=== PATIENT | female | born 1980 | race Caucasian/White ===

== ENCOUNTER → 2017-03-15 12:50 | Outpatient (CLI) | payer MEDICAID, SELFPAY ==
--- NOTE | 2017-03-15 12:58 | HPBI_ITS ---
MAMMOGRAPHY - BILATERAL DIAGNOSTIC REASON FOR EXAM: Female, 36 years old. One-week history of left breast lump. PERTINENT HISTORY: Non-contributory. TECHNIQUE: Digital bilateral breast zoe (3D mammographic acquisition) in the CC and MLO projections. 2-D mediolateral oblique (MLO) and craniocaudad (CC) views of both breasts were obtained. CAD: Full Field Digital Mammography with Computer Added Detection was performed. COMPARISON: None. Baseline examination. FINDINGS: Breast Composition: The breasts are almost entirely fatty. There are no dominant masses or suspicious calcifications. No other significant abnormalities are identified. HPBI/DIAG MAMM W/CAD, BILAT IMPRESSION: Negative diagnostic mammogram. With the patient's history of a left breast lump, correlation with ultrasound is recommended. ASSESSMENT CATEGORY: BIRADS Category 0: Incomplete. Need additional imaging evaluation. A letter regarding these results will be sent to the patient by the facility within 30 days. Approximately 10% of breast cancers are not detected by mammography. A normal mammogram should not delay biopsy of a clinically suspicious abnormality. Electronically Signed: Warren Cabrales MD at 14:42 EST Tel [phone], Service support ,
--- NOTE | 2017-03-15 12:59 | US_ITS ---
STUDY: ULTRASOUND BREAST - LEFT REASON FOR EXAM: Female, 36 years old. Palpable lump left breast. TECHNIQUE: Axial and longitudinal images of the LEFT breast were performed with a high resolution ultrasound transducer. COMPARISON: Comparison is made with prior mammogram done earlier in the day. FINDINGS: LEFT Breast: The palpable area was examined by ultrasound. There is homogeneous fibroglandular tissue. No solid or cystic mass lesion is seen. US/Breast Limited Unilateral IMPRESSION: Unremarkable ultrasound of the left breast. No solid or cystic mass lesion is seen. ASSESSMENT CATEGORY: BIRADS Category 1: Negative. A letter regarding these results will be sent to the patient by the facility within 30 days. Electronically Signed: Warren Cabrales MD at 15:19 EST Tel [phone], Service support ,
== END ==
DX: N63.21 Unspecified lump in the left breast, upper outer quadrant (principal)
CPT/HCPCS: 76642; 77062; 77066; G0279

== ENCOUNTER 2018-07-29 02:55 | Emergency (ER) | payer MEDICAID, SELFPAY ==
--- NOTE | 2018-07-29 03:00 | RAD_ITS ---
STUDY: X-RAY - ACUTE ABDOMINAL SERIES REASON FOR EXAM: Female, 37 years old. Increased bowel movements and gas for 2 1/2 weeks. TECHNIQUE: Single view of the chest. Supine, upright view(s) of the abdomen were obtained. COMPARISON: None. FINDINGS: The lungs are clear and expanded. Normal size heart. Normal mediastinum and jcarlos. Normal visualized pulmonary arteries. Normal visualized aortic arch and descending thoracic aorta. There is a non-specific bowel gas pattern. The soft tissue structures of the abdomen and pelvis are unremarkable. Normal visualized osseous structures. RAD/Acute Abdomen Inc Chest IMPRESSION: Normal x-ray examination of the chest, abdomen, and pelvis. Electronically Signed: Ignacio Phillip MD at 3:52 EDT , Service support ,
[2018-07-29 05:01] LABS: Bacteria 0 SEEN /hpf (None Seen); Mucous, Urine 0 SEEN /hpf (<or=2+); White Blood Cells 0 SEEN /hpf (0-5)
[2018-07-29 05:03] LABS: Color, Urine Yellow (Yellow); Glucose, Dipstick 1000 mg/dl (Normal); Ketone-Dipstick Negative (Negative); Leukocyte Esterase-Dipstick Negative /ul (Negative); Nitrite-Dipstick Negative (Negative); Occult Blood-Urine 25 /ul (Negative); Protein-Dipstick 15 mg/dl (Negative); Red Blood Cells-Urine 0-5 SEEN /hpf (0-5); Squamous Epithelial Cells - UA 0-5 SEEN /hpf (5-10); Urine Bilirubin Dipstick Negative (Negative); Urine Clarity Clear (Clear); Urine Urobilinogen Normal (Normal); Urine pH 6.5 (5.0 - 8.0)
[2018-07-29 05:04] LABS: Internal QC Validated? YES +Cl - CLEAR BKGD; Pregnancy, Urine Negative Negative
--- NOTE | 2018-07-29 07:49 | ED.DCSUM_ITS ---
- ER Visit Summary Date of Service: 07/29/18 Chief Complaint: Back pain, left leg pain, diarrhea History of Present Illness: The patient is a 37 F with history of anxiety, bipolar disorder, PTSD. She reports several week history of left lower back pain and pain in her left leg. She thinks it started after rolling her ankle and is altered her gait, thus throwing out her back. She is also complaining of frequent bowel movements. She states she initially had frequent diarrhea. Now the stools more formed that she still going multiple times a day. She denies fever or chills. She denies urinary symptoms. Physical Examination: Vital signs significant for heart rate of 114 on arrival, otherwise unremarkable. Patient sitting upright in bed no acute distress. Head neck examination normal. Heart is regular rate and rhythm. Lung sounds are clear. Abdomen is soft, nontender, with active bowel sounds. Back examination was tenderness along the left sciatic notch. No midline thoracic or lumbar tenderness. Extremity examination was no focal tenderness of the left lower extremity. She has full range of motion with strong distal pulses. Neuro exam reveals good strength and sensation throughout. She has 1+ bilateral patellar reflexes. Test Results: Acute abdominal series is unremarkable. Urinalysis shows 1000 glucose. test negative. Emergency Department Course and Treatment: Patient is not a known diabetic. BG T was obtained and was 303. Patient states she did drink pop shortly before arrival. I advised her on concerned that she is diabetic and she must follow- up. She is referred to Dr. Varela. She will be given a short course of naproxen for her sciatica. We will not give her steroids in light of her hyperglycemia. Treatment Plan: [] Disposition: Discharge Impression: 1. Sciatica 2. Hyperglycemia This note was generated with [employer]ation software. It may contain incorrect words, spelling, and punctuation that were not noted in review of the chart prior to signing ED Disposition - Plan for ED Patient: Disposition: Home or Assisted Living Referrals: Care Physician,No Primary [Primary Care Provider] -
[2018-07-29 11:06] LABS: Bedside Glucose 303 mg/dL (70-110)
== END 2018-07-29 04:42 | disposition home or self-care (01) ==
LOC: ED 04:54
PROVIDERS: Emergency Provider Emergency Medicine
DX: M54.42 Lumbago with sciatica, left side (principal); R73.9 Hyperglycemia, unspecified
CPT/HCPCS: 74022; 81001; 81025; 82962; 99282

== ENCOUNTER → 2018-09-05 | Outpatient (CLI) | payer MEDICAID, SELFPAY ==
[2018-09-04 16:32] VITALS: BMI 37.0
[2018-09-05 12:27] LABS: Absolute Lymphocyte Count 2.56 X10^3/uL (0.83-4.51); Absolute Neutrophil Count 7.4 X10^3/uL (2.0-7.7); Basophil# 0.06 X10^3/uL; Basophil% 0.5 % (0-1); Eosinophil# 0.34 X10^3/uL; Eosinophils% 3.1 % (0-5); Hematocrit 45.7 % (37-47); Hemoglobin 15.5 g/dL (12.0-15.0); Lymphocyte # 2.56 X10^3/ul (4.0); Lymphocyte % 23.2 % (19-41); Mean Corp Hgb Conc 33.9 g/dL (32-36); Mean Corpuscular Hgb 32.4 pg (27.0-32.0); Mean Corpuscular Volume 95.4 fL (81-99); Mean Platelet Vol. 11.3 fl (6.2-12.0); Monocyte# 0.62 X10^3/uL; Monocyte% 5.6 % (0-10); NRBC Flagged by Analyzer 0 % (0-5); Platelet Count 230 K/mm3 (150-450); RBC Distribution Width CV 13.3 % (11.6-14.6); RBC Distribution Width SD 47.1 fl (35.1-43.9); Red Blood Count 4.79 M/mm3 (4.2-5.4); White Blood Count 11.1 K/mm3 (4.4-11.0)
[2018-09-05 12:52] LABS: Microalbumin,Random Urine 96.1 mg/L (NO RANGE EST.)
[2018-09-05 13:04] LABS: ALB/GLOB Ratio 0.9 RATIO (0.9-2.4); AST(SGOT) 20 U/L (15-37); Alanine Aminotransfer ALT/SGPT 30 U/L (13-56); Albumin, Serum 3.7 g/dL (3.2-5.0); Alkaline Phosphatase 79 U/L (45-117); Anion Gap 5 (5-15); BUN 8 mg/dL (7-18); BUN/Creat Ratio 7.1 RATIO (10-20); Calcium,Total 9.4 mg/dL (8.5-10.1); Chloride 106 mmol/L (98-107); Cholesterol 183 mg/dL (200); Creatinine, Serum 1.12 mg/dL (0.55-1.02); EST Glomerular Filtration Rate 58 mL/min (>60); Est Glom Filt Rate - Afr Amer 71 mL/min (>60); Globulin 4.2 g/dL (2.2-4.2); Glucose 159 mg/dL (74-106); High Density Lipoprotein 29 mg/dL; Potassium 3.5 mmol/L (3.5-5.1); Protein, Total 7.9 g/dL (6.4-8.2); Sodium Level 137 mmol/L (136-145); Triglycerides 146 mg/dL; Very Low Density Lipoprotein 29 mg/dL (5-40)
== END | disposition home or self-care (01) ==
LOC: BIMLAB 09:09
PROVIDERS: PCP Internal Medicine; Visit Provider Internal Medicine
DX: E11.9 Type 2 diabetes mellitus without complications (principal)
CPT/HCPCS: 36415; 80053; 80061; 82043; 82570; 85025

== ENCOUNTER 2018-10-09 09:00 | Outpatient (RCR) | payer MEDICAID, SELFPAY ==
[2018-09-04 16:32] VITALS: BMI 37.0
== END 2018-10-11 23:59 ==
LOC: DC 09:00
PROVIDERS: PCP Internal Medicine; Visit Provider Internal Medicine
DX: E11.9 Type 2 diabetes mellitus without complications (principal); Z71.3 Dietary counseling and surveillance
CPT/HCPCS: 97802; G0108

== ENCOUNTER 2018-11-08 22:50 | Emergency (ER) | payer MEDICAID, SELFPAY ==
[2018-10-07 13:18] VITALS: BMI 37.0
[2018-11-08 22:52] VITALS: BP 136/96; PULSE 121; RESP 16; TEMP 36.7; O2SAT 97; BMI 39.6
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
[2018-11-08] MEDS: Diphth,Pertuss(Acell),Tet Vac 0.5 ML Vial IM (23:04)
[2018-11-08] MEDS: HYDROcodone Bitartrate/Apap 5/325 Tablet PO (23:05)
== END 2018-11-09 00:31 | disposition home or self-care (01) ==
PROVIDERS: Emergency Provider Emergency Medicine; Family Provider Internal Medicine; PCP Internal Medicine
DX: S02.2XXA Fracture of nasal bones, initial encounter for closed fracture (principal); S01.112A Laceration without foreign body of left eyelid and periocular area, initial encounter; F17.200 Nicotine dependence, unspecified, uncomplicated; Y04.2XXA Assault by strike against or bumped into by another person, initial encounter; Y93.89 Activity, other specified; Y92.89 Other specified places as the place of occurrence of the external cause; Y99.8 Other external cause status
CPT/HCPCS: 12013; 70450; 70486; 90471; 90715; 99284

== ENCOUNTER 2018-11-10 10:00 | Outpatient (RCR) | payer MEDICAID, SELFPAY ==
[2018-10-07 13:18] VITALS: BMI 37.0
== END 2018-11-10 23:59 ==
LOC: DC 10:00
PROVIDERS: PCP Internal Medicine; Visit Provider Internal Medicine
DX: E11.9 Type 2 diabetes mellitus without complications (principal); Z71.3 Dietary counseling and surveillance
CPT/HCPCS: 97803; G0108

== ENCOUNTER 2018-12-02 14:00 | Outpatient (RCR) | payer MEDICARE, SELFPAY ==
[2018-11-13 14:57] VITALS: BMI 39.6
== END 2018-12-11 23:59 ==
LOC: DC 14:00
PROVIDERS: PCP Internal Medicine; Visit Provider Internal Medicine
DX: Z71.3 Dietary counseling and surveillance (principal); E11.9 Type 2 diabetes mellitus without complications
CPT/HCPCS: 97803

== ENCOUNTER → 2018-12-08 | Outpatient (CLI) | payer MEDICARE, SELFPAY ==
[2018-12-08 10:38] VITALS: BMI 39.6
[2018-12-08 12:21] LABS: Absolute Lymphocyte Count 2.41 X10^3/uL (0.83-4.51); Absolute Neutrophil Count 9.4 X10^3/uL (2.0-7.7); Basophil# 0.05 X10^3/uL; Basophil% 0.4 % (0-1); Eosinophil# 0.25 X10^3/uL; Hematocrit 43.8 % (37-47); Hemoglobin 14.6 g/dL (12.0-15.0); Lymphocyte # 2.41 X10^3/ul (4.0); Lymphocyte % 18.9 % (19-41); Mean Corp Hgb Conc 33.3 g/dL (32-36); Mean Corpuscular Hgb 30.5 pg (27.0-32.0); Mean Corpuscular Volume 91.4 fL (81-99); Mean Platelet Vol. 11.3 fl (6.2-12.0); Monocyte# 0.57 X10^3/uL; Monocyte% 4.5 % (0-10); NRBC Flagged by Analyzer 0 % (0-5); Neutrophil # 9.41 X10^3/uL (2.7-7.7); Neutrophil % 73.8 % (47-70); Platelet Count 233 K/mm3 (150-450); RBC Distribution Width CV 13.2 % (11.6-14.6); RBC Distribution Width SD 44.3 fl (35.1-43.9); Red Blood Count 4.79 M/mm3 (4.2-5.4); White Blood Count 12.7 K/mm3 (4.4-11.0)
[2018-12-08 12:39] LABS: Microalbumin,Random Urine 61.4 mg/L (NO RANGE EST.); Microalbumin:Creatinine Ratio 44.2 mg/g CRE (<30 mg/g CRE)
[2018-12-08 12:44] LABS: Anion Gap 7 (5-15); BUN 12 mg/dL (7-18); BUN/Creat Ratio 10.9 RATIO (10-20); Calcium,Total 9.3 mg/dL (8.5-10.1); Chloride 106 mmol/L (98-107); EST Glomerular Filtration Rate 59 mL/min (>60); Est Glom Filt Rate - Afr Amer 72 mL/min (>60); Glucose 113 mg/dL (74-106); Potassium 3.9 mmol/L (3.5-5.1); Sodium Level 137 mmol/L (136-145)
== END | disposition home or self-care (01) ==
LOC: BIMLAB 10:58
PROVIDERS: PCP Internal Medicine; Visit Provider Internal Medicine
DX: E11.9 Type 2 diabetes mellitus without complications (principal)
CPT/HCPCS: 36415; 80048; 82043; 82570; 85025

== ENCOUNTER 2018-12-17 11:09 | Outpatient (RCR) | payer MEDICARE, MEDICAID, SELFPAY ==
[2018-12-08 10:38] VITALS: BMI 39.6
== END 2019-01-10 23:59 ==
LOC: DC 11:09
PROVIDERS: PCP Internal Medicine; Visit Provider Internal Medicine
DX: Z71.3 Dietary counseling and surveillance (principal); E11.9 Type 2 diabetes mellitus without complications
CPT/HCPCS: G0108

== ENCOUNTER 2019-01-28 10:43 | Outpatient (RCR) | payer MEDICARE, MEDICAID, SELFPAY ==
[2018-12-08 10:38] VITALS: BMI 39.6
== END 2019-02-10 23:59 ==
LOC: DC 10:43
PROVIDERS: PCP Internal Medicine; Visit Provider Internal Medicine
DX: Z71.3 Dietary counseling and surveillance (principal); E11.9 Type 2 diabetes mellitus without complications
CPT/HCPCS: 97803

== ENCOUNTER 2019-03-01 13:52 | Emergency (ER) | payer MEDICARE, MEDICAID, SELFPAY ==
[2018-12-08 10:38] VITALS: BMI 39.6
[2019-03-01] VITALS (8 sets, daily range): BP systolic 113–121; BP diastolic 75–86; PULSE 72–111; RESP 15–18; TEMP 36.7–36.9; O2SAT 96–97; BMI 37.8
[2019-03-01 14:51] LABS: Red Blood Cells-Urine 0 SEEN /hpf (0-5)
[2019-03-01 14:54] LABS: Color, Urine Yellow (Yellow); Glucose, Dipstick Normal (Normal); Ketone-Dipstick Negative (Negative); Leukocyte Esterase-Dipstick 25 /ul (Negative); Nitrite-Dipstick Negative (Negative); Occult Blood-Urine 25 /ul (Negative); Protein-Dipstick 15 mg/dl (Negative); Specific Gravity, Urine 1.015 (1.002-1.030); Urine Bilirubin Dipstick Negative (Negative); Urine Clarity Sl. Cloudy (Clear); Urine Urobilinogen Normal (Normal)
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
[2019-03-01 15:00] LABS: Bacteria 1+ /hpf (None Seen); Mucous, Urine RARE /hpf (<or=2+); Squamous Epithelial Cells - UA 0-5 SEEN /hpf (5-10); White Blood Cells 0-5 SEEN /hpf (0-5)
[2019-03-01 15:02] LABS: Absolute Lymphocyte Count 3.23 X10^3/uL (0.83-4.51); Absolute Neutrophil Count 8.9 X10^3/uL (2.0-7.7); Basophil# 0.07 X10^3/uL; Basophil% 0.5 % (0-1); Eosinophil# 0.41 X10^3/uL; Eosinophils% 3.1 % (0-5); Hematocrit 46.6 % (37-47); Hemoglobin 15.7 g/dL (12.0-15.0); Lymphocyte # 3.23 X10^3/ul (4.0); Lymphocyte % 24.1 % (19-41); Mean Corp Hgb Conc 33.7 g/dL (32-36); Mean Corpuscular Volume 91.9 fL (81-99); Mean Platelet Vol. 10.4 fl (6.2-12.0); Monocyte# 0.74 X10^3/uL; Monocyte% 5.5 % (0-10); NRBC Flagged by Analyzer 0 % (0-5); Neutrophil # 8.87 X10^3/uL (2.7-7.7); Neutrophil % 66.3 % (47-70); Platelet Count 236 K/mm3 (150-450); RBC Distribution Width CV 13.1 % (11.6-14.6); RBC Distribution Width SD 43.9 fl (35.1-43.9); Red Blood Count 5.07 M/mm3 (4.2-5.4); White Blood Count 13.4 K/mm3 (4.4-11.0)
[2019-03-01 15:10] LABS: Internal QC Validated? YES +Cl - CLEAR BKGD; Pregnancy, Serum, hCG Quali. NEGATIVE Negative
--- NOTE | 2019-03-01 15:10 | NURSING ---
REBECCA, CRISIS, WILL BE IN
[2019-03-01 15:14] LABS: Anion Gap 5 (5-15); BUN 9 mg/dL (7-18); BUN/Creat Ratio 8.7 RATIO (10-20); Calcium,Total 9.4 mg/dL (8.5-10.1); Chloride 108 mmol/L (98-107); Creatinine, Serum 1.04 mg/dL (0.55-1.02); EST Glomerular Filtration Rate 63 mL/min (>60); Est Glom Filt Rate - Afr Amer 77 mL/min (>60); Estimated Creatinine Clearance 63.96 ml/min; Glucose 115 mg/dL (74-106); Potassium 3.7 mmol/L (3.5-5.1); Sodium Level 140 mmol/L (136-145)
[2019-03-01 15:18] LABS: Amphetamine Urine VISTA NEGATIVE (<1000 ng/mL); Barbiturate Urine VISTA NEGATIVE (< 200 ng/mL); Benzodiazepine Urine VISTA NEGATIVE (< 200 ng/mL); Cocaine Urine VISTA NEGATIVE (< 300 ng/mL); Ecstacy Urine VISTA NEGATIVE (< 500 ng/mL); Methadone Urine VISTA NEGATIVE (< 300 ng/mL); PCP Urine VISTA NEGATIVE (< 25 ng/mL); THC Urine VISTA POSITIVE (< 50 ng/mL); Vista UDS pH Range 7
[2019-03-01 15:27] LABS: Alcohol, Blood (Medical)-Serum < 3.0 mg/dL
--- NOTE | 2019-03-01 16:15 | NURSING ---
REBECCA, CRISIS, HERE
--- NOTE | 2019-03-01 16:41 | ED.DCSUM_ITS ---
History of Present Illness Chief Complaint: Mental Health Informant: Patient Onset: Yesterday Context: Gradual Onset Conflict: Family, Work, Financial Timing: Continuous Current Severity: Severe Worsened by: Situational factors Associated Symptoms: Depressed, Change in Eating, Change in sleeping, Decreased Interest, Guilt, Decreased Concentration, Hopelessness, Suicidal Thoughts Specific plan (suicidal thought): Overdose on all of her medications Narrative: 38-year-old female history of bipolar disorder presents to the emergency department with thoughts of suicide. Patient has a history of manic depressive bipolar disorder and has been very depressed she has had decreased interest she does not feel like her medications are working and she has thought about overdosing on her pills since yesterday. No drugs or alcohol. She has not attempted suicide. No hallucinations paranoia or delusions. Prior similar symptoms: Yes Recent Illness/Hospitalization: No Past Medical History - Allergies and Home Meds Allergies/Adverse Reactions: Allergies No Known Allergies Allergy (Verified 03/01/19 13:55) Primary Care Physician: Ashley Varela MD [Primary Care Provider] - Prior records reviewed: Yes Past Medical History: - - [id number] diabetes type 2, bipolar di sorder Surgical History: no surgical history, noncontributory Lives: With Family Smoking Status: Current every day smoker Alcohol: None Drugs: None Review of Systems All systems negative except as indicated General: Denies: Chills, Fever Eyes: Denies: Visual changes - bilaterally, Blurred Vision - bilaterally ENT: Denies: Rhinorrhea, Sore throat Cardiovascular: Denies: Chest pain, Palpitations, Heart racing Respiratory: Denies: Dyspnea, Cough, Sputum Gastrointestinal: Denies: Abdominal pain, Nausea, Vomiting, Diarrhea, Constipation, Melena Genitourinary: Denies: Dysuria, Hematuria, Frequency Musculoskeletal: Denies: Myalgias, Arthralgias, Neck pain, Back pain, Swelling, Extremity Pain Skin: Denies: Rash, Abscess, Abrasions, Wounds Neurological: Denies: Headache, Weakness, Parasthesia Psych: Reports: Depression, Suicidal thoughts, Suicidal ideations. Denies: Anxiety Physical Exam Vital Signs/Narrative: Vital Signs Temp Pulse Resp BP Pulse Ox 03/01/19 16:00 72 16 119/75 96 03/01/19 15:00 18 03/01/19 14:53 18 03/01/19 13:53 98.4 F 111 H 16 121/78 H 97 Inital Vital Signs reviewed: Yes General: Well nourished, Well developed, Obese Head: Normocephalic, Atraumatic Eyes: Perrl, EOMI ENT: Moist mucous membranes Neck: Supple, Nontender, No lymphadenopathy, No JVD Cardiovascular: Regular rate, Regular rhythm, No murmurs Respiratory: No distress, CTA bilaterally, Chest nontender Abdomen: Soft, Nontender, Nondistended, Normal bowel sounds, No masses Back: Nontender, Normal Inspection Extremities: Nontender, No Edema Skin: Normal color, No rash Neurological: Alert, Oriented x3 Psych: Normal Speech Pattern, Logical sequential goal directed thoughts, Normal Appearance, Depressed, Flat Affect, Suicidal thoughts Diagnostic/Tx/Re-eval Laboratory Tests 03/01/19 03/01/19 03/01/19 Range/Units 14:52 14:52 14:52 WBC (4.4-11.0) K/mm3 RBC (4.2-5.4) M/mm3 Hgb (12.0-15.0) g/dL Hct (37-47) % MCV (81-99) fL MCH (27.0-32.0) pg MCHC (32-36) g/dL RDW Std Deviation (35.1-43.9) fl RDW Coeff of Ramon (11.6-14.6) % Plt Count (150-450) K/mm3 MPV (6.2-12.0) fl Immature Gran % (Auto) (0.0-0.9) % Neut % (Auto) (47-70) % Lymph % (Auto) (19-41) % [place]calfe % (Auto) (0-10) % Eos % (Auto) (0-5) % Baso % (Auto) (0-1) % Absolute Neuts (auto) (2.0-7.7) X10^3/uL Absolute Lymphs (auto) (0.83-4.51) X10^3/uL Nucleated RBC % (0-5) % Sodium 140 (136-145) mmol/L Potassium 3.7 (3.5-5.1) mmol/L Chloride 108 H (98-107) mmol/L Carbon Dioxide 27.0 (21.0-32.0) mmol/L Anion Gap 5 (5-15) BUN 9 (7-18) mg/dL Creatinine 1.04 H (0.55-1.02) mg/dL Estim Creat Clear Calc 63.96 ml/min Est GFR (MDRD) Af Amer 77 (>60) mL/min Est GFR (MDRD) Non-Af 63 (>60) mL/min BUN/Creatinine Ratio 8.7 L (10-20) RATIO Glucose 115 H (74-106) mg/dL Calcium 9.4 (8.5-10.1) mg/dL Serum , Qual NEGATIVE Negative Urine Color (Yellow) Urine Clarity (Clear) Urine pH (5.0 - 8.0) Ur Specific [place] (1.002-1.030) Urine Protein (Negative) mg/dl Urine Glucose (UA) (Normal) mg/dl Urine Ketones (Negative) mg/dl Urine Occult Blood (Negative) /ul Urine Nitrite (Negative) Urine Bilirubin (Negative) mg/dL Urine Urobilinogen (Normal) mg/dl Ur Leukocyte Esterase (Negative) /ul Urine RBC (0-5) /hpf Urine WBC (0-5) /hpf Ur Squamous Epith Cells (5-10) /hpf Urine Bacteria (None Seen) /hpf Urine Mucus (<or=2+) /hpf Urine Opiates Screen (< 300 ng/mL) Urine Methadone Screen (< 300 ng/mL) Ur Barbiturates Screen (< 200 ng/mL) Ur Phencyclidine Scrn (< 25 ng/mL) Ur Amphetamines Screen (<1000 ng/mL) U Methamphetamin-MDMA (< 500 ng/mL) U Benzodiazepines Scrn (< 200 ng/mL) Urine Cocaine Screen (< 300 ng/mL) U Cannabinoids Screen (< 50 ng/mL) Ur Drug Screen Comment Ethyl Alcohol < 3.0 mg/dL 03/01/19 03/01/19 03/01/19 Range/Units 14:52 14:45 14:45 WBC 13.4 H (4.4-11.0) K/mm3 RBC 5.07 (4.2-5.4) M/mm3 Hgb 15.7 H (12.0-15.0) g/dL Hct 46.6 (37-47) % MCV 91.9 (81-99) fL MCH 31.0 (27.0-32.0) pg MCHC 33.7 (32-36) g/dL RDW Std Deviation 43.9 (35.1-43.9) fl RDW Coeff of Ramon 13.1 (11.6-14.6) % Plt Count 236 (150-450) K/mm3 MPV 10.4 (6.2-12.0) fl Immature Gran % (Auto) 0.500 (0.0-0.9) % Neut % (Auto) 66.3 (47-70) % Lymph % (Auto) 24.1 (19-41) % [place] % (Auto) 5.5 (0-10) % Eos % (Auto) 3.1 (0-5) % Baso % (Auto) 0.5 (0-1) % Absolute Neuts (auto) 8.9 H (2.0-7.7) X10^3/uL Absolute Lymphs (auto) 3.23 (0.83-4.51) X10^3/uL Nucleated RBC % 0 (0-5) % Sodium (136-145) mmol/L Potassium (3.5-5.1) mmol/L Chloride (98-107) mmol/L Carbon Dioxide (21.0-32.0) mmol/L Anion Gap (5-15) BUN (7-18) mg/dL Creatinine (0.55-1.02) mg/dL Estim Creat Clear Calc ml/min Est GFR (MDRD) Af Amer (>60) mL/min Est GFR (MDRD) Non-Af (>60) mL/min BUN/Creatinine Ratio (10-20) RATIO Glucose (74-106) mg/dL Calcium (8.5-10.1) mg/dL Serum , Qual Negative Urine Color Yellow (Yellow) Urine Clarity Sl. Cloudy (Clear) Urine pH 7.0 (5.0 - 8.0) Ur Specific [place] 1.015 (1.002-1.030) Urine Protein 15 H (Negative) mg/dl Urine Glucose (UA) Normal (Normal) mg/dl Urine Ketones Negative (Negative) mg/dl Urine Occult Blood 25 H (Negative) /ul Urine Nitrite Negative (Negative) Urine Bilirubin Negative (Negative) mg/dL Urine Urobilinogen Normal (Normal) mg/dl Ur Leukocyte Esterase 25 H (Negative) /ul Urine RBC 0 SEEN (0-5) /hpf Urine WBC 0-5 SEEN (0-5) /hpf Ur Squamous Epith Cells 0-5 SEEN (5-10) /hpf Urine Bacteria 1+ (None Seen) /hpf Urine Mucus RARE (<or=2+) /hpf Urine Opiates Screen NEGATIVE (< 300 ng/mL) Urine Methadone Screen NEGATIVE (< 300 ng/mL) Ur Barbiturates Screen NEGATIVE (< 200 ng/mL) Ur Phencyclidine Scrn NEGATIVE (< 25 ng/mL) Ur Amphetamines Screen NEGATIVE (<1000 ng/mL) U Methamphetamin-MDMA NEGATIVE (< 500 ng/mL) U Benzodiazepines Scrn NEGATIVE (< 200 ng/mL) Urine Cocaine Screen NEGATIVE (< 300 ng/mL) U Cannabinoids Screen POSITIVE H (< 50 ng/mL) Ur Drug Screen Comment Ethyl Alcohol mg/dL Laboratory work-up unremarkable. Patient was seen by crisis will be pink slipped and transferred to a psychiatric facility. She remained stable throughout her stay in the emergency department without any need for medications or restraints ED Disposition - Plan for ED Patient: Disposition: Psychiatric Hospital or Unit Diagnosis: Suicidal ideation, Bipolar disorder Referrals: Ashley Varela MD [Primary Care Provider] -
[2019-03-01] MEDS: LORazepam 1 MG Tablet PO (22:02)
[2019-03-01] MEDS: Topiramate 25 MG Tablet PO (22:08)
[2019-03-01] MEDS: metFORMIN HCl 850 MG Tablet PO (22:08)
[2019-03-01] MEDS: ARIPiprazole 5 MG Tablet 30 MG PO (22:35)
--- NOTE | 2019-03-01 23:05 | ED.RN ---
ABILIFY 30 MG PO X 1 GIVEN AT THIS TIME
== END 2019-03-01 23:07 ==
PROVIDERS: Emergency Provider Physician Assistant Medical; PCP Internal Medicine
DX: F31.9 Bipolar disorder, unspecified (principal); R45.851 Suicidal ideations; E11.9 Type 2 diabetes mellitus without complications; F17.200 Nicotine dependence, unspecified, uncomplicated; Z79.84 Long term (current) use of oral hypoglycemic drugs; Z79.899 Other long term (current) drug therapy
CPT/HCPCS: 36415; 80048; 80307; 80320; 81001; 84703; 85025; 99284; G0480

== ENCOUNTER 2019-03-13 09:00 | Outpatient (RCR) | payer MEDICARE, MEDICAID, SELFPAY ==
[2019-03-01 13:53] VITALS: BMI 37.8
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
--- NOTE | 2019-03-13 10:10 | BH.SGPN.GN ---
Behaviors/Verbalizations/Mental Status: []Client alert and oriented, casually dressed and groomed. Eye contact good. Motor activity appropriate. Speech within normal limits. Affect congruent, mood anxious and dysthymic. Thoughts linear, logical, no signs of hallucinations or delusions. Client Response/Progress/Benefit: []Client responded well to session, attentive and listening throughout, though a mostly passive participant. Able to work with group to define and identify differences between internal and external conflict. Client reported disliking conflict which she indicated can lead to shutting down and can make people not confront conflicts Group reported the benefits of addressing conflict included personal growth, increased trust, and preventing further consequences. Group identified and discussed consequences of not addressing conflict in healthy ways which included: decreased trust, damaged relationships, increased mental health symptoms, and not getting one?s needs met. Benefited as client was able to identify and define conflict as well as increase awareness of how conflict style impacts mental health. Pt first day in IOP tx, though able to engage. Will continue IOP tx to promote increased insight and application of healthy skills, reduce mental health sx severity, and further improve daily functioning. Narrative Note: []
--- NOTE | 2019-03-13 11:13 | BH.SGPN.GN ---
Behaviors/Verbalizations/Mental Status: []Client alert and oriented, neatly dressed and groomed. Eye contact good. Motor activity appropriate. Speech within normal limits. Affect constricted, mood anxious and dysthymic. Thoughts linear, logical, no signs of hallucinations or delusions. Client Response/Progress/Benefit: []Client responded well to session, providing to discussion and activity. Contributed to ongoing discussion of the different conflict resolution styles, drawbacks, and appropriate times of use. Client stated she most often accommodates or avoids when faced with conflict. Client shared ?I always put others first? Client reported this type of conflict resolution style negatively impacts her mental health as it causes client to feel taken advantage of, it weakens relationships, and it leads client to respond to situations emotionally. Client worked cooperatively with group to identify healthy strategies to manage conflict. Client stated she will work on improving her conflict resolution style by practicing thanking people when they actually listen to client?s needs. Client appeared to benefit from increasing awareness of her personal conflict resolution style and from learning ways to increase healthy conflict resolution. Client?s first day in IOP. Will continue tx to prevent decompensation of symptoms, maintain safety, and promote mood stability. Narrative Note: []
--- NOTE | 2019-03-13 12:48 | BH.COMM ---
Communication Note - Communication with Client Communication Note: Therapist checked-in with client after her first day. Therapist explored client's thoughts about first day and introduced self as client's individual therapist.
--- NOTE | 2019-03-13 21:23 | BH.DR.ITP ---
Initial Treatment Plan - Patient Information Visit Information: ADMISSION DATE: EXPECTED LOS: 4-6 weeks Diagnoses:: F31.63 Bipolar 1 disorder most recent episode mixed severe, without psychosis; with rapid cycling.; Anxiety disorder NOS; PTSD - Problems/Symptoms Problem #1:: Mood cycling w depression & manic symptoms Symptom:: depression, sadness, suicidal thoughts, decreased sleep, impulsivity, anhedonia Symptom:: Anxiety Problem #2:: panic attacks, rumination
== END 2019-03-13 23:59 ==
LOC: BHIOP 09:00
PROVIDERS: PCP Internal Medicine; Referring Provider Psychiatry & Neurology Psychiatry; Visit Provider Psychiatry & Neurology Psychiatry
DX: F31.63 Bipolar disorder, current episode mixed, severe, without psychotic features (principal); F41.9 Anxiety disorder, unspecified; F43.10 Post-traumatic stress disorder, unspecified
CPT/HCPCS: H0035; 90853

== ENCOUNTER 2019-03-16 09:00 | Outpatient (RCR) | payer MEDICARE, MEDICAID, SELFPAY ==
[2019-03-01 13:53] VITALS: BMI 37.8
--- NOTE | 2019-03-16 09:05 | BH.SGPN.GN ---
Behaviors/Verbalizations/Mental Status: [] Eye contact is good. Motor activity is appropriate. Appearance is casual. Speech is Appropriate. Mood is depressed. Affect is flat. Thoughts are linear and logical. No evidence of psychosis. Reviewed daily check in sheet and pt reports 3/5 for suicidal thoughts and 0/5 for intent. Client Response/Progress/Benefit: [] Pt was an active participant in group discussion on conflict management. Emotion for today is hopeful. Daily symptom tracker notes 4/5 for anxiety, 3/5 for panic, and 2/5 for agitation. Pt reports that her mood this weekend was erratic. Was productive and able to manage mood well on Saturday however was significant depressed on Saturday. Reports that she cried all day on Saturday. Also noted low energy, panic attacks, anhedonia, and isolation. Reports that she laid in bed ost of the day due to depression. Could not identify any specific trigger. Insight during discussion that lack of structure and purtpose Narrative Note: []
--- NOTE | 2019-03-16 10:08 | BH.SGPN.GN ---
Behaviors/Verbalizations/Mental Status: []Client alert and oriented, casually dressed and groomed. Eye contact good. Motor activity appropriate. Speech within normal limits. Affect constricted, mood depressed. Thoughts linear, logical, no signs of hallucinations or delusions. Client Response/Progress/Benefit: []Client was an active participant throughout session, contributing to discussion and attentive. When processing quote client agreed it's important to recognize all steps taken not just the end goal. Group worked together to define goals and identify the benefits of developing goals which included: gives hope, feeling accomplished, increase self-esteem, accountability, gives direction, and increases motivation. Worked with group to identify barriers to goals which included: negative thinking, predicting negative outcome, avoidance, self-doubt, fear of failure, and lack of energy. Attentive and contributing during education on developing SMART goals. Benefited from increase awareness of goal-setting methods. Will continue in IOP to stabilize mood, increase healthy coping, and prevent decompensation. Narrative Note: []
--- NOTE | 2019-03-16 11:11 | BH.SGPN.GN ---
Behaviors/Verbalizations/Mental Status: []Client alert and oriented, casually dressed and appropriately groomed. Eye contact fair to good. Motor activity appropriate. Speech within normal limits. Affect constricted, mood anxious. Thoughts linear, logical, no signs of hallucinations or delusions. Client Response/Progress/Benefit: []Client attentive throughout, engaged in discussion and completing worksheet. Engaged in creating own mental health SMART goal. Client identified goal as: ?do self-care everyday by taking a shower and getting dressed for a week.? Client reported this will benefit her by giving client motivation and making her feel better about herself. Client identified potential barriers to accomplishing goal to include: laziness, making excuses, and difficulty getting out of bed. Client reported she will overcome barriers by practicing opposite action, using positive self-talk to remind client why this will help her, and writing out a list of benefits to showering. Client seemed to benefit from identifying a SMART goal and coming up with strategies to overcome potential barriers. Client?s second day of IOP. Will continue IOP tx to prevent decompensation of mood symptoms, increase use of healthy coping skills, and improve daily functioning. Narrative Note: []
--- NOTE | 2019-03-16 15:00 | BH.MDN ---
Multi-Disciplinary Note - Note 45-min Individual Time Started:: 12:13 Date: 03/16/19 Purpose of session/treatment goals addressed:: The purpose of this session was to gather information on client's current stressors, symptoms, and treatment goals. Another goal was to build rapport and assess for risk. Eye Contact:: Fair Motor Activity:: Appropriate Appearance:: Casual Speech:: Rapid Mood:: Anxious, Depressed Affect:: Congruent - tearful at times Thoughts:: Racing, No evidence of hallucinations/delusions noted Staff Interventions:: Therapist used active listening and open-ended questions to explore client's current stressors, symptoms, history, and treatment goals. Therapist used strengths perspective to build rapport and help client identify personal resilience factors. Therapist provided psychoeducation on depression, trauma, and bipolar disorder. Therapist assessed risk and client willing to plan for safety. Therapist gave homework to review a DBT worksheet on emotional regulation. Client Response:: Client responded well to session, open to meeting with therapist. Client shared that her weekend was full of ups and downs. Client reported she was able to cook for herself and spend time with her family. However, client shared on Saturday she was depressed with fleeting suicidal ideations. Client stated she stayed in bed for awhile and was crying, but then was able to talk to a friend which improved her mood. Client reported when she feels depressed her thoughts become distorted and client feels like I have nobody that understands me. Client reports a history of rapid cycling and stated that she could rapid cycle in a day. Client and therapist discussed the importance of identifying warning signs and triggers. Client able to identify some of her triggers which included talking to men, trauma triggers, and feeling alone. Client has an extensive trauma history and likely has complex trauma that continues to impact client. Client receptive to learning about how to better regulate her emotions to prevent erratic mood swings and unhealthy emotional urge reactions. Client willing to work on identifying her emotional urges for homework. Client's treatment goals included; increasing self-love, healing, setting healthy boundaries, and regulating her emotions more effectively. Client denies active suicidal ideations today and reports I feel better. Client is future oriented and shared she has so many things to do today. Risks/Concerns:: Client reported yesterday she had some fleeting suicidal ideations, but with no plan or intent. Client shared I feel better today and denies any active suicidal ideations, plan, or intent as of 03/16/19. Future oriented and has plans today. Reports ability to maintain safety. Progress Toward Goals/Plan:: Client's second day of IOP, no progress to document at this time. Per client's report she is rapid cycling, but she is currently the most depressed I've been. Client endorses erratic mood, crying spells, fleeting suicidal ideations with no intent, ruminations, and anhedonia. Client appears receptive to treatment and motivated. Will continue IOP tx to prevent decompensation, improve mood stability, and increase use of healthy coping skills. Time Stopped:: 12:55
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
--- NOTE | 2019-03-18 09:29 | BH.NA_ITS ---
Physical Data - Vital Signs Temperature: 98 F Pulse Rate: 84 Respiratory Rate: 16 Blood Pressure: 128/70 - Height/Weight Height: 1.63 m Weight:: 99.79 kg Weight in Pounds: 220.0 lbs Current Medication Compliance - Medication Compliance Do you take your medication as prescribed?: Yes Nutritional History - Appetite Nutritional Instructions:: If client shows signs of a swallowing problem, weight change of 10 pounds or more in the last month, or is on a diabetic diet, the physician will review and request a dietitian consult, as appropriate. All unintentional weight loss will be referred to the physician for decision on need for dietitian consult. Describe your appetite:: Good Additional nutritional information:: Client states she has lost about 20lbs in the last 6 months since her diabetes diagnosis. Functional Assessment - Sleep Pattern Describe any problems with sleeping: Client states her sleep is decent, stating she sleeps about 7 hours per night. - Activities Motor Activity:: Functional Sensory/Communication Assess - Communication Problems Do you have difficulty understanding what people are saying?: No Medical Problems/History - Metabolic Conditions Metabolic: Diabetes Comments:: states diagnosed about 6 months ago - Musculoskeletal Conditions Musculoskeletal: Other (See comments) Comments:: sciatic nerve pain at times - Pain Assessment Do you have acute or chronic pain?: No - Family History Family History: Family History (Last Updated 09/16/18 @ 08:57 by Sol Pereira) Grandmother Diabetes Arthritis Liver disease Uncle Alcoholism Brother Epilepsy Substance Abuse - Substance Abuse Please describe substance abuse in the last 30 days:: Client states she used to drink alcohol heavily in her 20's. Client states since her son was born 11 years ago, she only drinks socially very infrequently. Client states she has been a tobacco smoker for about 24 years, stating she smokes 1.5 packs per day. Client states she started using marijuana when she was 14, and used it daily unt il she was 35. Client states the last time she used marijuana was right before her hospitalization but states she does not use now and does not plan to. Mental Status Summary - Mental Status Significant Findings/Observations on Appearance and Mood:: Client alert and oriented x 4. Client is casually groomed. Client is cooperative with assessment and makes good eye contact during conversation. Client's voice volume and rate are normal, and speech is coherent and spontaneous. Client appears mildly depressed and anxious, no anger noted. Client's affect is slightly flat. Client makes logical associations and processing is normal. Client denies delusions and hallucinations and no evidence of delusions/hallucinations noted at this time. Client denies SI, states today is the first day since being in the hospital that she has not had SI. Client with good attention and concentration during assessment. Suicide Assessment - Suicidal Ideation Are you currently or have you been suicidal in the past?: Yes Suicidal Intentional Rating Scale (SIRS): No suicidal thoughts (past or present), Suicidal thoughts (past) - denies SI at this time. Physician Notification: If Active suicidal thoughts/Will not contract for safe ty is checked, contact physician and document in the Physician Notification section below. Past Psychiatric History - MH Treatment Hx Past Psychiatric Medications:: Seroquel, [place], Risperdal, Geodon Age of first mental health symptoms: Client states she was diagnosed with depression around age 29 and diagnosed with bipolar around age 30. Client states she was diagnosed with PTSD and anxiety later after she started therapy. Describe (age, circumstance, etc) any past hospitalizations: Client was recently hospitalized from 03/02/19-03/09/19 at [facility] due to ivonne, depression and SI. Client states she had felt maniac for awhile, but after a couple of days of depression symptoms, she took herself to the hospital to be admitted. Client has been admitted to [facility] and [facility] for psychiatric hospitalizations in the past. Current providers for mental health treatment (counselor, psychiatrist, employment case manager, etc.): Client goes to [facility] for therapy and psychiatry. Fall Risk Assessment - Age Age: Less than 60 - Mental Status Mental Status: Willing & able to ask for assistance when needed - Physical Status Physical Status: No problems - Impairments Impairments: None - Elimination Elimination: Continent AND independent - Gait or Balance Gait or Balance: Walks independently - Hx of Falls History of falls in the past 6 months: No known history - Medications/Substances Psychotropics:: Antidepressants, Antipsychotics, Mood stabilizers Medications/substances used within the past 24 hours or ordered to administer: 1-2 of the medications/substances listed above - Total Score Total Points:: 1 RN Summary of Impressions - Impressions Recommendations: Include psychiatric and medical issues, treatment planning recommendations, and discharge planning needs. Impressions: Psychiatric Issues: bipolar 1 disorder most recent episode mixed severe without psychosis with rapid cycling, anxiety disorder unspecified, PTSD, cluster B traits Impression: Medical Issues: Client recently diagnosed with diabetes. Client's A1C while at [facility] is 6.0 and client takes Metformin twice daily. Client states she has been seeing a dietitian at [facility] for help with nutrition and her primary care doctor has talked to her about symptoms to watch for, checking her feet, doing exercise. Client states she has seen a hydrologic engineer. Client denies need for further education at this time. - Level of Care How do the client's current symptoms and functional deficits support need for this level of care?: Client states she has felt manic for a few months, but states she started feeling depressed for a couple of days and knew it was time to take her self to the hospital. Client states when she is manic, she has sex binges and impulsive behavior. Client states when her depression symptoms started, she had less energy and motivation, was not sleeping well, feelings of anxiety. Client states she recently ended a relationship that was causing her anxiety to be high. Client states since coming out of the hospital 03/09/19, she does feel like she has some energy back and states that this is the first day since her hospitalization that she has not had SI. IOP will promote gains and prevent further decompensation while providing social support and skills training.
--- NOTE | 2019-03-18 11:15 | BH.SGPN.GN ---
Behaviors/Verbalizations/Mental Status: []Client alert and oriented, casually dressed and groomed. Eye contact good. Motor activity appropriate. Speech within normal limits. Affect constricted, mood dysthymic. Thoughts linear, logical, no signs of hallucinations or delusions. Client Response/Progress/Benefit: []Pt engaged participant in session as evidenced by pt listening attentively to others and providing input at times during session. Pt worked with the group to complete the challenge activity. Pt stated she was anxious during the activity, but was able to not give up by focusing on the common goal. Pt stated having encouragement from others also helps when trying to deal with stressors. Pt actively listening during discussion about the 4 A's of managing stress. Identified she will focus on avoiding unnecessary stressors by not engaging in unhealthy or toxic relationships. Pt seemed to benefit from increased awareness of the impact of stress on mental health and increasing repertoire of stress management strategies. Pt to continue in IOP to prevent decompensation, increase healthy coping skills, and challenge distorted thoughts. Narrative Note: []
[2019-03-18 11:16] VITALS: BP 128/70; PULSE 84; RESP 16; TEMP 36.6
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
--- NOTE | 2019-03-18 14:04 | BH.DR.ITP ---
Initial Treatment Plan - Patient Information Visit Information: ADMISSION DATE: EXPECTED LOS: 4-6 weeks - Problems/Symptoms Problem #1:: Mood cycling w depression & manic symptoms Symptom:: depression, sadness, suicidal thoughts, decreased sleep, impulsivity, anhedonia Problem #2:: Anxiety Symptom:: panic attacks, rumination
--- NOTE | 2019-03-25 09:10 | BH.SGPN.GN ---
Behaviors/Verbalizations/Mental Status: [] Eye contact is good. Motor activity is appropriate. Appearance is casual. Speech is Appropriate. Mood is euthymic. Affect is full. Thoughts are linear and logical. No evidence of psychosis. Reviewed daily check in sheet and no reports of suicidal ideations or intent. Client Response/Progress/Benefit: [] Pt participated at times during the group discussions. Emotion for today is happy. Daily symptom tracker notes 02/15 for anxiety and agitation. She notes that she is more positive this week as compared to last noting improvement rather than regression. Insight into some challenges with her son's attitude and lack of respect towards her which resulted in assertive communication. Noted stress related to her son's behaviors in which she was able to manage through help from support. Proud of herself for being assertive and having a difficulty conversation with son rather than yelling or avoiding. Increased self-care and completion of ADLs. Benefited from group support, encouragement, and feedback. Progress noted per pt report. Will continue in IOP to maintain safety, prevent re-admission to psych unit, and increase healthy coping skills. Narrative Note: []
--- NOTE | 2019-03-25 10:10 | BH.SGPN.GN ---
Addendum entered and electronically signed by Juliette Nicolas LSW 03/26/19 08:22: Pt was an engaged participant in activity as evidenced by pt providing some input throughout, though mostly remained passive. She attentively listened to others. Group worked together to come up with common negative forces in their lives which can hold them back from growth. Negative forces included: mental illness, negative thoughts, other people?s opinion and behaviors, not managing emotions, and poor choices. Group then worked together to identify common positive forces which help us grow. Theses included: Healthy coping skills, positive support, self-care, positive self-talk and opposite action, and weighing pros/cons of choices. Pt reported she believes personal growth can be further promoted by engaging in self-care and self-reflection. Pt was attentive during psychoeducation on the importance of utilizing many aspects of positive forces to help one grow. Took on a more active leadership role. Benefited from group with increased insight and awareness on the impact of negative and positive forces on mental wellness. Recommended continued tx to reduce mental health sx severity, increase positive change behaviors, and prevent decompensation. Original Note: Behaviors/Verbalizations/Mental Status: []Client alert and oriented, casually dressed and groomed. Eye contact good. Motor activity appropriate. Speech within normal limits. Affect congruent, mood anxious and dysthymic. Thoughts linear, logical, no signs of hallucinations or delusions. Client Response/Progress/Benefit: [] Narrative Note: []
--- NOTE | 2019-03-25 11:20 | BH.SGPN.GN ---
Behaviors/Verbalizations/Mental Status: []Client alert and oriented, casually dressed and groomed. Eye contact fair. Motor activity appropriate. Speech within normal limits. Affect constricted and mood anxious. Thoughts linear, logical, no signs of hallucinations or delusions. Client Response/Progress/Benefit: []Client provided input at times during discussion, listened attentively to peers. Client completed worksheet identifying her positive and negative forces in life. Client identified positive forces that aid in progressing toward mental health goals include: some family members, therapy, friendships, self-care, self-love, and art therapy. Client indicated negative forces that prevent progress include: toxic relationships, unmanaged emotions, negative self-talk, and poor boundaries. Client stated she will focus on decreasing negative force of toxic relationships by cutting out the people in her life that haven't been good for her mental health. Client seemed to benefit from increased awareness of personal positive and negative forces in life and impact they have on mental health and wellness. Client to continue IOP level of care to improve mood stabilization, increase consistent use of healthy coping skills and prevent decompensation. Narrative Note: []
--- NOTE | 2019-03-27 09:00 | BH.SGPN.GN ---
Behaviors/Verbalizations/Mental Status: []Client alert and oriented, neatly dressed and groomed. Eye contact good. Motor activity appropriate. Speech within normal limits. Affect congruent, mood euthymic. Thoughts linear, logical, no signs of hallucinations or delusions. Reviewed client?s symptom tracker, no risk for suicidal ideation or intent Client Response/Progress/Benefit: []Client responded well to session, providing supportive feedback to peers. Client reports feeling happy and positive today. Client shared multiple mental health wins today which is likely contributing to her uplifted mood. Client's mental health wins included; getting more time with her son than normal, having a good check-up with her primary care physician, and being down in weight and sugar levels. Client has diabetes and she recognizes that managing her diabetes impacts her mental health as well. Client's stressor today is that she is currently struggling financially, but client shared her parents and her ex- will help her if she needs it. Appeared to benefit from connecting with peers and reflecting on positives. Progress noted in client's report of improved self-care. Will continue IOP tx to promote mood stability, reduce impulsivity, and increase emotional regulation skills. Narrative Note: []
--- NOTE | 2019-03-27 11:16 | BH.SGPN.GN ---
Addendum entered and electronically signed by Juliette Nicolas LSW 03/29/19 18:31: Client responded well to session, taking notes throughout and providing positive input. Client contributed as the group processed the activity. Client completed the fear of failure worksheet and reported that fear of failure is keeping her from making changes in her own life. Client reported her barriers for overcoming her fear of failure include: self-doubt, feeling overwhelmed, negative thoughts, and desire to give up. Client did well to identify things to say or do to help overcome fear of failure which included: brainstorming, positive self-talk, and encouragement, asking for help from supports. Client appeared to benefit from gaining awareness of barriers and identifying strategies to reduce fear of failure. Client showing progress in ability to connect tx materials to own life and continues to improve use of healthy coping skills. Client is recommended continued IOP tx to improve mood stability, reduce depression, and prevent decompensation. Original Note: Behaviors/Verbalizations/Mental Status: []Client alert and oriented, casually dressed and groomed. Eye contact good. Motor activity appropriate. Speech within normal limits. Affect congruent, mood euthymic, anxious. Thoughts linear, logical, no signs of hallucinations or delusions. Client Response/Progress/Benefit: [] Narrative Note: []
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
--- NOTE | 2019-04-01 09:04 | BH.SGPN.GN ---
Behaviors/Verbalizations/Mental Status: []Pt alert and orient x3. Eye contact good. Motor activity is appropriate. Appearance is casual. Speech is Appropriate. Mood is depressed. Affect is flat. Thoughts are linear and logical. No evidence of psychosis. Reviewed daily check in sheet and no reports of suicidal ideations or intent. Client Response/Progress/Benefit: []Pt responded well to session, listening throughout discussion and providing supportive feedback to the group. Reports emotion for the day as ?relaxed? and indicated that this is due to getting good sleep last night, sharing some concern she has been sleeping more than usual. Expressed this is a stressor as she is unsure if it is a warning sign for a depressive state. Able to identify strategies for addressing potential strategies and preventing increased sx severity should she notice additional warning signs. Pt did well to identify current mental health win as working through a panic attack on previous date by applying positive self-talk and deep breathing. Additional win identified as challenging lack of motivation by using opposite action skills. Benefited from support of the group and identifying personal successes. Progress noted in pt ability to successfully manage sx of anxiety outside group environment. Recommended continued IOP tx to promote healthy change behaviors, increase distress tolerance and emotion regulation, and reduce overall mental health sx severity. Narrative Note: []
--- NOTE | 2019-04-01 10:18 | BH.SGPN.GN ---
Behaviors/Verbalizations/Mental Status: []Client alert and oriented, neatly dressed and groomed. Eye contact good. Motor activity appropriate. Speech within normal limits. Affect congruent, mood euthymic. Thoughts linear, logical, no signs of hallucinations or delusions. Client Response/Progress/Benefit: []Client was a passive participant during discussion, but active during the activity. Client took notes while the group discussed the quote and defined resilience. Client able to make connections between activity and barriers/supports to the development of a resilient lifestyle AEB nodding. Client nodded that if one only focuses on the negatives, it will prevent them from being resilient. Client agreed with peers that one can learn to become more resilient throughout life. Client was quiet during large group discussion, but active and providing good insight during small group activity. Client able to work with group to discuss benefits of resilience on mental health which included; better management of mental health symptoms, increased healthy coping skills, increased confidence, less fear of stressors, and personal growth. Progress noted as shown by client?s report of reduced isolation and use of self-care strategies. Recommended continued IOP tx to improve boundary setting, improve mood stability, and decrease negative thoughts that reinforce depression. Narrative Note: []
--- NOTE | 2019-04-01 14:15 | BH.MDN ---
Multi-Disciplinary Note - Note 45-min Individual Time Started:: 12:16 Date: 04/01/19 Purpose of session/treatment goals addressed:: The purpose of this session was to address current symptoms, stressors, and negative thoughts. Another goal was to learn maintenance cycles and cognitive distortions. Other topics included boundaries. Eye Contact:: Good Motor Activity:: Appropriate Appearance:: Neat Speech:: Rapid Mood:: Anxious, Dysthymic Affect:: Congruent - tearful Thoughts:: Linear, Logical, No evidence of hallucinations/delusions noted Staff Interventions:: Therapist used active listening and open-ended questions to explore client's current stressors, symptoms, and negative thoughts. Therapist reviewed client?s homework of journaling about boundary setting. Therapist provided psychoeducation on maintenance cycles and ways to break unhealthy maintenance cycles. Therapist taught client about the most common types of cognitive distortions and how they impact emotions and behaviors. Therapist gave client homework to practice self-awareness of distortions. Client Response:: Client responded well to session, open to meeting with therapist. Client shared this weekend was rough and client reported she did not do anything. However, with further exploration, it was discovered that client did more than she gave herself credit for. Client was not as active as she would like, but she was still able to accomplish several tasks each day and take care of her son. Client receptive to learning about maintenance cycles and connected with the maintenance cycle for depression. Gave personal examples of her own maintenance cycles. Client has been able to break out of depressive maintenance cycles before by using opposite action and setting small goals. Client receptive to learning about challenging distortions to break out of maintenance cycles. Client began learning about the different types of distortions. Client connected with jumping to conclusions and emotional reasoning. Will continue to learn about distortions and begin thought challenging. Risks/Concerns:: Client denies any active suicidal ideations, plan, or intent as of 04/01/19. Hopeful and future oriented throughout session. Progress Toward Goals/Plan:: Client appears to be responding well to treatment and making progress towards treatment goals. Client continues to report mood cycling, but she has been implementing healthy coping skills which has helped client not stay stuck in depressive cycles as long. Client reports reduced isolation and daily journaling. Client continues to struggle with ruminations, crying spells, poor boundaries, and negative thinking. Client responding well to learning about distortions. Will continue IOP tx to improve mood stability, promote healthy coping skills and boundaries, and reduce negative thinking. Time Stopped:: 13:00
--- NOTE | 2019-04-02 09:05 | BH.SGPN.GN ---
Behaviors/Verbalizations/Mental Status: [] Eye contact is good. Motor activity is appropriate. Appearance is neat. Speech is Appropriate. Mood is depressed. Affect is flat. Thoughts are linear and logical. No evidence of psychosis. Reviewed daily check in sheet and no reports of suicidal thoughts or intent. Client Response/Progress/Benefit: [] Pt was an active participant in group discussion. Emotions for today is hopeful. Daily symptom tracker notes 2/5 for anxiety and 1/5 for agitation. Shared that she beleives that her moods are not cycling as rapidly as they had in the past however her depression (while lower) has last for about a week. While there are benefits to this she has noticed increased sleep (10 hours yesterday) and lack of energy. She continues to complete self-care and is responsibilities however her focus has been off. Notes that she is not motivated to follow through as much. Insight that with the rapid cycling her mood were erratic however she would have more energy. Feels motivated today and discussed some goals that she had. Progress noted per pt report. Benefited from group support, encouragement, and feedback. Will continue in IOP to maintain safety, prevent decompensation, and increase healthy coping. Narrative Note: []
--- NOTE | 2019-04-02 10:06 | BH.SGPN.GN ---
Behaviors/Verbalizations/Mental Status: []Client alert and oriented, casually dressed and groomed. Eye contact good. Motor activity appropriate. Speech within normal limits. Affect congruent, mood anxious, dysthymic. Thoughts linear, logical, no signs of hallucinations or delusions. Client Response/Progress/Benefit: []Client responded well to session, attentive and providing input to discussion. Group identified the benefits to setting boundaries as well as the consequences of not setting healthy boundaries. Client shared she knows setting boundaries is important but she struggles with fearing how others will respond if she does. Participated in the discussion of benefits of setting boundaries which included; increased confidence, better relationships, needs being met, safety, and preventing burnout. Group identified the barriers that keep one from setting healthy boundaries which included fear of others reaction, low self-esteem, past experiences, lack of awareness, and lack of communication. Client engaged during discussion of the different types of boundaries and able to identify the benefits of each. Client shared she struggles to set physical and time boundaries which leads to poor self-care and burnout. Client seemed to benefit from increased awareness of how poor boundaries can negatively impact mental health. Progress noted as client has been able to share increased insight into her own mental health and apply tx materials appropriately. Will continue IOP tx to prevent decompensation, improve emotional regulation, and reduce mental health sx. Narrative Note: []
--- NOTE | 2019-04-02 11:11 | BH.SGPN.GN ---
Behaviors/Verbalizations/Mental Status: []Client alert and oriented, casual dress, hygiene appropriate. Eye contact good. Motor activity appropriate. Speech within normal limits. Affect congruent, mood anxious, dysthymic. Thoughts linear, logical, no signs of hallucinations or delusions. Client Response/Progress/Benefit: []Pt responded well to session, active participant and willing to provide insight throughout. Pt did well to engage in the boundary self-assessment activity and worked with group to further process. Pt discussed that she often struggles with feeling able to say ?no? to others and indicated that her self-care has suffered as a result. Noted that she tends to prioritize other?s needs over her own despite knowing that it is going to impact her mental health. Provided example of saying yes to several things on the previous date that put her both physically and emotionally at risk. Identified she would like to improve her ability to set healthy time boundaries by scheduling time for herself to journal and color by saying ?no? to other?s. Appeared to benefit from group discussion on strategies for further improving personal boundaries. Progress noted in pt ability to identify impact of current boundaries on mental health progress and relationships. Pt to continue IOP tx to maintain stability, decrease mental health sx severity, and continue to promote healthy change behaviors. Narrative Note: []
--- NOTE | 2019-04-03 09:09 | BH.SGPN.GN ---
Behaviors/Verbalizations/Mental Status: []Pt alert and orient x3. Eye contact fair to good. Motor activity is appropriate. Appearance is casual. Speech is Appropriate, limited input provided. Mood is euthymic. Affect is congruent. Thoughts are linear and logical. No evidence of psychosis. Reviewed daily check in sheet and no reports of suicidal ideations or intent. Client Response/Progress/Benefit: []Pt responded well to session AEB pt listening attentively to others and providing some feedback throughout. Pt reported current emotion as ?rejuvenated? and indicated this is due to setting aside time for self-care and going to [employer] to do their art therapy program. Expressed this as a mental health win. Pt did well to identify additional mental health wins. Indicating a mental health positive was being able to get her medications straightened out as this has been an ongoing stressor for her stressor for her. Pt identified additional positive as being able to make plans for her brother to come spend the weekend with her which always brings her ajay. Noted she continues to struggle with communicating with her ex and that she is worried about letting him claim their son on this year?s taxes. Pt recommended to continue IOP to increase healthy coping, improve healthy boundary setting, and prevent decompensation. Narrative Note: []
--- NOTE | 2019-04-03 10:16 | BH.SGPN.GN ---
Behaviors/Verbalizations/Mental Status: []Client alert and oriented, casually dressed and groomed. Eye contact good. Motor activity appropriate. Speech within normal limits. Affect congruent, mood euthymic. Thoughts linear, logical, no signs of hallucinations or delusions. Client Response/Progress/Benefit: []Pt active participant as shown by active listening and providing contribution to discussion. Pt shared connecting to group topic of self-care and helped the group discuss benefits of self-care. Benefits included; improved relationships, maintaining stability, less stress, increased self-esteem, and improved mood. Pt participated in the discussion of the common myths about self-care including self-care is selfish, just pampering, too much effort and time, and is self-indulgent. Shared feeling that society makes it seem like you are a bad parent if you take time for self-care. Pt participated in the discussion on debunking these myths. Seemed to benefit from increased awareness of the importance of self-care and challenging common myths that prevent practicing self-care. Discussed at times struggling to remind herself of the need and benefits of engaging in self-care due to underlying guilt about doing so. Able to identify this ultimately maintains depression and leads to resentment. Client showing progress AEB increased engagement and ability to connect with materials reviewed. Will continue IOP tx to promote gains, increase application of healthy coping skills, as well as prevent decompensation. Narrative Note: []
--- NOTE | 2019-04-03 11:20 | BH.SGPN.GN ---
Behaviors/Verbalizations/Mental Status: []Client alert and oriented, casually dressed and groomed. Eye contact good. Motor activity appropriate. Speech within normal limits. Affect congruent, mood euthymic. Thoughts linear, logical, no signs of hallucinations or delusions. Client Response/Progress/Benefit: []Client receptive of session, remaining an active participant. Pt actively listening and contributing input to discussion. Participated in group activity and connected that maintaining self-care requires balancing life stressors and making oneself a priority. Shared that not making self a priority has negatively impacted her in the past. Willing to complete worksheet activity and helped the group identify various types of self-care activities. Client completed self-assessment activity on the different areas of self-care and was able to identify current practices she uses and identify areas she can improve upon. Client reported she can improve her physical and professional self-care area. Client set a goal to improve in this area by creating daily and weekly meal plans which will additionally aid in reducing financial stress as well. Client appeared to benefit from increasing awareness of how she can improve her self-care balance. Progress noted as shown by client?s ability to connect with materials and reports of improved overall mood. Will continue IOP tx to promote mood stability, increase consistent use of coping skills, and improve overall functioning. Narrative Note: []
--- NOTE | 2019-04-07 09:00 | BH.SGPN.GN ---
Behaviors/Verbalizations/Mental Status: []Pt eye contact good, casually dressed, motor activity appropriate, speech normal rate and tone, mood euthymic, congruent affect, thoughts linear and intact, no evidence of delusions or hallucinations. Reviewed client?s symptom tracker, no signs of suicidal ideation, plan, or intent as of today. Client Response/Progress/Benefit: []Pt responded well to session as evidenced by pt listening to peers and openly sharing thoughts and feelings. Pt reported a mental health positive was engaging in a lot of self-care activities over the weekend. Pt reported she spent time with her brother, meal prepped, spent quality time with her son, and completed personal hygiene daily. Pt identified additional positive was hanging out with a friend over the weekend. Pt shared her current stressor is not having much healthy support besides her therapists. Pt stated she finds it extremely challenging to find healthy supports and her current supports sometimes make her feel worse. Pt showing progress with utilizing self-care skills. Pt to continue IOP to stabilize moods, set boundaries, and prevent decompensation. Narrative Note: []
--- NOTE | 2019-04-07 10:06 | BH.SGPN.GN ---
Behaviors/Verbalizations/Mental Status: []Client alert and orient. Appearance casual and appropriately groomed. Speech an appropriate rate and tone. Motor activity WNL. Mood euthymic, affect congruent to mood. No evidence of delusion or hallucinations.? Client Response/Progress/Benefit: []Pt receptive of session, engaged throughout the discussion on the importance of healthy communication and factors that can impact communication skills. Shared that communication has impacted her mental health in the past. Pt worked with the group to identify barriers to maintaining healthy communication which included: making assumptions, shutting down, not listening, and misinterpretations, and poor emotion regulation.?Pt indicated connecting with making assumptions and avoiding as a common communication barrier she experiences. Discussed benefits of healthy communications on mental health and maintaining healthy relationships which included: personal growth, increased trust in relationships, improved self-confidence, and prevention of decompensation. Pt receptive of and appeared to benefit from psychoeducation portion discussing different styles of communication. Progress noted in pt ability to identify current communication style and impacts on mental health. Pt noted identifying with passive communication and shared this has impacted her relationships and made it increasingly difficult to set boundaries and say no. Shared getting herself into uncomfortable and potentially unsafe situations as a result. Pt to continue in IOP tx to promote healthy change behaviors, improve emotion regulation, and prevent decompensation. Narrative Note: []
--- NOTE | 2019-04-07 11:12 | BH.SGPN.GN ---
Behaviors/Verbalizations/Mental Status: []Client alert and oriented, neatly dressed and neatly groomed. Eye contact good. Motor activity appropriate. Speech within normal limits. Affect congruent, mood euthymic and anxious. Thoughts linear, logical, no signs of hallucinations or delusions. Client Response/Progress/Benefit: []Client active participant AEB by taking notes and participating in the group activity. Client attentive during discussion on the various communication styles, their characteristics, and the pros/cons of each. Further discussed how her communication style impacts her mental health and relationships. Client identified communication goal which is to practice saying no more and to practice being receptive to feedback. Client stated she has a hard time saying no which often results in client being taken advantage of or not setting boundaries. Client seemed to benefit from increased insight into how her communication style impacts mental health and identifying strategies for increasing effective communication skills. Progress noted as shown by client's self-report of reduced isolation and increase application of self-care. Will continue IOP tx to promote mood stability, improve healthy relationships, and reduce negative thinking. Narrative Note: []
--- NOTE | 2019-04-09 09:08 | BH.SGPN.GN ---
Behaviors/Verbalizations/Mental Status: []Pt alert and orient x3. Eye contact fair to good. Motor activity is appropriate. Appearance is casual. Speech is WNL. Mood is euthymic. Affect is congruent. Thoughts are linear and logical. No evidence of psychosis. Reviewed daily check in sheet and no reports of suicidal ideations or intent. Client Response/Progress/Benefit: []Pt responded well to session AEB pt listening attentively to others and willing to process with group. Pt reported current emotion as ?relieved?, indicated this is due to spending time with her son which often results in pt feeling more rested and positive. Shared plans to continue setting aside time to spend with her son. Pt did well to identify mental health wins. Current wins include reminding herself to make time for self-care. Additional win recognized as being able to focus on positives of recent decrease in financial stress as well as what she can do to set herself up for success such as small daily goals. Shared current stressor as struggling with personalization related to an interaction with her sister. Pt did well to challenge this thought and was able to reframe with assistance from group. Progress in pt self-report of improved mood and ongoing application of skills learned, though would benefit from increased consistency. Pt recommended to continue IOP to increase consistency of healthy coping, improve stress management, and prevent decompensation. Narrative Note: []
--- NOTE | 2019-04-09 10:16 | BH.SGPN.GN ---
Behaviors/Verbalizations/Mental Status: []Client alert and oriented, neatly dressed and appropriately groomed. Eye contact good. Motor activity appropriate. Speech WNL. Affect full, mood euthymic. Thoughts linear, logical, no signs of hallucinations or delusions. Client Response/Progress/Benefit: []Client active participant as evidenced by providing input throughout discussion and taking notes during psychoeducation. Client agreed that she experiences automatic thoughts and often these thoughts can be negative. Client connected with the discussion about how distorted thought patterns can reinforce mental health symptoms. Client reported emotions impact mindset. Client noted that she connects with fortune telling, black and white thinking, and overgeneralizing. Client reported she recognizes cognitive distortions can lead to increased depression, increase anxiety, and impact relationships. Client shared she has had the thought my meds are never going to work. Appeared to benefit from increasing awareness of cognitive distortions and how they can impact emotions and behaviors. Client to continue IOP tx to promote use of healthy coping skills, improve mood stability, and promote healthy boundaries. Narrative Note: []
--- NOTE | 2019-04-09 11:20 | BH.SGPN.GN ---
Behaviors/Verbalizations/Mental Status: []Pt eye contact good, casually dressed, motor activity appropriate, speech normal rate and tone, mood euthymic, congruent affect, thoughts linear and intact, no evidence of delusions or hallucinations. Client Response/Progress/Benefit: []Client?engaged during session AEB client providing contributions throughout group session. Client acknowledged the importance of needing to have awareness and put forth the effort to challenge, reframe, and replace distorted thought patterns. Client worked cooperatively with group to challenge distorted thoughts and was attentive in learning strategies to combat distortions. Client reported a distorted thought she has is saying I'm fine to lessen how much her mental health symptoms are impacting her. Client reported this thought makes her feel depressed, alone, worried, stressed and embarrassed. Client stated the thought is minimizing because not being honest about how mental health is impacting her. Client reframed the thought to I'm not fine, I need help. Client seemed to benefit from increased awareness of cognitive distortions and practicing reframing distorted thoughts. Client to continue IOP level of care to challenge negative thoughts, continue use of healthy coping and prevent decompensation. Narrative Note: []
--- NOTE | 2019-04-09 13:40 | BH.MDN_ITS ---
Multi-Disciplinary Note - Note 45-min Individual Time Started:: 12:15 Date: 04/09/19 Purpose of session/treatment goals addressed:: The purpose of this session was to address current stressors, application of coping skills, and symptoms. Another goal was to work on the Bipolar Workbook and identify strategies to manage depression and ivonne. Other topics included; boundaries and self-care. Eye Contact:: Good Motor Activity:: Appropriate Appearance:: Neat Speech:: Rapid Mood:: Euthymic Affect:: Congruent Thoughts:: Linear, Logical, No evidence of hallucinations/delusions noted Staff Interventions:: Therapist used active listening and open-ended questions to explore client's current stressors, symptoms, and implementation of homework. Therapist provided psychoeducation on bipolar disorder and introduced the Bipolar Workbook to client. Therapist helped client identify things that would make her ivonne and depression worse and ways client cope better cope. Therapist gently challenged client on consistent boundary setting. Therapist discussed se lf-care and ways to cope with stress. Client Response:: Client responded well to session, open to meeting with therapist. Client reported she had outpatient therapy yesterday and my therapist said I was doing really well. Client reported she has not been suicidal since starting IOP and that her mood cycling frequency has decreased. Client shared she also feels happier and more productive. Acknowledged that I might be getting manic soon. Receptive to working on the Bipolar Workbook. Client able to identify things that would make her ivonne worse which included; not sleeping well, not taking her medications consistently, using substances, and spending money irresponsibly. Willing to create strategies to better manage her ivonne and prevent pitfalls. Client stated she can make sure she goes to bed at the same time each night and takes her medications. Client can also better manage money by limiting herself to eating out once a week and rolling her own cigarettes. Client and therapist discussed the benefits of saving money which included more financial freedom to do fun things this summer. Client shared she could make a list of the things she would like to do this summer to help motivate client to save money. Client admits that her boundary setting has slipped now that her mood is better. Client receptive to discussion of the consequences of not maintaining boundaries which included; feeling burnout, more anxiety, increased frustration, and lack of self-care. Client identified strategies to help her set and maintain boundaries in the future. Client reports plan to practice self-care tonight. Risks/Concerns:: Client denies any suicidal ideations, plan, or intent as of 04/09/19. Client denies having suicidal ideations since starting IOP. Future oriented and hopeful. Progress Toward Goals/Plan:: Client appears to be responding well to treatment and making progress towards treatment goals. Client continues to report mood cycling, but she shared instead of daily it's weekly. Client reports reduced isolation, implementation of self-care, and less depression. Client continues to struggle with ruminations, emotional dysregulation, poor boundaries, and negative thinking. Client responding well to creating a plan to better manage her bipolar symptoms. Will continue IOP tx to improve mood stability, promote healthy coping skills and boundaries, and reduce negative thinking. Time Stopped:: 13:05
--- NOTE | 2019-04-10 09:00 | BH.SGPN.GN ---
Behaviors/Verbalizations/Mental Status: [] Eye contact is good. Motor activity is appropriate. Appearance is casual. Speech is Appropriate. Mood is depressed. Affect is flat. Thoughts are linear and logical. No evidence of psychosis. Reviewed daily check in sheet and no reports of suicidal ideations or intent Client Response/Progress/Benefit: [] Pt participated at times during group however was not as engaged as she has been in the past. Emotion for today is exhausted. Daily tracker notes 02/15 for anxiety and panic. Shared that she is tired and lacks motivation. Shared that it has been difficulty for her complete tasks as she wants to simply stay in bed. Medication compliant. Looking forward to spending time with son this weekend. Short check-in. Limited progress. Tired and low energy however denies any significant emotional distress. Benefited from group support and encouragement. Will continue in IOP to prevent decompensation, prevent re-qadmission to psych, and to increase healthy coping skills. Narrative Note: []
--- NOTE | 2019-04-10 10:13 | BH.SGPN.GN ---
Behaviors/Verbalizations/Mental Status: []Client alert and oriented, casually dressed and groomed. Eye contact good. Motor activity appropriate. Speech within normal limits. Affect congruent, mood euthymic. Thoughts linear, logical, no signs of hallucinations or delusions. Client Response/Progress/Benefit: []Client was an active participant AEB providing input throughout session and listening attentively to peers. The group discussed the quote and how the emotion anger is not good or bad, but one can respond to anger in healthy or harmful ways. Client worked with the group to define anger and its causes, as well as the internal and external impacts of anger. Group identified potential consequences of unhealthy management of anger to include: losing relationships, guilt, decreased self-esteem, lashing out, and worsening mental health symptoms. Client identified underlying factors of her anger which included: loneliness, depression, hurt feelings, lack of trust, and anxiety. Client stated shutting down, sarcasm, miscommunicating, saying mean things, and feeling depressed as responses she has when feeling angry. Benefited from group by increasing awareness of the negative impacts of unmanaged anger and underlying factors that contribute to anger. Progress noted as client reports increased ability to manage emotions and better communicate boundaries with supports, though continues to struggle in this area. Will continue IOP tx to prevent decompensation, promote healthy change behaviors, and improve mood stability. Narrative Note: []
--- NOTE | 2019-04-10 11:15 | BH.SGPN.GN ---
Behaviors/Verbalizations/Mental Status: []Pt eye contact good, casually dressed, motor activity appropriate, speech normal rate and tone, mood dysthymic, constricted affect, thoughts linear and intact, no evidence of delusions or hallucinations. Client Response/Progress/Benefit: []Pt passive participant during discussion AEB pt providing limited input, but did show increased engagement in activity. Pt did well to challenge herself to complete the group activity and incorporate anger management/emotion regulation skills in order to do so. Pt worked with the group to identify the various barriers faced in the activity as well as skills used to successfully complete the task at hand without becoming dysregulated or uncontrollably angry. Group brainstormed with group healthy coping skills to help manage anger which included: mindfulness, crying, walking, exercise, talking to support and petting an animal. She appeared to benefit from brainstorming with the group potential strategies to manage anger in healthy ways. Pt identified plans to increase use of positive self-talk to help manage anger in a healthy manner. Recommended continued IOP to increase healthy coping, improve boundary setting, and prevent decompensation. Narrative Note: []
== END 2019-04-11 23:59 ==
LOC: BHIOP 09:00
PROVIDERS: PCP Internal Medicine; Referring Provider Psychiatry & Neurology Psychiatry; Visit Provider Psychiatry & Neurology Psychiatry
DX: F31.63 Bipolar disorder, current episode mixed, severe, without psychotic features (principal); F41.9 Anxiety disorder, unspecified; F43.10 Post-traumatic stress disorder, unspecified; Z79.899 Other long term (current) drug therapy; Z79.84 Long term (current) use of oral hypoglycemic drugs; E11.9 Type 2 diabetes mellitus without complications; Z91.5 Personal history of self-harm; Z62.810 Personal history of physical and sexual abuse in childhood; F12.90 Cannabis use, unspecified, uncomplicated; F10.11 Alcohol abuse, in remission; E66.9 Obesity, unspecified
CPT/HCPCS: H0035; 90832; 90834; 90853

== ENCOUNTER 2019-03-19 13:05 | Outpatient (RCR) | payer MEDICARE, MEDICAID, SELFPAY ==
[2018-12-08 10:38] VITALS: BMI 39.6
[2019-03-01 13:53] VITALS: BMI 37.8
== END 2019-04-11 23:59 ==
LOC: DC 13:05
PROVIDERS: PCP Internal Medicine; Visit Provider Internal Medicine
DX: Z71.3 Dietary counseling and surveillance (principal); E11.9 Type 2 diabetes mellitus without complications
CPT/HCPCS: 97803

== ENCOUNTER 2019-04-13 09:00 | Outpatient (RCR) | payer MEDICARE, MEDICAID, SELFPAY ==
[2019-03-24 14:11] VITALS: BMI 37.8
[2019-04-12 00:59] VITALS: BP 128/70; PULSE 84; RESP 16
[2019-04-12 01:00] VITALS: TEMP 36.6
--- NOTE | 2019-04-13 09:00 | BH.SGPN.GN ---
Behaviors/Verbalizations/Mental Status: [] Eye contact is good. Motor activity is appropriate. Appearance is casual. Speech is Appropriate. Mood is euthymic. Affect is full. Thoughts are linear and logical. No evidence of psychosis. Reviewed daily check in sheet and no reports of suicidal ideations or intent. Client Response/Progress/Benefit: [] Pt participated at times during the group discussion. Emotion for today is optimistic. Talked briefly about PTSD triggers this past weekend and some difficulty managing her thoughts and emotions. She did not elaborate much except to say you think that you are over something and then it comes right back. Noted mental health wins over the weekend which included boundary setting and improving communication skills with support. Progress noted. Benefited from group support, encouragement, and feedback. Will continue in IOP to prevent decompensation, maintain gains, and prevent re-admission to psych unit. Narrative Note: []
--- NOTE | 2019-04-13 10:20 | BH.SGPN.GN ---
Behaviors/Verbalizations/Mental Status: []Eye contact is good. Motor activity is appropriate. Appearance is casual. Speech is Appropriate. Mood is euthymic. Affect is flat. Thoughts are linear and logical. No evidence of psychosis. Client Response/Progress/Benefit: []Participated throughout group discussion, providing input and listening actively. Engaged during psychoeducation portion reviewing fixed mindset. Reported relating to examples of fixed mindset thoughts. Pt worked with group to identify how a fixed mindset can impact our mental health which included: decreased hope, giving up when faced with a setback, not asking for help, low self-esteem, and isolation/avoidance. Pt identified one fixed thought she has is, I?m never going to heal from my trauma so I?m done trying?I give up. She identified this fixed thought makes her doubt the effectiveness of therapy and want to give up. Recognized that this fixed thought results in decreased motivation and continues to maintain depression. Benefited from group by increasing awareness of how one's mindset impacts mental health. Pt to continue IOP level of care to increase utilization of healthy coping skills, challenge distorted thoughts, and prevent decompensation. Narrative Note: []
--- NOTE | 2019-04-13 11:25 | BH.SGPN.GN ---
Behaviors/Verbalizations/Mental Status: []Pt eye contact good, casually dressed, motor activity appropriate, speech normal rate and tone, mood dysthymic, constricted affect, thoughts linear and intact, no evidence of delusions or hallucinations. Client Response/Progress/Benefit: []Client engaged during discussion and listened attentively to peers. Client did well to apply cognitive restructuring to reframe previously identified fixed thoughts, transforming her fixed thought from previous group to a growth thought of ?It is going to take time to heal from past traumas, but I can do so by continuing to go to therapy.? Client shared her fixed thoughts have held her back from new opportunities and at times in life have maintained depressed symptoms. Client participated as the group brainstormed strategies to promote growth-mindset thinking. Benefitted from discussing benefits of growth mindset and brainstorming strategies for prompting growth-mindset. Will continue IOP tx to continue use of healthy coping, improve boundaries and prevent decompensation. Narrative Note: []
--- NOTE | 2019-04-15 09:05 | BH.SGPN.GN ---
Behaviors/Verbalizations/Mental Status: [] Eye contact is good. Motor activity is appropriate. Appearance is neat. Speech is Appropriate. Mood is euthymic. Affect is full. Notes hypomania. Thoughts are linear and logical. No evidence of psychosis. Reviewed daily check in sheet and no reports of suicidal ideations or intent. Client Response/Progress/Benefit: [] Pt participated at time during group discussion. Daily symptom tracker notes no distress most likely due to hypomania. Sahred that she completed self-care yesterday and discussed the things that she had done for herself. Insight that she is hypomanic stating that she has to be careful with her desire to spend excessively and make risky decisions. Notes that she did go shopping however only picked up items that she needed and then went to [employer] store. Reports that she is managing money effectively. Also notes sleeping well. Emotion for today is happy. Progress noted per pt report. Admits to enjoying hypomanic episodes. Benefited from feedback from peers. Will continue in IOP to monitor mood and provided support/guidance during hypomania. Narrative Note: []
--- NOTE | 2019-04-15 10:15 | BH.SGPN.GN ---
Behaviors/Verbalizations/Mental Status: []Pt eye contact good, casually dressed, motor activity appropriate, speech normal rate and tone, mood euthymic, congruent affect, thoughts linear and intact, no evidence of delusions or hallucinations. Client Response/Progress/Benefit: []Client responded well to session, engaged in activity and actively listening as well as providing input to discussion. Engaged in activity about facts and statistics of mental illness. Group connected with the mental health statistics, recognizing the prevalence of mental health. Group brainstormed strategies to combat social and perceived stigma which included: educating others, no longer using negative labels about mental illness, being open about mental health, and not using deflection like humor or joking to minimize symptoms. Client stated she believes she does well with trying to reduce mental health stigma by talking openly about her mental health with others. Client reported she will increase her involvement at the [facility] in an effort to reduce social and perceived mental health stigma. Appeared to benefit from increasing awareness of strategies to combat stigma. Will continue IOP tx to stabilize moods, improve boundary setting, and prevent decompensation. Narrative Note: []
--- NOTE | 2019-04-15 10:15 | BH.SGPN.GN ---
Behaviors/Verbalizations/Mental Status: [] Eye contact is good. Motor activity is appropriate. Appearance is casual. Speech is Appropriate. Mood is euthymic. Affect is full. Thoughts are linear and logical. No evidence of psychosis. Client Response/Progress/Benefit: [] Active participant in group discussions. Attentive during psyho-education. Worked with peers to provide input on definition of social stigma and discussed some common stigma associated with mental health which included; laziness, labeled as crazy, attention-seeking, lying, making excuses, they belong locked up, and they are unstable. Group also discussed the impact of this stigma which includes; making them feel less than others, causes more depression, leads to isolation, reinforces negative beliefs, and often they believe the labels placed on them. Group also identified ways that they reinforce mental health stigmas by; making jokes about it, not standing up for themselves, and by minimizes their symptoms. Benefited from group though increased insight and awareness on mental health stigma and its impact. Will continue in IOP to maintain safety, prevent decompensation, and improve daily functioning. Narrative Note: []
--- NOTE | 2019-04-15 12:23 | PCM.BH.PN_ITS ---
Progress Note Progress Note: History of Present Illness/Interim History: [] Patient is a 38-year-old female who is seen in follow-up at the [facility] IOP program. The patient feels that she is doing well in the program. She feels that she is having less rapid cycling of her moods now. She feels a little more tired lately. She denies any new problems and says that actually a few positive things have happened lately. Her ex- is being more cooperative about financial things. In addition she found out she is getting some financial compliance manager for her gas bill soon. She is having less panic attacks now with them occurring only about once a week now. She has been learning skills to control and abort these in the IOP program. She denies any suicidal ideation whatsoever now. She is needing the lorazepam not every day now. She is learning to set boundaries and learning self-care in the program. The patient says that she had the wrong dose of Zoloft she told us. She was only on 50 mg before and this dose was increased by her outpatient provider to 100 mg about 2 weeks ago. Current Psychiatric Medications: [] Abilify 30 mg p.o. nightly; Topamax 50 mg p.o. twice daily; Lamictal 100 mg p.o. daily (increased 2 weeks ago); lorazepam 1 mg p.o. as needed Mental Status Examination: [] Patient is a 38-year-old female who appears casually dressed and groomed with good hygiene. Her eye contact is fair to good today. She has no psychomotor agitation or retardation. Speech is n ormal rate and rhythm and fluent with no pressure. Mood is less depressed than before but a little down still. Affect is constricted. Thought process is goal-directed and organized. Thought content: No evidence of suicidal or homicidal ideation. No evidence of hallucinations or delusions. Judgment is limited but improving. Insight is fair. Impulsivity is high. Diagnoses: [] [place] I: [] Bipolar 1 disorder, most recent episode mixed severe, without psychosis, with rapid cycling; anxiety disorder NOS; PTSD [place] II: [] Cluster B traits [place] III: [] Diabetes mellitus [place] IV:[]] Primary support issues Plan: [] The patient will continue the IOP program at [facility] as the structure, support, education, group and individual therapy will hopefully prevent worsening of the patient's symptoms which might require rehospitalization. The risk, options, possible side effects and complications of the medications were discussed again with the patient and she understands and accepts these. The patient is again advised to use control if she becomes sexually active due to the risks of the medications. She felt safe during the interview and if at any time she does not feel safe she will tell us at the IOP program or go to the emergency room. No medication changes were made. She will continue to follow-up with her outpatient providers. She will continue to try to maintain sobriety.
--- NOTE | 2019-04-15 15:56 | BH.MDN_ITS ---
Multi-Disciplinary Note - Note 45-min Individual Time Started:: 12:25 Date: 04/15/19 Purpose of session/treatment goals addressed:: Purpose of session was to assess pt's current symptoms and stressors. Other topics included: reviewing homework from last session, discussing strategies to manage hypomanic state and setting boundaries. Eye Contact:: Good Motor Activity:: Appropriate Appearance:: Casual Speech:: Rapid Mood:: Euphoric Affect:: Bright Thoughts:: Linear, Logical, No evidence of hallucinations/delusions noted Staff Interventions:: Therapist used open ended questions to elicit pt's current symptoms and stressors. Therapist attempted to review homework from last individual session. Discussed barriers to completing homework. Therapist worked with pt to identify strategies to manage hypomanic mood state. Discussed importance of setting boundaries. Provided support by using active listening. Client Response:: Pt reported she did a good job of saying no to men last week. Pt shared she had many offers, but recognized it was a better idea to not engage with anymore men. Pt stated the osman she is with currently wants their relationship to be exclusive so she is attempting to respect that. Pt reported she has been feeling manic since Saturday, which is making it harder for her to say no to men. Pt shared since her mood has elevated she has been having the urge to spend money and have sex. Pt recognizes when she is hypomanic or manic she has hypersexuality. Pt stated to try and manage her impulsive spending she is breaking down her items she needs to buy to a couple of items everyday. Pt reported she is doing this so she doesn't overspend. Therapist discussed other ideas with pt to reduce impulsive spending like only taking stack with her to the store. Pt stated she is also struggling with setting boundaries with her grandma. Pt shared her grandma wants pt to bring her son to have dinner with her dad before he goes to group home. Pt reported her dad has been in and out of group home throughout her life. Pt reported she doesn't want to be around her dad, but doesn't want to upset her grandma. Through further discussion pt recognizes she doesn't have to give in to family especially when she knows it's not healthy for her mental health. Pt stated she will plan to set a boundary with grandma. Pt reported she will also work on continuing to set boundaries with men. Risks/Concerns:: Denies suicidal ideation, plan or intention to date. Pt reports being hypomanic which increases risk of impulsive decisions. Will continue to monitor pt's mood. Progress Toward Goals/Plan:: Progress noted with pt having awareness of hypomanic state and utilizing strategies to decrease impulsive spending. Pt also able to set boundaries in the last week with men. Progress could be impacted by pt not completing assigned homework and having difficulty seeing warning signs due to being in hypomanic state. Pt to continue IOP level of care to stabilize mood, increase healthy coping and prevent decompensation. Time Stopped:: 13:17
--- NOTE | 2019-04-20 09:00 | BH.SGPN.GN ---
Behaviors/Verbalizations/Mental Status: [] Eye contact is good. Motor activity is appropriate. Appearance is neat. Speech is Appropriate. Mood is euthymic. Affect is full. Thoughts are linear and logical. No evidence of psychosis. Reviewed daily check in sheet and no reports of suicidal ideations or intent. Client Response/Progress/Benefit: [] Pt participated at times during the group discussion. Emotion for today is thankful. Daily symptom tracker notes no distress. Shared that her weekend went well. Able to identify several mental health wins including exercise, spending time with her son, and visiting support. Completing responsibilities. Had mentioned being hypomanic last week which she is aware. Denies any trouble sleeping noting that she is sleeping 7-8 hours. No excessive spending. Progress noted per pt report. Benefited from group support, encouragement, and feedback. Will continue in IOP to prevent decompensation, provide support, and decrease re-admissions. Narrative Note: []
--- NOTE | 2019-04-20 10:05 | BH.SGPN.GN ---
Behaviors/Verbalizations/Mental Status: []Pt eye contact good, casually dressed, motor activity appropriate, speech normal rate and tone, mood euthymic, congruent affect, thoughts linear and intact, no evidence of delusions or hallucinations. Client Response/Progress/Benefit: []Pt engaged in session AEB pt taking notes throughout session, listening attentively to peers and providing input at times during discussion. Pt seemed to connect with group comments that we can control how we cope with stressors. Group identified unhealthy coping skills which included: substance use, avoidance, sleep, isolation, and suicidal behavior. Group worked together to identify potential barriers of using healthy coping which included: no motivation, apathy, comfort zone, habitual, learned behaviors and fear. Pt stated a potential consequence of using unhealthy coping is decompensation of mental health symptoms. Pt seemed to benefit from increased awareness of importance of increasing healthy coping skills and consequences of utilizing unhealthy coping skills. Pt to continue IOP level of care to stabilize moods, improve healthy boundaries and prevent decompensation. Narrative Note: []
--- NOTE | 2019-04-20 11:20 | BH.SGPN.GN ---
Behaviors/Verbalizations/Mental Status: []Client alert and oriented, casually dressed and groomed. Eye contact good. Motor activity appropriate. Speech within normal limits. Affect congruent, mood euthymic. Thoughts linear, logical, no signs of hallucinations or delusions. Client Response/Progress/Benefit: []Client responded well to session, taking notes and engaged during discussion, less input than usual however. Client appeared to connect with the activity from second group and listened as the group worked to identify benefits of having a strong foundation of internal and external coping skills. Client actively contributing as the group discussed the different categories of coping skills which included distraction, emotional release, grounding, self-love, and thought challenging. Client acknowledged the importance to having a variety of coping skills. Client created a coping skills ?menu? for the five categories of coping skills. Client expressed wanting to focus on improving more actively engaging in consistent application of though challenging skills this week. Client appeared to benefit from increasing her repertoire of healthy coping skills. Client progressing as shown by her report of improved mood management and self-care. Will continue IOP tx to prevent decompensation, improve mood stability, and promote healthy change behaviors. Narrative Note: []
--- NOTE | 2019-04-22 09:05 | BH.SGPN.GN ---
Behaviors/Verbalizations/Mental Status: [] Eye contact is good. Motor activity is appropriate. Appearance is casual. Speech is Appropriate. Mood is euthymic. Affect is full. Thoughts are linear and logical. No evidence of psychosis. Reviewed daily check in sheet and no reports of suicidal ideations or intent. Client Response/Progress/Benefit: [] Pt participated at times during the group discussion. She continues to report hypomania, however reports that she is sleeping well. Completed some self-care. Reports that she is behaving and notes that she is feeling mischievous. Pt notes progress however hypomanic. Benefited from group support, encouragement, and feedback. Will continue in IOP to monitor mood, encourage healthy choices during hypomania, and prevent readmission. Narrative Note: []
--- NOTE | 2019-04-22 11:49 | PCM.BH.PN_ITS ---
Progress Note Progress Note: The patient is a 38-year-old female with a history of bipolar disorder with rapid cycling who is seen in follow-up at the [facility] behavioral health IOP program. I last saw the patient 1 week ago and saw the patient today as the staff was mildly concerned that she might be a li ttle hypomanic. The patient told 1 of the staff members that she was feeling quite mischievous today. This was a little unusual for the patient so they requested that I see the patient. Yenifer states that she is feeling good. She is sleeping 6 to 7 hours a night. She does feel a little manic and is spending more money lately. She states, however, that she received some money that she was due and is spending that. She spent about $200 yesterday at a spa and other shopping. She states that she likes to have a self-care day every once in a while. She is seeing a new male and she says she gets very happy when she has a new sexual partner. She says that they are mostly together only for the sex. She states that she is hypersexual when she is hypomanic and she had a disagreement with this current partner and so the next day she had sex with a different man. I discussed with the patient that if her symptoms of hypomania get more severe and she feels that they are interfering with her quality of life in a negative way that we should consider adding another medication. The patient wishes to wait and see if this hypomania it becomes worse. She refuses to add any medication at this time. In addition the patient is not using control and a long discussion was had with her about the necessity of control. She understands and accepts this and agrees to use at least condoms to reduce the risk of sexually transmitted disease. She also is willing to go back on control pills. She denies any suicidal or homicidal ideation. She denies racing thoughts. She denies hallucinations or delusions. Current psych medications: Abilify 30 mg p.o. nightly (x2 and half years); Topamax 50 mg p.o. twice daily (for weight loss); Lamictal 100 mg or 150 mg p.o. daily; lorazepam as needed but not needing it often now. Objective: Patient is a 38-year-old female who appears casually dressed and groomed with good hygiene. She is pleasant and happy throughout the interview with lots of smiling. Eye contact is fair to good. Speech is normal rate and rhythm and fluent with no pressure. No rapid speech. Mood is mildly elevated over euthymic and affect is full and normal. Thought process is goal-directed and organized. Thought content: No evidence of homicidal or suicidal ideation, delusions or hallucinations. Concentration is good. Judgment is limited. Insight is somewhat poor. Impulsivity is high. Diagnosis; bipolar 1 disorder most recent episode mixed severe, without psychosis with rapid cycling; anxiety disorder NOS; PTSD Cluster B traits; diabetes mellitus; primary support issues Plan; the patient will continue the IOP program at [facility] as the structure, support, education, group and individual therapy will hopefully prevent worsening of the patient's symptoms which might require rehospitalization. The risk, options, possible side effects and complications of the medications were discussed with the patient and she understands and accepts these. The patient is again advised to use control when sexually active and the risks of not using control including and complications and sexually transmitted disease with those complications were discussed. The patient felt safe during the interview and if at any time she does not feel safe she will tell us at the IOP program or go to the emergency room. She refuses to add another medication at this time. She wishes to continue to follow-up with her outpatient provider and to see if her symptoms of hypomania worsened. She is again advised to maintain sobriety and not use any substances. Depakote would be a good option for the patient in terms of dealing with her rapid cycling. However until she gets back on control pills Depakote would give a high risk of teratogenic effects if she should become . Would recommend weaning the Abilify and crossing over to another antipsychotic possibly.
--- NOTE | 2019-04-22 14:57 | BH.MDN_ITS ---
Multi-Disciplinary Note - Note 30-min Individual Time Started:: 12:10 Date: 04/22/19 Purpose of session/treatment goals addressed:: Purpose of session was to assess pt's current symptoms and stressors. Other topics included: attempting to differentiate different mood states and setting boundaries. Eye Contact:: Good Motor Activity:: Appropriate Appearance:: Casual Speech:: Rapid Mood:: Euphoric Affect:: Bright Thoughts:: Linear, Logical, No evidence of hallucinations/delusions noted Staff Interventions:: Therapist used open ended questions to elicit pt's current symptoms and stressors. Therapist reviewed homework from last individual session of setting boundary and being mindful of spending. Therapist attempted to help pt differntiate between manic and hypomanic state. Therapist challenged pt's perspective that some of her recent decision making is fine. Attempted to help pt recognize increased risk taking and impulsive choices she has been making with elevated mood. Therapist reviewed importance of boundary setting and using skills to manage hypomanic mood state. Client Response:: Pt reported she is still feeling hypomanic, which pt stated her mood has been elevated for over a week. Pt stated she did follow through with setting boundary with her dad to not spend time with him before he goes to longterm. Pt reported on Saturday she was upset because the osman she has been seeing stood me up. Pt stated this upset her so she drank 7 alcoholic drinks that night. Pt reported she is disappointed with herself for drinking because she hadn't drank in 9 months. Pt stated on Saturday she was still mad at the osman she has been seeing so she drove to [place] to meet up with a male friend and had sex with him. Pt initially struggled with seeing that those decisions were very impulsive. Pt attempted to rationalize her decision making, but eventually did state perhaps she was a little impulsive. Pt struggled with differentiating between a hypomanic versus a manic mood state. Pt stated she believes she is still currently hypomanic. Pt reported when she is manic her hypersexuality is much worse compared to currently. Pt stated when manic she is usually having sex with 3-4 different partners a week, sometimes 2 different partners in one day. Pt reported she is not at that point with her hypersexuality right now. Pt stated she can note some current warning signs that her mood is moving towards ivonne as evidenced by pt not cooking meals at home, drinking alcohol, and not accomplishing her medical doctor. Pt reported she did meet with IOP psychiatrist today, but elected to not add any medications b alejandro doesn't want the medication to take my personality away. With help from therapist pt able to recognize that when she is manic she often gets hospitalized. Pt stated she is doing okay with not spending money impulsively, still using skills to spend money wisely. Pt noted she did go shopping over the weekend and got a massage, but went to discount stores to help keep spending to a minimum. Pt responded well to review of setting boundaries with other men that keep reaching out to her to have sex. Pt identified goals for the next week are to: stay at home more to decrease spending, wash dishes so she can cook at home, get her laundry done, and not engage in impulsive sexual relationships. Risks/Concerns:: Pt denies current suicidal ideation, plan or intention. Pt mood continues to elevate with increased impulsive behaviors compared to last week. Will continue to monitor mood. No signs of delusions or hallucinations. Progress Toward Goals/Plan:: Progress is decompensating as evidenced by pt's increased impulsive decisions, limited insight, and difficulty completing medical doctor. Pt to continue IOP level of care to stabilize moods, decrease impulsiveness, and prevent decompensation. Time Stopped:: 12:45
--- NOTE | 2019-04-23 11:14 | BH.SGPN.GN ---
Behaviors/Verbalizations/Mental Status: []Eye contact is good. Motor activity is appropriate. Appearance is casual. Speech is Appropriate. Mood is euthymic. Affect is constricted. Thoughts are linear and logical. No evidence of psychosis. Client Response/Progress/Benefit: []Pt did well to actively participate in group activity, as well as provided input during discussion. Pt worked with group members to identify connections between activity and strategies for overcoming barriers to making mental health changes. Pt noted that lack of self-awareness and unhealthy learned behaviors can be a barrier to ?turning over a new leaf? in her personal life. Pt did well to identify a specific change she would like to make for her mental health, barriers to making that change, and a SMART goal to reach that change. Shared she would like to work on improving ability to set firm boundaries with unhealthy or toxic people. Discussed that this change would help to increase self-worth and ability to make progress with mental health. Pt benefited from working with group to identify strategies to overcome barriers to change and create a plan for implementing one small change promoting personal growth. Pt recommended to continue IOP tx to increase effective communication with supports, improve ability to cope with overwhelming emotions, and prevent decompensation. Narrative Note: []
--- NOTE | 2019-04-24 09:00 | BH.SGPN.GN ---
Behaviors/Verbalizations/Mental Status: [] Eye contact is good. Motor activity is appropriate. Appearance is casual. Speech is Appropriate. Mood is euthymic. Affect is full. Thoughts are linear and logical. No evidence of psychosis. Reviewed daily check in sheet and no reports of suicidal ideations or intent. Client Response/Progress/Benefit: [] Pt participated at times during the group discussion on vulnerability and recent anxiety/fears related to Coronavirus. Emotion for today is tried. Believes that she is coming down from her ivonne noting that she feel s more relaxed and less impulsive. Not as great a desire to shop or spread money. Reports that he ivonne lasted about a week which she reports is typical. Also insight that getting an influx of money at the beginning of the month related to SSDI may trigger her. Continues to sleep well. Talked about her plans this weekend and in the near future as her son will be off school for 4 weeks due to Coronavirus precautions. Progress noted per pt report. Will continue in IOP to prevent decompensating, stabilize mood, and prevent readmission. Narrative Note: []
--- NOTE | 2019-04-24 10:16 | BH.SGPN.GN ---
Behaviors/Verbalizations/Mental Status: []Client alert and oriented, casually dressed and groomed. Eye contact good. Motor activity appropriate. Speech within normal limits. Affect congruent, mood euthymic. Thoughts linear, logical, no signs of hallucinations or delusions. Client Response/Progress/Benefit: []Client responded well to session, attentive and engaged throughout. Participated in group discussion to define conflict and identify differences between internal and external conflict. Client shared that not wanting to hurt or disappoint other people has led to avoiding conflicts in the past. Group reported the benefits of addressing conflict included increased self-confidence, increased trust in relationships, having needs be met, and preventing further conflict from arising. Group identified and discussed consequences of not addressing conflict in healthy ways which included: decreased self-esteem, damaged relationships, increased mental health symptoms, and additional stressors developing as a result. Benefited as client was able to identify current conflict style and how it impacts her mental health. Noted she often is avoiding or accommodating and that this has negatively impacted self-esteem in past. Progress noted as shown by client?s report of improved insight, though she continues to struggle with emotion regulation and boundaries. Will continue IOP tx to promote insight and application of healthy skills, reduce mental health sx severity, and further improve daily functioning. Narrative Note: []
--- NOTE | 2019-04-24 11:20 | BH.SGPN.GN ---
Behaviors/Verbalizations/Mental Status: []Client alert and oriented, casually dressed and groomed. Eye contact good. Motor activity appropriate. Speech within normal limits. Affect congruent, mood euthymic. Thoughts linear, logical, no signs of hallucinations or delusions. Client Response/Progress/Benefit: [] Client passive participant AEB client not providing any input during group discussion, however appeared to listen attentively to peers. Listened to ongoing discussion of the different conflict resolution styles, drawbacks, and appropriate times of use. Client stated she most often avoids or accommodates when faced with conflict. Client stated she used to avoid conflict more frequently, but now accommodates more often. Client reported this type of conflict resolution style negatively impacts her mental health as it causes client to have difficulty setting and maintaining boundaries. Client stated she has been putting forth more effort to set boundaries, but still struggles to maintain boundary when the other person doesn't respect boundary. Client appeared to benefit from increasing awareness of her personal conflict resolution style and from learning ways to increase healthy conflict resolution. Will continue tx to increase consistent use of healthy coping, stabilize moods, and prevent decompensation. Narrative Note: []
--- NOTE | 2019-04-28 09:06 | BH.SGPN.GN ---
Behaviors/Verbalizations/Mental Status: []Eye contact is good. Motor activity is appropriate. Appearance is casual. Speech is Appropriate. Mood is euthymic. Affect is congruent. Thoughts are linear and logical. No evidence of psychosis. Reviewed daily check in sheet and no reports of suicidal ideations or intent. Client Response/Progress/Benefit: []Pt was an active participant in group discussion. Described current mood as ?relaxed? and noted this is due to having a positive weekend with her supports. Pt identified current mental health ?wins? as challenging herself to use calming skills when her friend?s son became upset while visiting. Shared that being able to remain calm made her feel empowered and proud of herself. Described using positive self-talk to do so. Noted additional win as continuing to use skills learned so far to prepare for extended time at home with her son. Shared stocking up on games and activities to help keep them both busy and regulated. Shared current stressor as worrying she will begin to experience increased depression now that she has cycled out of a manic period. Able to identify skills and strategies for coping with depression and reducing intensity of sx. Progress noted in application of skills, though pt continues to struggle with boundaries and emotion regulation. Benefited from group support, encouragement, and feedback. Will continue in IOP to prevent decompensation, stabilize mood, and improve daily functioning. Narrative Note: []
--- NOTE | 2019-04-28 10:10 | BH.SGPN.GN ---
Behaviors/Verbalizations/Mental Status: []Client alert and oriented, casually dressed and groomed. Eye contact good. Motor activity appropriate. Speech within normal limits. Affect congruent, mood euthymic. Thoughts linear, logical, no signs of hallucinations or delusions. Client Response/Progress/Benefit: []Client responded well to session, participating in group discussion and activity. Attentive during psychoeducation and commenting on the quote. Client provided a personal example of a time she made a change even though it was a difficult decision. Group identified the benefits of change which included: personal growth, better relationships, improved mental health, increased confidence, and better coping skills. Client stated making changes can mean improving boundaries and help a person learn from experiences. Worked with the group to identify barriers to change, which included: growing up with unhealthy coping skills, fear of embarrassment, fear of the unknown, fear of hurting others, comfort, and what if thinking. Client participated along with group in activity where they identified and discussed the emotions related to change. Client was attentive during psychoeducation on the change process. Benefited from increased awareness and understanding of emotions, benefits, and barriers related to change. Will continue IOP tx to increase mood stability, reduce unhealthy coping skills, and improve boundary setting. Narrative Note: []
--- NOTE | 2019-04-28 11:17 | BH.SGPN.GN ---
Behaviors/Verbalizations/Mental Status: []Client alert and oriented, casually dressed and groomed. Eye contact good. Motor activity appropriate. Speech within normal limits. Affect congruent, mood euthymic. Thoughts linear, logical, no signs of hallucinations or delusions. Client Response/Progress/Benefit: []Client was an active participant AEB client providing input during discussion and listening to peers attentively. Client engaged during discussion on weighing the pros and cons associated with change and benefited from learning to do so through use of decisional balance sheet. Identified she wants to set healthy boundaries as the change she wants to make to improve her mental health. Client able to identify the pros of setting boundaries which included: improved relationships, increase self-respect, increased self-confidence. Identified cons of not setting healthy boundaries include: continues to be taken advantage of by others, decreased self-confidence, reinforces negative thoughts about self, and stays stuck. Client stated she has been trying to work on setting boundaries, but recognizes she struggles with consistent follow through. Appeared to benefit from gaining awareness of the pros and cons associated with changing her coping skills. Recommended continued IOP tx to stabilize moods, increase consistent use of healthy coping and prevent decompensation. Narrative Note: []
--- NOTE | 2019-04-28 14:10 | BH.MDN_ITS ---
Multi-Disciplinary Note - Note 45-min Individual Time Started:: 12:15 Date: 04/28/19 Purpose of session/treatment goals addressed:: Purpose of session was to assess client's current symptoms and stressors. Another goal was to increase insight on how client?s current behaviors impact progress. Other topics included: reviewing healthy coping skills and setting boundaries. Eye Contact:: Good Motor Activity:: Appropriate Appearance:: Neat Speech:: Appropriate Mood:: Euthymic Affect:: Congruent Thoughts:: Linear, Logical, No evidence of hallucinations/delusions noted Staff Interventions:: Therapist used open ended questions to elicit client?s current symptoms and stressors. Therapist reviewed client?s homework and gathered updates over the past two weeks. Therapist attempted to build discrepancies between client?s current behaviors and her desired goals. Therapist attempted to get client to dispose of alcohol in her home. Therapist reviewed importance of boundary setting and using skills to manage hypomanic mood state and promote self-love. Therapist gave client homework to journal about what boundaries that support self-love look like. Client Response:: Client responded well to session, open to meeting with therap ist. Client had been meeting with another therapist at [facility] while this therapist was out of the office. Client and therapist discussed updates from the last two weeks and client shared I might have been a little hypomanic. Client disclosed that she had been more impulsive and she experienced hypersexuality. Client stated this week her mood is less hypomanic and she is not having sex with multiple partners. Client recognizes that her behavior over the last two weeks impacts client progress and prevents client from working on self-love. Client shared she wants to work on setting firmer boundaries with the osman she has been seeing consistently. Client reported she has a hard time setting boundaries with him, despite knowing he disrespects her and blows me off. Client and therapist discussed client's goals of self-love and how not setting boundaries keeps client from working on self-love. Client reported she plans to communicate her boundaries more assertively and make it clear that she will not continue to be taken for granted. Client reminded that she will need to continue to reinforce this boundary. Client stated it is hard for her to maintain boundaries because people make me feel guilty. Discussed ways to combat this guilt and maintain boundaries. Client reported she has never been not in a relationship, so being by herself if scary for her. Client also recognizes that being in relationships makes her feel less bad about her ex- having a partner. Client acknowledges that working on self-love might mean being without a romantic partner. Client reported she wants to improve her self-worth and identify her values. Receptive to homework on writing in her journal about boundary setting. Plans to talk with her friend tomorrow about boundaries. Risks/Concerns:: Client denies current suicidal ideation, plan or intention. Client self-reports less impulsive behaviors this week, but still reports heightened mood. Will continue to monitor mood. No signs of delusions or hallucinations. Progress Toward Goals/Plan:: Client had shown decompensation in symptoms last week due to increased impulsive behaviors. Today, client reported improved mood stability and less impulsivity, although she is still showing some symptoms of hypomania. Progress noted as shown by client?s report of planning to set boundaries with a man in her life and plans to clean her house tonight. Client recognizes that progress could continue to be impacted if she does not start setting firmer boundaries. Client to continue IOP level of care to stabilize mood, increase healthy coping and prevent decompensation. Time Stopped:: 12:56
--- NOTE | 2019-04-30 09:09 | BH.SGPN.GN ---
Behaviors/Verbalizations/Mental Status: []Client alert and oriented, casual dress, hygiene tended to. Eye contact good. Motor activity appropriate. Speech within normal limits. Affect congruent, mood euthymic. Thoughts linear, logical, no signs of hallucinations or delusions. Reviewed client?s symptom tracker, no signs of suicidal ideation, plan, or intent as of today. Client Response/Progress/Benefit: []Pt responded well to session AEB pt listening to others and sharing thoughts and feelings openly with group. Pt stated a mental health positive is she was able to stay at home for majority of day instead of going to various stores. Pt stated it's been difficult to social distance herself, but has been trying to find other things to do while at home. Pt reported additional positive was doing her dishes yesterday and cooking a meal. Pt identified stressor is having to be socially distant from others due to coronovirus pandemic. Pt admitted she has visited a friend recently because doesn't like to be stuck at home. Progress noted with pt completing vegetable grower and cooking a meal. Pt to continue IOP to increase consistent boundary setting, stabilize moods, and prevent decompensation. Narrative Note: []
--- NOTE | 2019-04-30 10:09 | BH.SGPN.GN ---
Behaviors/Verbalizations/Mental Status: []Client alert and oriented, casually dressed and groomed. Eye contact good. Motor activity appropriate. Speech within normal limits. Affect congruent and bright, mood euthymic. Thoughts linear, logical, no signs of hallucinations or delusions. Client Response/Progress/Benefit: []Client responded well to session, attentive throughout. Client participated in discussion of things that can keep people feeling trapped or stuck in life including; isolation, lack of trust, pushing others away, focusing on negatives/defeatist attitude, unhealthy relationships, and negative self-talk. Group discussed the connection between thoughts, emotions, and behaviors as well as how negative thinking can keep a person stuck. Client provided an example regarding poor boundaries impacting thoughts and emotions. She was engaged during psychoeducation on maintenance cycles. Reported she has struggled to get out of toxic maintenance cycles in the past, especially related to toxic relationships, ivonne, and depression. Client able to identify negative thoughts that have kept client feeling trapped. Client shared negative thought which was ?I?m always going to feel this pain? and ?I will never trust anyone, including myself?. Appeared to benefit from gaining awareness of how negative thoughts reinforce mental health symptoms and keep people stuck. Progress noted in client?s report of overall improved mood and decreased self-deprecation, improving on emotion regulation skills and boundary setting. Will continue IOP to promote mood stability and boundary setting, and reinforce healthy coping skills. Narrative Note: []
--- NOTE | 2019-04-30 11:13 | BH.SGPN.GN ---
Behaviors/Verbalizations/Mental Status: []Client alert and oriented, neatly dressed and groomed. Eye contact good. Motor activity appropriate. Speech within normal limits. Affect constricted, mood euthymic. Thoughts linear, logical, no signs of hallucinations or delusions. Client Response/Progress/Benefit: []Client responded well to session, contributing to discussion and occasionally providing feedback. Client appeared to connect with maintenance cycles and recognized how negative thinking can keep a person stuck. Client identified a negative thought that has kept her stuck. Client's thought to challenge was I can't overcome trauma and I'll never be able to trust myself or others again. Client recognized that this thought has many distortions in it, including all or nothing thinking and jumping to conclusions. Client able to connect how this thought maintains anxious and depressive cycles. Client reported when she thinks this way she becomes impulsive, more depressed, and uses unhealthy coping skills. Client able to reframe the thought by saying with time and therapy I can trust myself and have self-love. Client shared this thought would improve her mental health because it would promote self-compassion and healthy boundaries. Client appeared to benefit from practicing challenging negative thinking. Client to continue IOP tx to promote mood stability, reduce impulsive behaviors, and improve boundary setting. Narrative Note: []
--- NOTE | 2019-05-01 09:10 | BH.SGPN.GN ---
Behaviors/Verbalizations/Mental Status: []Eye contact is good. Motor activity is appropriate. Appearance is casual. Speech is Appropriate. Mood is euthymic. Affect is congruent. Thoughts are linear and logical. No evidence of psychosis. Reviewed daily check in sheet and no reports of suicidal ideations or intent. Client Response/Progress/Benefit: []Pt was receptive of session, engaged throughout. Described current mood as ?calm? and noted this is due to improved mood and feeling less manic. Shared current mental health win as taking time for self-care yesterday and using opposite action to complete traditional maori health practitioner. Noted additional win as being able to spend time with her mom and regulate her emotions while doing so. Stressor noted as ongoing difficulties in setting boundaries. Appeared to benefit from the support of the group and focusing on that which is within his control. Benefited from group support, encouragement, and feedback. Will continue in IOP to prevent decompensation, stabilize mood, and improve daily functioning. Narrative Note: []
--- NOTE | 2019-05-01 10:14 | BH.SGPN.GN ---
Behaviors/Verbalizations/Mental Status: []Eye contact is good. Motor activity is appropriate. Appearance is neat. Speech is Appropriate. Mood is euthymic. Affect is congruent. Thoughts are linear and logical. No evidence of psychosis. Client Response/Progress/Benefit: []Client was an active participant AEB client providing input during discussion, engaged in activity and listened attentively to others. Client reported she could connect with the quote and shared she used to overwork herself as a way to cope, but then she hit rock bottom and realized she could not do that any longer. Worked with peers to identify and define pitfalls in mental health. Attentive on psycho-education on the impact of how one margarita with or manages pitfalls in regards to mental health. Group worked together to identify what keeps us stuck or vulnerable to pitfalls which included; negative thinking, feeling like I don't deserve change, learned behaviors, comfort, fear of failure, lack of insight, and not asking for help. Client reported putting other people's needs before her needs has been a pitfall for her before. Benefited from increased awareness on the impact that pitfalls can have on mental health. Will continue IOP tx to promote mood stability, improve healthy boundaries, and reduce impulsive choices. Narrative Note: []
--- NOTE | 2019-05-01 11:15 | BH.SGPN.GN ---
Behaviors/Verbalizations/Mental Status: []Client alert and oriented, casually dressed and groomed. Eye contact good. Motor activity appropriate. Speech within normal limits. Affect congruent, mood euthymic. Thoughts linear, logical, no signs of hallucinations or delusions. Client Response/Progress/Benefit: []Client receptive of session, engaged throughout AEB client participating in discussion and listening to others. Processed activity with group and connected it to overcoming personal pitfalls in life. Client completed a worksheet where she identified personal pitfalls impacting mental health progress. Identified pitfalls as: difficulty setting boundaries, putting other needs ahead of her own, impulsiveness, over shopping, and difficulty asking for help. Attentive and contributing during psychoeducation on strategies to overcome pitfalls. Client stated she will work on the pitfall of putting others needs ahead of her own. Client reported she will focus on setting boundaries and engaging in self-care. Benefited from identifying personal pitfalls and strategies to overcome these pitfalls. Client continuing to struggle with consistently setting boundaries which leads to client not getting needs met. Client to continue IOP level of care to increase consistent follow through of skills, stabilize moods, and prevent decompensation. Narrative Note: []
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
== END 2019-05-04 15:00 | disposition short-term general hospital (02) ==
LOC: BHIOP 09:00
PROVIDERS: PCP Internal Medicine; Referring Provider Psychiatry & Neurology Psychiatry; Visit Provider Psychiatry & Neurology Psychiatry
DX: F31.63 Bipolar disorder, current episode mixed, severe, without psychotic features (principal); F41.9 Anxiety disorder, unspecified; F43.10 Post-traumatic stress disorder, unspecified; Z79.899 Other long term (current) drug therapy; Z79.84 Long term (current) use of oral hypoglycemic drugs; E11.9 Type 2 diabetes mellitus without complications; Z91.5 Personal history of self-harm; Z62.810 Personal history of physical and sexual abuse in childhood; F12.90 Cannabis use, unspecified, uncomplicated; F10.11 Alcohol abuse, in remission; E66.9 Obesity, unspecified
CPT/HCPCS: 99214; H0035; 90832; 90834; 90853

== ENCOUNTER 2019-04-21 10:30 | Outpatient (RCR) | payer MEDICARE, MEDICAID, SELFPAY ==
[2019-03-24 14:11] VITALS: BMI 37.8
== END 2019-04-21 23:59 | disposition home or self-care (01) ==
LOC: DC 10:30
PROVIDERS: PCP Internal Medicine; Visit Provider Internal Medicine
DX: Z71.3 Dietary counseling and surveillance (principal); E11.9 Type 2 diabetes mellitus without complications
CPT/HCPCS: 97803

== ENCOUNTER 2019-05-04 16:24 | Emergency (ER) | payer MEDICARE, MEDICAID, SELFPAY ==
[2019-03-24 14:11] VITALS: BMI 37.8
[2019-05-04] VITALS (7 sets, daily range): BP systolic 99–158; BP diastolic 66–97; PULSE 64–118; RESP 16–22; TEMP 37; O2SAT 92–98; BMI 38.9
--- NOTE | 2019-05-04 16:32 | EKG12_ITS ---
Test Reason : CP Blood Pressure : / mmHG Vent. Rate : 106 BPM Atrial Rate : 106 BPM P-R Int : 152 ms QRS Dur : 086 ms QT Int : 332 ms P-R-T Axes : 054 013 040 degrees QTc Int : 441 ms Sinus tachycardia Otherwise normal ECG Confirmed by HALLE SOLORZANO MD ([id number]), newspaper copy editor KORTNEY SAUCEDA ([id number] on 05/07/2019 1:07:37 PM Referred By: LAMAR Confirmed By:HALLE SOLORZANO MD
[2019-05-04 17:10] LABS: Absolute Lymphocyte Count 2.99 X10^3/uL (0.83-4.51); Absolute Neutrophil Count 8.5 X10^3/uL (2.0-7.7); Basophil# 0.06 X10^3/uL; Basophil% 0.5 % (0-1); Eosinophil# 0.38 X10^3/uL; Hematocrit 43.6 % (37-47); Hemoglobin 14.9 g/dL (12.0-15.0); Lymphocyte # 2.99 X10^3/ul (4.0); Lymphocyte % 23.7 % (19-41); Mean Corp Hgb Conc 34.2 g/dL (32-36); Mean Corpuscular Hgb 31.2 pg (27.0-32.0); Mean Corpuscular Volume 91.2 fL (81-99); Mean Platelet Vol. 10.3 fl (6.2-12.0); Monocyte# 0.65 X10^3/uL; Monocyte% 5.1 % (0-10); NRBC Flagged by Analyzer 0 % (0-5); Neutrophil # 8.49 X10^3/uL (2.7-7.7); Neutrophil % 67.1 % (47-70); Platelet Count 218 K/mm3 (150-450); RBC Distribution Width SD 43.3 fl (35.1-43.9); Red Blood Count 4.78 M/mm3 (4.2-5.4); White Blood Count 12.6 K/mm3 (4.4-11.0)
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
[2019-05-04 17:42] LABS: Amphetamine Urine VISTA NEGATIVE (<1000 ng/mL); Barbiturate Urine VISTA NEGATIVE (< 200 ng/mL); Benzodiazepine Urine VISTA NEGATIVE (< 200 ng/mL); Cocaine Urine VISTA NEGATIVE (< 300 ng/mL); Ecstacy Urine VISTA NEGATIVE (< 500 ng/mL); Methadone Urine VISTA NEGATIVE (< 300 ng/mL); PCP Urine VISTA NEGATIVE (< 25 ng/mL); THC Urine VISTA NEGATIVE (< 50 ng/mL); Vista UDS pH Range 6
[2019-05-04 18:00] LABS: ALB/GLOB Ratio 0.9 RATIO (0.9-2.4); AST(SGOT) 12 U/L (15-37); Alanine Aminotransfer ALT/SGPT 23 U/L (13-56); Albumin, Serum 3.7 g/dL (3.2-5.0); Alkaline Phosphatase 62 U/L (45-117); Anion Gap 5 (5-15); BUN 11 mg/dL (7-18); Calcium,Total 8.9 mg/dL (8.5-10.1); Chloride 111 mmol/L (98-107); EST Glomerular Filtration Rate 59 mL/min (>60); Est Glom Filt Rate - Afr Amer 72 mL/min (>60); Estimated Creatinine Clearance 60.47 ml/min; Glucose 149 mg/dL (74-106); Potassium 3.4 mmol/L (3.5-5.1); Protein, Total 7.7 g/dL (6.4-8.2); Sodium Level 140 mmol/L (136-145)
--- NOTE | 2019-05-04 18:00 | ED.VISSUMM ---
- ER Visit Summary Date of Service: 05/04/19 Chief Complaint: Ativan overdose History of Present Illness: The patient is a 38 F presenting after Ativan overdose. She states 24 hours ago she took 31 mg Ativan tablets. She states she was drinking vodka at the time. She states that she just wanted to go to sleep. She denies that this was a suicide attempt. She does state that she was aware that this may be dangerous. She has a flat affect and poor eye contact. Her sister brought her to the ED. Physical Examination: Vitals are stable. Patient is afebrile. Alert no acute distress. HEENT exam is unremarkable. Neck is supple. Lungs are clear and equal bilaterally. Heart is regular rate and rhythm. Abdomen is soft nontender nondistended. Extremities are unremarkable. Skin is warm and dry. No focal neurologic deficit. Flat affect, poor eye contact Remainder of exam is unremarkable. Emergency Department Course and Treatment: EKG sinus tachycardia rate of 106. CBC shows white count 12.6. Chemistries unremarkable other than potassium 3.4, glucose 149, creatinine 1.10. hCG negative. Urine tox is negative. Alcohol 5.0. Salicylate 3.6. Tylenol level less than 2. Patient took these medications 24 hours ago. She is medically cleared in the emergency department. Patient was evaluated by social work in the ED. Disposition: Per social work Impression: Ativan overdose This note was generated with Firebase dictation software. It may contain incorrect words, spelling, and punctuation that were not noted in review of the chart prior to signing ED Disposition - Plan for ED Patient: Referrals: Ashley Varela MD [Primary Care Provider] -
[2019-05-04 18:10] LABS: Internal QC Validated? YES +Cl - CLEAR BKGD; Pregnancy, Serum, hCG Quali. NEGATIVE Negative
[2019-05-04 18:23] LABS: Acetaminophen (Tylenol) Level < 2.0 ug/mL (10.0-30.0); Salicylate 3.6 mg/dL (2.8-20.0)
--- NOTE | 2019-05-04 19:50 | CM.ED ---
SOCIAL WORK REFERRAL FAXED AND CALLED TO [facility]. AWAITING ACCEPTANCE. Price SPANGLER, REGULATORY ATTORNEY, TIRE ROOM SUPERVISOR.
--- NOTE | 2019-05-04 21:10 | CM.ED ---
SOCIAL WORK PATIENT ACCEPTED TO [facility] BY DR. ISRAEL TO THE [facility]. NURSE TO CALL REPORT TO . [facility] FAXED PER REQUEST. Price SPANGLER MSW, CHIEF ENTERPRISE ARCHITECT.
--- NOTE | 2019-05-04 23:15 | ED.RN ---
reports called to tonya at [facility] unit.
== END 2019-05-04 23:16 ==
LOC: ED 16:56
PROVIDERS: Emergency Provider Emergency Medicine; PCP Internal Medicine
DX: T42.4X1A Poisoning by benzodiazepines, accidental (unintentional), initial encounter (principal); E11.9 Type 2 diabetes mellitus without complications; F41.9 Anxiety disorder, unspecified; F31.9 Bipolar disorder, unspecified; F17.220 Nicotine dependence, chewing tobacco, uncomplicated
CPT/HCPCS: 80053; 80307; 80320; 80329; 84703; 85025; 93005; 99283; A4216; G0480

== ENCOUNTER 2019-05-15 09:00 | Outpatient (RCR) | payer MEDICARE, MEDICAID, SELFPAY ==
[2019-05-04 16:25] VITALS: BMI 38.9
--- NOTE | 2019-05-15 10:13 | BH.SGPN.GN ---
Behaviors/Verbalizations/Mental Status: []Client alert and oriented, neatly dressed and groomed. Eye contact good. Motor activity appropriate. Speech within normal limits. Affect constricted, mood dysthymic. Thoughts linear, logical, no signs of hallucinations or delusions. Client Response/Progress/Benefit: []Client receptive of session, attentive in discussion and activity. Client discussed the quote and provided input on how not managing one?s emotions in healthy ways can cause more issues and hurt oneself. Discussed personal and interpersonal consequences of ?stuffing? emotions as well as having outbursts. Client shared that she has ?stuffed? her emotions and then later overreacted which caused more problems. Client helped group identify barriers that impact one?s ability to communicate when emotions are high. These barriers included; fear, embarrassment, racing thoughts, making assumptions, not being able to articulate, and second-guessing. Client also reported negative self-talk and feeling like a burden have kept her from communicating effectively. Attentive during psychoeducation on steps to improve emotional regulation. Client participated in the activity and did well to manage emotions throughout. Client appeared to benefit from increasing awareness of how emotions can impact communication and practicing in the moment coping skills. Client returned to IOP tx following discharge from [place]. Client will continue IOP tx to prevent decompensation of mood symptoms, maintain safety, and improve daily functioning. Narrative Note: []
--- NOTE | 2019-05-15 11:18 | BH.SGPN.GN ---
Behaviors/Verbalizations/Mental Status: []Client alert and oriented, neatly dressed and groomed. Eye contact good. Motor activity appropriate. Speech within normal limits. Affect constricted, mood dysthymic. Thoughts linear, logical, no signs of hallucinations or delusions. Client Response/Progress/Benefit: []Client engaged in session AEB client listening attentively to peer and providing input at times during session. Attentive during psychoeducation on 4 zones of regulation. Client able to identify how she feels in each zone as well as how she behaves in each zone. Client able to recognize that having awareness of her emotions in each zone will give client direction on what coping skills to use. Group identified coping skills can use to support self in each zone which included: journaling, opposite action, exercising, listening to music, deep breathing, progressive muscle relaxation, and reaching out to supports. Client shared ?I think you should reach out to your supports in all zones.? Client stated belief that she is in the blue zone today because client feels tired, low, and bored. Client reported she needs to take a nap, but that she knows she will also benefit from being active. Client shared she plans to go from a walk tonight, eat a good dinner, and watch a movie to improve her mood. Benefited from increased education on zones of regulation or stages of alertness for emotions and healthy coping skills to use for each zone. Will continue IOP tx to maintain safety, prevent decompensation, and improve mood stability. Narrative Note: []
--- NOTE | 2019-05-15 14:34 | BH.COMM ---
Communication Note - Communication with Client Communication Note: completed initial intake paperwork with client. Completed CSSRS. Denies any active suicidal ideations, plan, or intent. Client reports no suicidal ideations since her discharge from [place] on 05/12/19. History of two suicide attempts with her most recent being on 05/05/19. Client had taken 30mgs of Ativan and then drank alcohol. Client called her sister and her sister noticed client slurring words and not being coherent and took client to the ER. Client reported at the time she ?just wanted to go to sleep? and was feeling sad about multiple stressors. Reports in the past month occasional suicidal thoughts with methods however no specific plan or intent. Client reported both of her suicide attempts ?were on impulse.? Client no longer is taking Ativan and denies having alcohol in her home. Denies other access to weapons. Client is future oriented and identifies her sister and her son as protective factors. Willing to plan for safety. Client is a high risk for suicide based on her history and recent hospitalization. Client is not an immediate risk to herself or others as evidenced by her report of no current suicidal ideations and ability to maintain safety. Will continue to monitor client?s risk levels throughout IOP.
--- NOTE | 2019-05-15 14:34 | BH.MDN ---
Multi-Disciplinary Note - Note 30-min Individual Time Started:: 09:25 Date: 05/15/19 Purpose of session/treatment goals addressed:: The purpose of this session was to address client's current symptoms, stressors, treatment goals, and triggers. Another goal was to review expectations for IOP and boundaries. Other topics included safety planning. Eye Contact:: Good Motor Activity:: Appropriate Appearance:: Casual Speech:: Appropriate Mood:: Dysthymic Affect:: Constricted Thoughts:: Linear, Logical, No evidence of hallucinations/delusions noted Staff Interventions:: Therapist used active listening and open-ended questions to explore client's current stressors, symptoms, history, and treatment goals. Therapist used strengths perspective to build rapport and help client identify personal resilience factors. Therapist provided psychoeducation on addiction, maintenance cycles, and cognitive distortions. Therapist gave client an addiction 101 video to watch for homework. Client Response:: Client responded well to session, open to meeting with therapist. Client reported she understands now that she has to set firmer boundaries with herself. Client shared I think I had to hit a rock bottom with drinking for client to realize how it was negatively impacting her. Client stated she now sees that she cannot just casually drink. Client reports belief she has an addictive personality. Receptive to psychoeducation on how addiction impacts the brain and willing to watch the addiciton [address] George. Client discussed her goals for IOP as well as barriers that hindered progress last time client was in IOP. Client identified her goals to include better manage her moods, set healthier boundaries, and use healthier coping skills. Per her report, client's barriers last time were not setting boundaries, not being consistent with coping skills, and thinking I could just do whatever. Client willing to complete a safety plan for homework. Client and therapist discussed healthy activities client could do this weekend which included; art, watch a movie, hike, journal, manicure and pedicure, take dog for a walk, and take a country drive. Client stated she was able to be somewhat productive at home this week which helped client cope with her depression. Client acknowledges coping skills that will help break depressive maintenance cycles such as opposite action and goal setting. Risks/Concerns:: Client denies any current suicidal ideations, plan, or intent as of 05/15/19. Client denies have any SI since her discharge from [place] on 05/12/19. Protective factors include her son and sister. Client stated she is no longer taking ativan and denies access to weapons. Progress Toward Goals/Plan:: Client's first day back to IOP following an admission to [place] from 05/05/19-05/12/19. Client shared she is motivated for treatment and reports belief I needed to hit rock bottom with drinking. Client understands the expectations for IOP and discussed the consequences of not being consistent with her mental health treatment. Client currently endorses a depressed mood, low energy, anhedonia, poor sleep, lack of motivation, and ruminations. Client has a history of rapid cycling and was rapid cycling prior to her most recent hospitalization. Will continue IOP tx to prevent decompensation, improve mood stability, and maintain safety. Time Stopped:: 09:55
--- NOTE | 2019-05-21 13:56 | BH.DS_ITS ---
Discharge Summary - Demographics Date of Admission:: 05/15/19 Discharge Date: 05/21/19 Presenting Problems at Admission:: Client is a 38-year-old female with a history of bipolar disorder. Client has a history of 6-8 psychiatric admissions with the most recent to [place] from 05/05/19-05/12/19 due to a suicidal gesture via overdose. Prior to admission, client was participating in [facility] but began showing decompensation of symptoms and was reported included impulsive behaviors. At time of first IOP admission, reported restlessness, increased impulsivity, excessive shopping, and risky sexual behaviors. When client returned to [facility], she was reporting no suicidal ideations and denied symptoms of ivonne. However, client endorsed a depressed mood, anhedonia, ruminations, low energy, and irritability. Client's symptoms were continuing impacting her familial, social, and occupational functioning. Discharge Diagnoses:: Bipolar 1 disorder most recent episode mixed severe, without psychosis F31.63; with rapid cycling.; Anxiety disorder NOS; PTSD; Cluster B Traits Reason for Discharge:: Client called into [facility] reporting that she no longer wants to participate in [facility] due to childcare issues. Client was offered telehealth, but declined this service reporting she did not want to repeat groups. - Treatment Progress During Treatment & Response: Client discharged from [facility] before completing her treatment goals and demonstrated mild progress while in [facility]. Client reported she did not want to continue IOP because she did not want to repeat groups and felt like she has learned healthy coping skills. Client has shown progress in her increased self-awareness that using substances only exacerbates client?s mood symptoms. Client has removed all the alcohol in her home and self-reported ?I?m done with it for good.? Client?s medications were changed by her outpatient psychiatrist and client reported this has been helped so far in improving sleep and reducing her manic symptoms. Client returned to [facility] on 05/15/19 and discharged 05/21/19, so this therapist was only able to meet with client once. Issues Still to be Addressed:: Client can benefit from ongoing work to improve her emotional regulation skills, stabilize mood symptoms, reduce impulsivity, and decrease the intensity of her mental health symptoms. Client self-reported lack of follow through in applying coping skills while in [facility] which could have contributed to her decompensation prior to her last hospitalization. Client can also benefit from improving her interpersonal effectiveness skills, improve decision-making, and setting healthy boundaries with herself and others. Lastly, client?s trauma and low self-worth continue to impact client in multiple areas of functioning. Discharge Recommendations/Instructions:: Client encouraged to follow up with her outpatient providers for continuity of care. Client last saw her outpatient psychiatrist, Dr. Farley, on 05/20/19. Client's outpatient provider changed her medication at this time and per client's report, it is helping client's mood. Client sees her outpatient therapist, Dr. Busby, on 06/09/19. Client was offered information for additional IOPs but client declined at this time. Discharge Handout: Complete Discharge Handout with client on aftercare options and continuity of care.
== END 2019-05-21 14:00 | disposition home or self-care (01) ==
LOC: BHIOP 09:00
PROVIDERS: PCP Internal Medicine; Referring Provider Psychiatry & Neurology Psychiatry; Visit Provider Psychiatry & Neurology Psychiatry
DX: F31.63 Bipolar disorder, current episode mixed, severe, without psychotic features (principal); F41.9 Anxiety disorder, unspecified; F43.10 Post-traumatic stress disorder, unspecified
CPT/HCPCS: H0035; 90832; 90853

== ENCOUNTER → 2019-06-25 12:47 | Outpatient (CLI) | payer MEDICARE, MEDICAID, SELFPAY ==
[2019-06-23 12:28] VITALS: BMI 38.9
[2019-06-25 13:40] LABS: Anion Gap 6 (5-15); BUN 8 mg/dL (7-18); Calcium,Total 9.6 mg/dL (8.5-10.1); Chloride 107 mmol/L (98-107); EST Glomerular Filtration Rate 66 mL/min (>60); Est Glom Filt Rate - Afr Amer 80 mL/min (>60); Glucose 114 mg/dL (74-106); Potassium 3.9 mmol/L (3.5-5.1); Sodium Level 140 mmol/L (136-145)
[2019-06-25 13:50] LABS: Hemoglobin A1c 6.9 % (4.2-6.3)
== END ==
PROVIDERS: PCP Internal Medicine; Referring Provider Internal Medicine; Visit Provider Internal Medicine
DX: E11.9 Type 2 diabetes mellitus without complications (principal)
CPT/HCPCS: 80048; 82043; 82570; 83036

== ENCOUNTER → 2019-10-01 10:08 | Outpatient (CLI) | payer MEDICARE, MEDICAID, SELFPAY ==
[2019-06-23 12:28] VITALS: BMI 38.9
[2019-08-25 08:54] VITALS: BMI 38.9
[2019-10-01 10:45] LABS: Platelet Count 210 K/mm3 (150-450)
[2019-10-01 10:58] LABS: Anion Gap 2 (5-15); BUN 7 mg/dL (7-18); BUN/Creat Ratio 6.9 RATIO (10-20); Calcium,Total 9.7 mg/dL (8.5-10.1); Chloride 106 mmol/L (98-107); Creatinine, Serum 1.01 mg/dL (0.55-1.02); EST Glomerular Filtration Rate 65 mL/min (>60); Est Glom Filt Rate - Afr Amer 79 mL/min (>60); Glucose 104 mg/dL (74-106); Potassium 4.7 mmol/L (3.5-5.1); Sodium Level 139 mmol/L (136-145)
[2019-10-01 11:05] LABS: Hemoglobin A1c 6.3 % (3.8-5.6)
[2019-10-01 11:09] LABS: AST(SGOT) 40 U/L (15-37); Alanine Aminotransfer ALT/SGPT 54 U/L (13-56)
[2019-10-01 11:10] LABS: Valproic Acid (Depakene) Level 65 ug/mL (50-100)
[2019-10-01 12:02] LABS: Microalbumin:Creatinine Ratio 180.1 mg/g CRE (<30 mg/g CRE)
== END ==
PROVIDERS: PCP Internal Medicine; Referring Provider Psychiatry & Neurology Psychiatry; Visit Provider Psychiatry & Neurology Psychiatry
DX: E11.9 Type 2 diabetes mellitus without complications (principal); F19.10 Other psychoactive substance abuse, uncomplicated; R53.83 Other fatigue; Z79.899 Other long term (current) drug therapy
CPT/HCPCS: 36415; 80048; 80164; 82043; 82140; 82570; 83036; 84450; 84460; 85049

== ENCOUNTER → 2019-10-30 13:52 | Outpatient (CLI) | payer MEDICARE, MEDICAID, SELFPAY ==
[2019-10-30 13:37] VITALS: BMI 38.9
[2019-10-30 16:16] LABS: Microalbumin:Creatinine Ratio 90.2 mg/g CRE (<30 mg/g CRE)
== END ==
PROVIDERS: Nurse Practitioner Family; PCP Internal Medicine; Visit Provider Internal Medicine
DX: E11.29 Type 2 diabetes mellitus with other diabetic kidney complication (principal); R80.9 Proteinuria, unspecified
CPT/HCPCS: 82043; 82570

== ENCOUNTER → 2019-11-16 13:30 | Outpatient (CLI) | payer MEDICARE, MEDICAID, SELFPAY ==
[2019-11-16 13:00] VITALS: BMI 38.9
[2019-11-20 03:08] LABS: Chlamydia By Nucleic Acid AMP Positive (Negative)
[2019-11-20 04:54] LABS: Gonococcus By Nucleic Acid AMP Negative (Negative)
== END ==
PROVIDERS: PCP Internal Medicine; Referring Provider Obstetrics & Gynecology; Visit Provider Obstetrics & Gynecology
DX: Z11.3 Encounter for screening for infections with a predominantly sexual mode of transmission (principal); Z12.4 Encounter for screening for malignant neoplasm of cervix
CPT/HCPCS: 87491; 87591; 87624; 88175; G0145

== ENCOUNTER 2019-12-15 09:15 | Day surgery (SDC) | payer MEDICARE, MEDICAID, SELFPAY ==
[2019-11-16 13:00] VITALS: BMI 38.9
--- NOTE | 2019-12-08 09:07 | EKG12_ITS ---
Test Reason : PREOP Blood Pressure : / mmHG Vent. Rate : 103 BPM Atrial Rate : 103 BPM P-R Int : 142 ms QRS Dur : 080 ms QT Int : 322 ms P-R-T Axes : 072 057 046 degrees QTc Int : 421 ms Sinus tachycardia Nonspecific T wave abnormality Abnormal ECG Confirmed by ONEYDA MARCOS, GEOVANI ([id number]), continuity editor HOLLEY ZHENG ([id number]) on 12/09/2019 9:13:10 AM Referred By: Lizbeth Tracey Confirmed By:GEOVANI CALL MD
[2019-12-08 10:05] LABS: Hematocrit 42.4 % (37-47); Mean Corpuscular Hgb 31.3 pg (27.0-32.0); Mean Corpuscular Volume 94.6 fL (81-99); Mean Platelet Vol. 10.5 fl (6.2-12.0); Platelet Count 195 K/mm3 (150-450); RBC Distribution Width CV 13.5 % (11.6-14.6); RBC Distribution Width SD 47.5 fl (35.1-43.9); Red Blood Count 4.48 M/mm3 (4.2-5.4); White Blood Count 8.2 K/mm3 (4.4-11.0)
[2019-12-08 10:08] LABS: Partial Thromboplast Time 30.8 Seconds (24.1-36.2)
[2019-12-15] VITALS (7 sets, daily range): BP systolic 117–140; BP diastolic 84–94; PULSE 79–95; RESP 14–18; TEMP 35.8–36.4; O2SAT 91–98; BMI 42.4
--- NOTE | 2019-12-15 | FALS_PTH ---
PATIENT: LENIN SHELLEY LOC: [facility] [place] U#:[id number] AGE/SX: 39/F ROOM: RE12/15/[address]: Dr. Lizbeth Tracye MD : 1980 BED: DIS: 12/15/2019 SPEC #: [id number] RECD: 12/15/19 13:10 STATUS: SAMUEL CONNER #: [id number] MARÍA: 12/15/19 00:[address]: Lizbeth Tracey DEPT: SURGICAL PATHOLOGY RECD BY: Servando Sands ENTERED: 12/15/19 13:39 SP TYPE: FALL TUBES OTHR DR: Dr. Ashley Varela MD Tissues: A - Fallopian tube B - Endometrium, NOS Procedures: Surgery Specimen Level II Surgery Specimen Level IV HEADER OPERATION: Hysteroscopy, D & C, laparoscopic bilateral salpingectomy PRE-OP DIAGNOSIS: Tubal ligation, abnormal uterine bleeding TISSUE SUBMITTED: A - Bilateral tubal segments, B - Endometrial curettings MICROSCOPIC DIAGNOSIS A. Bilateral fallopian tubes, salpingectomy: Bilateral fallopian tubes including fimbrial ends, no pathologic diagnosis. B. Endometrial curettings: Proliferative endometrium. Fragments of benign endocervical mucosa with moderate acute and chronic inflammation and squamous metaplasia. Fragments of benign denuded squamous epithelial cells. REZA:neeru 12/16/19 MICROSCOPIC DESCRIPTION Slides are reviewed. GROSS DESCRIPTION A - Received in fixative is one container labeled with the patient's name and designated bilateral tubal segments. The specimen consists of bilateral fallopian tubes including fimbrial ends measuring 7 cm in length and 0.7 cm in diameter and 5 cm in length and 0.5 cm in diameter. The fallopian tubes are not identified as right or left. Sections reveal unremarkable cut surfaces. Director Of [employer] sections are submitted in two cassettes with each cassette containing one fallopian tube. B - Received in fixative is one container labeled with the patient's name and designated endometrial curettings. The specimen consists of multiple fragments of hemorrhagic soft tissue mixed with blood clot that in aggregate measure 7.5 x 3 x 0.3 cm. The specimen is totally submitted in three cassettes. / REZA:neeru 12/15/19 TC:3 CPT: 61716, 07047 x2
[2019-12-15 09:43] LABS: Internal QC Validated? YES +Cl - CLEAR BKGD; Pregnancy, Urine Negative Negative
[2019-12-15] MEDS: Lactated Ringers 1,000 ML 100 ML IV (09:56)
[2019-12-15 10:15] LABS: Bedside Glucose 117 mg/dL (70-110)
--- NOTE | 2019-12-15 10:38 | PCM.HPOB.BLA ---
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 Is patient in pain?: No Allergies No Known Allergies Allergy (Verified 11/16/19 12:59) Medications aripiprazole 30 mg tablet 30 mg PO QHS 10/07/18 [History Confirmed 11/16/19] metformin 850 mg tablet See Rx Instructions .ROUTE .COMPLEX #56 tab 06/02/19 [Rx Confirmed 11/16/19] divalproex 500 mg tablet,delayed release tab PO 08/25/19 [History Confirmed 11/16/19] quetiapine 300 mg tablet 300 mg PO QHS tab 08/25/19 [History Confirmed 11/16/19] lisinopril 5 mg tablet 5 mg PO DAILY #90 tab 10/30/19 [Rx Confirmed 11/16/19] Post menopausal: No Patient : No : No [facility] Medical History (Updated 11/16/19 @ 12:59 by Maria De Jesus Gupta) Anxiety disorder, unspecified (Chronic) 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 Lizbeth Tracey MD) adopted: No housing: apartment number of children: 1 current occupational status: disabled current occupational exposures/hazards: No pets and animals: Yes Smoking Status: Current every day smoker second hand exposure: Yes alcohol intake: never substance use type: marijuana seatbelt use: always do you feel safe at home: Yes additional social history: Pregancy History 1 Elective abortions Hx Para 1 Spontaneous abortions Hx # Term Pregnancies Ectopic pregnancies Hx # Pregnancies Multiple births # of living children 1 Past Pregnancies Del. 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 Hx trich many years ago. Starting to have hot flashes. Periods every 35-40 days and becoming heavier. Typically last 7-10 days. This started about 1 year. Patient does not currently use anything for control.She is interested in permanent sterilization. Patient voices strong desire for permanent sterilization. Reports that with her significant psychiatric history, she would not want to undergo a again. Reports that even if she were to enter a new relationship with somebody who wanted children, there is no circumstance in which she would want to have another child. She desires STI testing as she is currently sexually active with a new partner. Last PAP: Approximately 3 years ago History of abnormal PAP: Denies Female Reproductive History Cycle Length: >35 Questions: Metorrhagia: No, Sexually active: Yes, Dyspareunia: No, PCB: No Menopausal Symptoms: No hot flashes, No night sweats, No weight change, No mood changes, No difficulty concentrating, No sleep problems, No change in libido ROS Const Constitutional: Denies difficulty sleeping, fatigue, fever(s), night sweats, weight gain or weight loss GI GI: Denies change in bowel habits, constipation, nausea or vomiting : Denies genital lesions, genital itching, blood in urine, hot flashes, light periods, heavy periods, metrorrhagia, nipple discharge, frequent nightime urination, pelvic pain, prolapse symptoms, sexual problems, urinary incontinence, urinary hesitancy, urinary urgency, vaginal discharge, vaginal dryness, vaginal odor or vaginal itching Skin Skin/Breast: Denies breast lump, breast pain, breast skin changes or nipple discharge Psych Psych: Denies anxiety, change in sex drive, depression or difficulty concentrating Exam Const General: cooperative, healthy appearing, comfortable, no acute distress, well developed, well groomed Nutritional Appearance: average body habitus, well nourished Orientation: alert, awake, oriented x3 HENMT Head: normal to inspection, normocephalic, atraumatic Eyes Sclera: sclerae normal Cornea: corneas normal Pupils: PERRL, normal by confrontation, accommodation normal Neck Neck: normal visual inspection Thyroid: thyroid normal, symmetrical, not diffusely enlarged, not firm, no masses, nontender Lymphatic: no lymphadenopathy noted Chest Chest palpation & inspection: normal inspection of the chest Breast inspection: normal inspection of the breasts, normal inspection of the axillae Breast palpation: normal palpation of the breasts, normal palpation of the axillae, no axillary lymphadenopathy Resp Effort & Inspection: normal respiratory effort, able to speak in complete sentences, symmetric chest movement Cardio Rate: regular rate GI Inspection: normal to inspection Palpation: soft, no guarding, no masses, not rigid, nontender General: bladder normal to palpation External Female Exam: normal external appearance, no erythema, No tenderness of urethra Urethra: nontender Speculum Exam - Vagina: normal appearance of the vagina, normal vaginal discharge, not erythematous, no lacerations, no lesions, No vaginal bleeding, no swelling, nontender Speculum Exam - Cervix: normal appearance of the cervix, no cervical discharge, no lesions, no masses, nontender Bimanual Exam- Vagina & Uterus: normal bimanual exam, normal vaginal palpation, uterine size normal, bladder normal to palpation, uterine shape normal, No cervical tenderness, uterine mobility normal, uterine consistency normal, normal cervical palpation, uterus non-tender Bimanual Exam- Adnexa, other: normal adnexae, adnexae mobile, no adnexal masses, pelvic support normal, adnexae non-tender, No cul-de-sac fullness, No cul-de-sac tenderness, No cul-de-sac nodularity, apex supported Recto-Vaginal: no cul-de-sac fullness, no cul-de-sac tenderness, no cul-de-sac nodularlity Pelvic Support: normal, no cystocele, no rectocele, no enterocele, apex supported OB/External & Speculum: No vaginal bleeding Speculum Exam: no vaginal bleeding Skin General: no rashes or lesions noted, elasticity normal, turgor normal Neuro General: alert, awake, oriented x3 Cranial Nerves: CN's II-XI intact bilaterally, PERRL, accommodation normal, EOM intact bilaterally Cognition: normal cognition Speech: speech normal Gait: normal gait Psych Appearance: grossly normal, well kempt Mental Status: mental status grossly normal Mood: congruent mood Speech and Movement: speech and movement normal Attitude: cooperative Thought Process: normal Thought Content: normal Judgment: judgment good Results Office Trichomonas Vaginalis Office Trichomonas vaginalis Negative Last Edit by Maria De Jesus Gupta on 11/16/19 14:02 Assessment & Plan 1. Encounter for well woman exam with abnormal findings Z01.411 Plan Pap performed today. Discussed breast self awareness. Encourage diet and exercise for healthy weight. Desires STD testing - gonorrhea and Chlamydia as well as trichomonas done today. Recommended testing for HIV, syphilis, and hepatitis C however not covered by insurance. 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 Not provided with information regarding healthy lifestyle and patient resources. 2. Encounter for tubal ligation counseling Z30.8 Plan Patient reports strong desire for tubal ligation. She has a 12-year-old child and is happy with not having for their children. Reports that there is no situation in which she would be interested in undergoing a again given that she has a significant psychiatric history. The nature of the procedure was discussed with the patient. Risks, benefits, indications, and alternatives to the procedure were discussed with the patient including bleeding, infection, and visceral or vascular injury. Agreeable to blood products if medically necessary. Discussed possibility of infection inside abdomen or at incision sites which could require outpatient or inpatient antibiotics. Discussed the possibility of injury to uterus, tubes, ovaries, bowel, and bladder. Aware that this could require intra-op consult to general surgery or urology. Also aware of the possibility of prolonged hospitalization or reoperation. Discussed possibility of need to convert to open to procedure. Recommend bilateral salpingectomy as mode of tubal ligation given that this significantly decreases the chance of ovarian cancer in the future. All questions were answered. Patient voices understanding and agrees to proceed with laparoscopic bilateral salpingectomy 3. Abnormal uterine bleeding (AUB) N93.9 Plan Patient reports periods becoming significantly less frequent and significantly heavier over the past year. Patient is planning to undergo bilateral tubal ligation. Recommend proceeding with hysteroscopy with dilation and curettage at the time of laparoscopy. Plan Detail Other Orders Orders: POC Trichomonas Vaginalis Today Z11.3 CT/NG [facility] BY PCR Today Z11.3 Coding Level of Care Code Off vis,new,prev 18-39yrs Diagnoses Encounter for well woman exam with abnormal findings Z01.411 Encounter for tubal ligation counseling Z30.8 Abnormal uterine bleeding (AUB) N93.9 UPDATE- I have seen the patient and performed any clinically relevant updates to the history and physical exam. Lizbeth Tracey MD
--- NOTE | 2019-12-15 10:41 | DCINST_ITS ---
Discharge Diet: No Restrictions, - - Increase fluid intake for 48 hours. Discharge Activity: Return to Normal Activity, May Drive - when you are no longer taking narcotic pain medications., May Shower, May Take a Tub Bath - in 7 days., - - Ambulate often the next week after surgery. Additional Activity Instructions:: Nothing in the vagina for the next 5 days. Call your doctor if your incision/area has: Continuous Slow Oozing, Sudden Increased Bleeding, Increased Pain/ Swelling, Increased Redness, Foul Smelling Discharge, Swelling at the incision site Call your doctor if you observe: Fever of 101 or Higher Allergies/Adverse Reactions: Allergies No Known Allergies Allergy (Verified 12/15/19 09:38) Medications to take at Discharge aripiprazole 30 mg tablet 30 mg PO QHS 10/07/18 metformin 850 mg tablet See Rx Instructions .ROUTE .COMPLEX #56 tab 06/02/19 divalproex 500 mg tablet,delayed release 2 tab PO QHS 08/25/19 quetiapine 300 mg tablet 300 mg PO QHS tab 08/25/19 Lisinopril 5 mg PO DAILY 12/04/19 Multivitamin 1 ea PO DAILY 12/04/19 Primary Care Physician: Ashley Varela MD [Primary Care Provider] - Test Results: Test results from this visit will be discussed in further detail at your follow- up appointment, if applicable.
--- NOTE | 2019-12-15 10:42 | OP.PCM_ITS ---
Problem List (1) Encounter for tubal ligation Status: Acute (2) Abnormal uterine bleeding (AUB) Status: Acute Report of Operation Date of Procedure: 12/15/19 Pre-Operative Diagnosis: Desire for tubal ligation, abnormal uterine bleeding Post-Operative Diagnosis: Same Surgery/Procedure Performed:: Laparoscopic bilateral salpingectomy, hysteroscopy, D&C Description of Surgical Findings:: Normal appearing uterus, tubes, and ovaries bilaterally. Normal appearing uterine cavity. 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 She was prepped and draped in the dorsal lithotomy position with yellofin stirrups. A weighted speculum was placed in the posterior aspect of the vagina and the anterior lip of the cervix was grasped with a single tooth tenaculum. The cervix was sequentially dilated with Efraín dilators to accomodate a Zumi uterine manipulator. All instruments aside from the manipulator were then removed from the vagina. Gloves were changed and attention was directed to the abdominal cavity. The umbilicus was injected with 0.5% marcaine then grasped with towel clamps. A 5mm incision was made at the base of the umbilicus. A veress needle was inserted and intra-abdominal placement was confirmed with the water drop test. The abdomen was insufflated. A 5mm optiview trochar was then inserted under direct visualization. No evidence of intra-abdominal trauma was noted. 5mm accessory ports were then placed in the right and left lower quadrants. The fallopian tube s were identified and appeared normal. The tubes were elevated and the ligasure device was used to cauterize and transect the mesosalpinx immediately beneath the tubes. The tubes were removed through the accessory ports. The surgical sites were inspected and hemostasis was noted. All instruments were removed from the abdomen. The port sites were closed in a simple interrupted fashion using 4- 0 monocryl. Attention was redirected to the vagina. The uterine manipulator was removed. A weighted speculum was placed in the posterior aspect of the vagina and the cervix was grasped with a single-tooth tenaculum. The cervix was dilated to accommodate a hysteroscopy. The hysteroscope was introduced into the uterine cavity and the cavity was noted to appear normal. The scope was removed. A sharp curettage was then performed until a gritty feeling was noted. The tenaculum was removed from the cervix and hemostasis was noted. All other instruments were removed from the vagina and the procedure was deemed complete. Counts were correct x2. The patient was awakened from anesthesia and taken to the recovery room in stable condition. - Complications None - Admit VTE Documentation VTE Present on Admission: No VTE Mechan Device Prophylaxis: SCD's VTE Pharm Prophylaxis ordered?: No Multi Select Codes - Urinary/Genital Urinary/Genital CPT Codes: 09984 Non-ob D&C, 10057 Hysteroscopy, diagnostic, 55020 Laproscopic BS/O - BS only
[2019-12-15] MEDS: Bupivacaine Mpf 0.5% 30 ML VIAL (11:08)
[2019-12-15 12:05] LABS: Bedside Glucose 155 mg/dL (70-110)
== END 2019-12-15 13:35 | disposition home or self-care (01) ==
LOC: SDC 09:15 → AC 09:16
PROVIDERS: Anesthesiology; PCP Internal Medicine; Referring Provider Obstetrics & Gynecology; Visit Provider Obstetrics & Gynecology
PROC: 0UDB8ZZ Extraction of Endometrium, Via Natural or Artificial Opening Endoscopic (ICD-10-PCS; CPT 58558; principal; 2019-12-15 10:45)
DX: Z30.2 Encounter for sterilization (principal); Z20.828 Contact with and (suspected) exposure to other viral communicable diseases; Z79.899 Other long term (current) drug therapy; Z79.84 Long term (current) use of oral hypoglycemic drugs; E11.9 Type 2 diabetes mellitus without complications; F31.89 Other bipolar disorder; N93.9 Abnormal uterine and vaginal bleeding, unspecified; F41.9 Anxiety disorder, unspecified; F31.9 Bipolar disorder, unspecified; R19.7 Diarrhea, unspecified; F17.200 Nicotine dependence, unspecified, uncomplicated; R00.0 Tachycardia, unspecified; R94.31 Abnormal electrocardiogram [ECG] [EKG]; N94.10 Unspecified dyspareunia
CPT/HCPCS: 00840; 58558; 58661; 36415; 81025; 82962; 85027; 85730; 86850; 86900; 86901; 87635; 88302; 88305; 93005; C9803; J7120; J2405; U0003

== ENCOUNTER → 2020-01-25 09:31 | Outpatient (CLI) | payer MEDICARE, MEDICAID, SELFPAY ==
[2019-12-30 11:39] VITALS: BMI 42.2
[2020-01-25 12:47] LABS: Hemoglobin A1c 6.8 % (3.8-5.6)
[2020-01-25 13:04] LABS: Microalbumin:Creatinine Ratio 192.5 mg/g CRE (<30 mg/g CRE)
== END ==
PROVIDERS: PCP Internal Medicine; Referring Provider Internal Medicine; Visit Provider Internal Medicine
DX: E11.9 Type 2 diabetes mellitus without complications (principal)
CPT/HCPCS: 36415; 82043; 82570; 83036

== ENCOUNTER → 2020-04-26 11:21 | Outpatient (CLI) | payer MEDICARE, MEDICAID, SELFPAY ==
[2019-12-30 11:39] VITALS: BMI 42.2
[2020-04-26 12:47] LABS: Platelet Count 184 K/mm3 (150-450)
[2020-04-26 13:20] LABS: Microalbumin:Creatinine Ratio 361.2 mg/g CRE (<30 mg/g CRE)
[2020-04-26 13:37] LABS: ALB/GLOB Ratio 0.9 RATIO (0.9-2.4); AST(SGOT) 37 U/L (15-37); Alanine Aminotransfer ALT/SGPT 41 U/L (13-56); Albumin, Serum 3.8 g/dL (3.2-5.0); Alkaline Phosphatase 58 U/L (45-117); Anion Gap 6 (5-15); BUN 8 mg/dL (7-18); BUN/Creat Ratio 8.8 RATIO (10-20); Calcium,Total 9.6 mg/dL (8.5-10.1); Chloride 103 mmol/L (98-107); Creatinine, Serum 0.91 mg/dL (0.55-1.02); EST Glomerular Filtration Rate 73 mL/min (>60); Est Glom Filt Rate - Afr Amer 89 mL/min (>60); Globulin 4.2 g/dL (2.2-4.2); Glucose 96 mg/dL (74-106); Potassium 3.9 mmol/L (3.5-5.1); Sodium Level 136 mmol/L (136-145)
[2020-04-26 13:54] LABS: Valproic Acid (Depakene) Level 48 ug/mL (50-100)
== END ==
PROVIDERS: PCP Internal Medicine; Referring Provider Psychiatry & Neurology Psychiatry; Visit Provider Psychiatry & Neurology Psychiatry
DX: F19.10 Other psychoactive substance abuse, uncomplicated (principal); R53.83 Other fatigue; Z79.899 Other long term (current) drug therapy
CPT/HCPCS: 36415; 80053; 80164; 82043; 82140; 82570; 85049

== ENCOUNTER → 2020-07-20 15:55 | Outpatient (CLI) | payer MEDICARE, MEDICAID, SELFPAY ==
[2020-07-20 13:50] VITALS: BMI 40.8
[2020-07-23 00:11] LABS: Chlamydia By Nucleic Acid AMP Negative (Negative)
[2020-07-23 10:01] LABS: Gonococcus By Nucleic Acid AMP Negative (Negative)
== END ==
PROVIDERS: PCP Internal Medicine; Referring Provider Nurse Practitioner Women's Health; Visit Provider Nurse Practitioner Women's Health
DX: N76.0 Acute vaginitis (principal); Z11.3 Encounter for screening for infections with a predominantly sexual mode of transmission
CPT/HCPCS: 87070; 87205; 87491; 87591

== ENCOUNTER → 2020-08-17 13:31 | Outpatient (CLI) | payer MEDICARE, MEDICAID, SELFPAY ==
[2020-08-17 13:14] VITALS: BMI 40.8
[2020-08-17 15:21] LABS: HIV - WCH Non-Reactive (Nonreactive); Hepatitis C Antibody Non-Reactive (Nonreactive); Syphilis Antibodies Non-reactive
[2020-08-19 18:38] LABS: HSV 2 IgG 4.81 index (0.00-0.90)
== END ==
PROVIDERS: PCP Internal Medicine; Referring Provider Nurse Practitioner Women's Health; Visit Provider Nurse Practitioner Women's Health
DX: A64 Unspecified sexually transmitted disease (principal); Z20.2 Contact with and (suspected) exposure to infections with a predominantly sexual mode of transmission
CPT/HCPCS: 36415; 86695; 86696; 86703; 86780; 86803

== ENCOUNTER → 2020-10-18 18:33 | Outpatient (CLI) | payer MEDICARE, MEDICAID, SELFPAY | PROVIDERS: PCP Internal Medicine; Visit Provider Physician Assistant Surgical | DX: J02.9 Acute pharyngitis, unspecified (principal) | CPT/HCPCS: 87635; U0005; U0003 ==

== ENCOUNTER → 2020-12-22 13:14 | Outpatient (CLI) | payer MEDICARE, MEDICAID, SELFPAY ==
[2020-12-22 15:21] LABS: Platelet Count 191 K/mm3 (150-450)
[2020-12-22 15:38] LABS: AST(SGOT) 30 U/L (15-37); Alanine Aminotransfer ALT/SGPT 30 U/L (13-56)
[2020-12-22 15:51] LABS: Valproic Acid (Depakene) Level 32 ug/mL (50-100)
== END ==
PROVIDERS: PCP Internal Medicine; Referring Provider Psychiatry & Neurology Psychiatry; Visit Provider Psychiatry & Neurology Psychiatry
DX: F19.10 Other psychoactive substance abuse, uncomplicated (principal); R53.83 Other fatigue; Z79.899 Other long term (current) drug therapy
CPT/HCPCS: 36415; 80164; 82140; 84450; 84460; 85049

== ENCOUNTER 2021-03-15 10:05 | Outpatient (CLI) | payer MEDICARE, MEDICAID, SELFPAY ==
--- NOTE | 2021-03-15 10:09 | BI_ITS ---
MAMMOGRAPHY - BILATERAL SCREENING REASON FOR EXAM: Female, 40 years old. Routine annual screening examination. PERTINENT HISTORY: Non-contributory. TECHNIQUE: Digital bilateral breast william (3D mammographic acquisition) in the CC and MLO projections. 2-D mediolateral oblique (MLO) and craniocaudad (CC) views of both breasts were obtained. CAD: Full Field Digital Mammography with Computer Added Detection was performed. COMPARISON: Comparison is made with prior study dated 03/15/2017. FINDINGS: Breast Composition: The breasts are almost entirely fatty. There are no dominant masses or suspicious calcifications. No other significant abnormalities are identified. There has been no significant change since the prior study. BI/SCRN MAMM (CAD)W/WILLIAM BILAT IMPRESSION: Stable bilateral screening mammogram. Yearly follow-up mammogram recommended. (A) ASSESSMENT CATEGORY: BIRADS Category 1: Negative. A letter regarding these results will be sent to the patient by the facility within 30 days. Approximately 10% of breast cancers are not detected by mammography. A normal mammogram should not delay biopsy of a clinically suspicious abnormality. [id number] Electronically Signed: Warren Cabrales MD at 10:48 EST ,
== END 2021-03-15 23:59 | disposition short-term general hospital (02) ==
LOC: OPBI 10:08
PROVIDERS: PCP Internal Medicine; Referring Provider Nurse Practitioner Women's Health; Visit Provider Nurse Practitioner Women's Health
DX: Z12.31 Encounter for screening mammogram for malignant neoplasm of breast (principal)
CPT/HCPCS: 77063; 77067

== ENCOUNTER 2021-05-10 14:25 | Outpatient (CLI) | payer MEDICARE, MEDICAID, SELFPAY ==
[2021-05-10 17:05] LABS: Absolute Lymphocyte Count 2.32 X10^3/uL (0.83-4.51); Absolute Neutrophil Count 5.2 X10^3/uL (2.0-7.7); Basophil# 0.04 X10^3/uL; Basophil% 0.4 % (0-1); Eosinophil# 0.81 X10^3/uL; Eosinophils% 9.1 % (0-5); Hematocrit 42.3 % (37-47); Lymphocyte # 2.32 X10^3/ul (0.83-4.51); Mean Corp Hgb Conc 33.1 g/dL (32-36); Mean Corpuscular Hgb 30.7 pg (27.0-32.0); Mean Corpuscular Volume 92.8 fL (81-99); Mean Platelet Vol. 11.8 fl (6.2-12.0); Monocyte# 0.46 X10^3/uL; Monocyte% 5.2 % (0-10); NRBC Flagged by Analyzer 0 % (0-5); Neutrophil # 5.23 X10^3/uL (2.7-7.7); Neutrophil % 58.7 % (47-70); Platelet Count 228 K/mm3 (150-450); RBC Distribution Width CV 14.3 % (11.6-14.6); RBC Distribution Width SD 47.9 fl (35.1-43.9); Red Blood Count 4.56 M/mm3 (4.2-5.4); White Blood Count 8.9 K/mm3 (4.4-11.0)
[2021-05-10 17:27] LABS: ALB/GLOB Ratio 0.8 RATIO (0.9-2.4); AST(SGOT) 40 U/L (15-37); Alanine Aminotransfer ALT/SGPT 35 U/L (13-56); Albumin, Serum 3.4 g/dL (3.2-5.0); Alkaline Phosphatase 68 U/L (45-117); Anion Gap 6 (5-15); BUN 9 mg/dL (7-18); Calcium,Total 9.1 mg/dL (8.5-10.1); Chloride 101 mmol/L (98-107); Cholesterol 187 mg/dL (200); EST Glomerular Filtration Rate 74 mL/min (>60); Est Glom Filt Rate - Afr Amer 89 mL/min (>60); Globulin 4.3 g/dL (2.2-4.2); Glucose 193 mg/dL (74-106); High Density Lipoprotein 28 mg/dL; Protein, Total 7.7 g/dL (6.4-8.2); Sodium Level 136 mmol/L (136-145); Thyroid Stim Hormone (TSH) 1.66 uIU/mL (0.358-3.74); Triglycerides 266 mg/dL; Very Low Density Lipoprotein 53 mg/dL (5-40)
[2021-05-10 17:40] LABS: Microalbumin:Creatinine Ratio 115.5 mg/g CRE (<30 mg/g CRE)
== END 2021-05-10 23:59 | disposition home or self-care (01) ==
LOC: BIMLAB 14:26
PROVIDERS: PCP Internal Medicine; Referring Provider Internal Medicine; Visit Provider Internal Medicine
DX: I10 Essential (primary) hypertension (principal); F31.2 Bipolar disorder, current episode manic severe with psychotic features; E11.69 Type 2 diabetes mellitus with other specified complication; R00.0 Tachycardia, unspecified
CPT/HCPCS: 36415; 80053; 80061; 82043; 82570; 84439; 84443; 85025

== ENCOUNTER 2021-05-16 09:03 | Outpatient (CLI) | payer MEDICARE, MEDICAID, SELFPAY ==
--- NOTE | 2021-05-16 09:05 | EKG12_ITS ---
Test Reason : TACHYCARDIA Blood Pressure : / mmHG Vent. Rate : 106 BPM Atrial Rate : 106 BPM P-R Int : 146 ms QRS Dur : 082 ms QT Int : 316 ms P-R-T Axes : 073 053 066 degrees QTc Int : 419 ms sinus tachycardia Nonspecific T wave abnormality Abnormal ECG Confirmed by ONEYDA MARCOS, GEOVANI ([id number]), online editor ALONDRA HOUSE ([id number]) on 05/17/2021 11:41:34 AM Referred By: Ashley Varela Confirmed By:GEOVANI CALL MD
== END 2021-05-16 23:59 | disposition home or self-care (01) ==
LOC: PSN 09:04
PROVIDERS: PCP Internal Medicine; Referring Provider Internal Medicine; Visit Provider Internal Medicine
DX: R00.0 Tachycardia, unspecified (principal)
CPT/HCPCS: 93005

== ENCOUNTER → 2021-07-04 | Outpatient (CLI) | payer MEDICARE, MEDICAID, SELFPAY | END | disposition home or self-care (01) | LOC: PAVLAB 09:08 | PROVIDERS: PCP Internal Medicine; Referring Provider Nurse Practitioner Women's Health; Visit Provider Nurse Practitioner Women's Health | DX: Z20.2 Contact with and (suspected) exposure to infections with a predominantly sexual mode of transmission (principal) | CPT/HCPCS: 36415; 86695; 86696 ==

== ENCOUNTER → 2021-09-04 | Outpatient (CLI) | payer MEDICARE, MEDICAID, SELFPAY ==
[2021-09-04 12:18] LABS: Platelet Count 202 K/mm3 (150-450)
[2021-09-04 12:50] LABS: Valproic Acid (Depakene) Level 41 ug/mL (50-100)
[2021-09-04 12:54] LABS: AST(SGOT) 25 U/L (15-37); Alanine Aminotransfer ALT/SGPT 32 U/L (13-56)
== END | disposition home or self-care (01) ==
LOC: BIMLAB 11:37
PROVIDERS: PCP Internal Medicine; Referring Provider Psychiatry & Neurology Psychiatry; Visit Provider Psychiatry & Neurology Psychiatry
DX: F19.10 Other psychoactive substance abuse, uncomplicated (principal); R53.83 Other fatigue; Z79.899 Other long term (current) drug therapy
CPT/HCPCS: 36415; 80164; 82140; 84450; 84460; 85049

== ENCOUNTER → 2022-02-21 | Outpatient (CLI) | payer MEDICARE, MEDICAID, SELFPAY ==
[2022-02-23 06:07] LABS: Chlamydia By Nucleic Acid AMP Negative (Negative)
[2022-02-23 16:16] LABS: Gonococcus By Nucleic Acid AMP Negative (Negative)
[2022-02-26 21:32] LABS: HPV APTIMA, High Risk Negative (Negative)
== END | disposition home or self-care (01) ==
PROVIDERS: PCP Internal Medicine; Referring Provider Nurse Practitioner Women's Health; Visit Provider Nurse Practitioner Women's Health
DX: Z12.4 Encounter for screening for malignant neoplasm of cervix (principal); Z11.3 Encounter for screening for infections with a predominantly sexual mode of transmission
CPT/HCPCS: 87491; 87591; 87624; 88175; G0145

== ENCOUNTER → 2022-03-09 | Outpatient (CLI) | payer MEDICARE, MEDICAID, SELFPAY ==
[2022-03-09 12:22] LABS: Absolute Lymphocyte Count 2.45 X10^3/uL (0.83-4.51); Absolute Neutrophil Count 4.2 X10^3/uL (2.0-7.7); Basophil# 0.04 X10^3/uL; Basophil% 0.5 % (0-1); Eosinophil# 0.73 X10^3/uL; Eosinophils% 9.1 % (0-5); Hematocrit 40.1 % (37-47); Hemoglobin 13.1 g/dL (12.0-15.0); Lymphocyte # 2.45 X10^3/ul (0.83-4.51); Lymphocyte % 30.7 % (19-41); Mean Corp Hgb Conc 32.7 g/dL (32-36); Mean Corpuscular Hgb 30.5 pg (27.0-32.0); Mean Corpuscular Volume 93.3 fL (81-99); Mean Platelet Vol. 11.1 fl (6.2-12.0); Monocyte# 0.54 X10^3/uL; Monocyte% 6.8 % (0-10); NRBC Flagged by Analyzer 0 % (0-5); Neutrophil # 4.19 X10^3/uL (2.7-7.7); Neutrophil % 52.4 % (47-70); Platelet Count 215 K/mm3 (150-450); RBC Distribution Width CV 13.4 % (11.6-14.6)
[2022-03-09 12:32] LABS: ALB/GLOB Ratio 0.8 RATIO (0.9-2.4); AST(SGOT) 43 U/L (15-37); Alanine Aminotransfer ALT/SGPT 35 U/L (13-56); Albumin, Serum 3.5 g/dL (3.2-5.0); Alkaline Phosphatase 59 U/L (45-117); Anion Gap 6 (5-15); BUN 7 mg/dL (7-18); BUN/Creat Ratio 7.9 RATIO (10-20); Calcium,Total 9.9 mg/dL (8.5-10.1); Chloride 104 mmol/L (98-107); Cholesterol 223 mg/dL (200); Creatinine, Serum 0.88 mg/dL (0.55-1.02); EST Glomerular Filtration Rate 75 mL/min (>60); Est Glom Filt Rate - Afr Amer 91 mL/min (>60); Globulin 4.3 g/dL (2.2-4.2); Glucose 116 mg/dL (74-106); High Density Lipoprotein 31 mg/dL; Potassium 4.8 mmol/L (3.5-5.1); Protein, Total 7.8 g/dL (6.4-8.2); Sodium Level 141 mmol/L (136-145); Triglycerides 202 mg/dL; Very Low Density Lipoprotein 40 mg/dL (5-40)
== END | disposition home or self-care (01) ==
LOC: BIMLAB 10:39
PROVIDERS: PCP Internal Medicine; Referring Provider Internal Medicine; Visit Provider Internal Medicine
DX: I10 Essential (primary) hypertension (principal); E11.9 Type 2 diabetes mellitus without complications
CPT/HCPCS: 36415; 80053; 80061; 85025

== ENCOUNTER → 2022-03-12 | Outpatient (CLI) | payer MEDICARE, MEDICAID, SELFPAY | END | disposition home or self-care (01) | LOC: LABSPEC 10:01 | PROVIDERS: PCP Internal Medicine; Visit Provider Internal Medicine | DX: K92.1 Melena (principal) | CPT/HCPCS: 82274 ==

== ENCOUNTER → 2022-03-26 | Outpatient (CLI) | payer MEDICARE, MEDICAID, SELFPAY ==
--- NOTE | 2022-03-26 15:10 | BI_ITS ---
MAMMOGRAPHY - BILATERAL SCREENING REASON FOR EXAM: Female, 41 years old. Routine annual screening examination. PERTINENT HISTORY: Non-contributory. TECHNIQUE: Digital bilateral breast william (3D mammographic acquisition) in the CC and MLO projections. 2-D mediolateral oblique (MLO) and craniocaudad (CC) views of both breasts were obtained. CAD: Full Field Digital Mammography with Computer Added Detection was performed. COMPARISON: Comparison is made with prior study dated 03/15/2021 and 03/15/2017. FINDINGS: Breast Composition: There are scattered areas of fibroglandular density. There are no dominant masses or suspicious calcifications. No other significant abnormalities are identified. There has been no significant change since the prior study. BI/SCRN MAMM (CAD)W/WILLIAM BILAT IMPRESSION: Stable bilateral screening mammogram. Yearly follow-up mammogram recommended. (A) ASSESSMENT CATEGORY: BIRADS Category 1: Negative. A letter regarding these results will be sent to the patient by the facility within 30 days. Approximately 10% of breast cancers are not detected by mammography. A normal mammogram should not delay biopsy of a clinically suspicious abnormality. [id number] Electronically Signed: Warren Cabrales MD at 8:28 EST ,
== END | disposition home or self-care (01) ==
LOC: OPBI 15:08
PROVIDERS: PCP Internal Medicine; Referring Provider Nurse Practitioner Women's Health; Visit Provider Nurse Practitioner Women's Health
DX: Z12.31 Encounter for screening mammogram for malignant neoplasm of breast (principal)
CPT/HCPCS: 77063; 77067

== ENCOUNTER → 2022-05-07 | Outpatient (CLI) | payer MEDICARE, MEDICAID, SELFPAY ==
[2022-05-07 10:36] LABS: Platelet Count 185 K/mm3 (150-450)
[2022-05-07 10:57] LABS: ALB/GLOB Ratio 0.8 RATIO (0.9-2.4); AST(SGOT) 30 U/L (15-37); Alanine Aminotransfer ALT/SGPT 24 U/L (13-56); Albumin, Serum 3.4 g/dL (3.2-5.0); Alkaline Phosphatase 65 U/L (45-117); Anion Gap 4 (5-15); BUN 8 mg/dL (7-18); BUN/Creat Ratio 8.9 RATIO (10-20); Calcium,Total 9.8 mg/dL (8.5-10.1); Chloride 105 mmol/L (98-107); EST Glomerular Filtration Rate 74 mL/min (>60); Est Glom Filt Rate - Afr Amer 89 mL/min (>60); Glucose 162 mg/dL (74-106); Potassium 4.1 mmol/L (3.5-5.1); Protein, Total 7.4 g/dL (6.4-8.2); Sodium Level 138 mmol/L (136-145)
[2022-05-07 11:09] LABS: Valproic Acid (Depakene) Level 57 ug/mL (50-100)
== END | disposition home or self-care (01) ==
LOC: BIMLAB 09:50
PROVIDERS: PCP Internal Medicine; Referring Provider Psychiatry & Neurology Psychiatry; Visit Provider Psychiatry & Neurology Psychiatry
DX: R53.83 Other fatigue (principal); F19.10 Other psychoactive substance abuse, uncomplicated; Z79.899 Other long term (current) drug therapy
CPT/HCPCS: 36415; 80053; 80164; 82140; 85049

== ENCOUNTER → 2022-12-14 | Outpatient (CLI) | payer MEDICARE, MEDICAID, SELFPAY ==
[2022-12-14 12:46] LABS: Anion Gap 8 (5-15); BUN 9 mg/dL (7-18); BUN/Creat Ratio 9.1 RATIO (10-20); Calcium,Total 9.5 mg/dL (8.5-10.1); Chloride 101 mmol/L (98-107); Creatinine, Serum 0.98 mg/dL (0.55-1.02); EST Glomerular Filtration Rate 66 mL/min (>60); Est Glom Filt Rate - Afr Amer 80 mL/min (>60); Glucose 198 mg/dL (74-106); Potassium 4.4 mmol/L (3.5-5.1); Sodium Level 137 mmol/L (136-145)
[2022-12-14 12:51] LABS: Absolute Lymphocyte Count 2.48 X10^3/uL (0.83-4.51); Basophil# 0.04 X10^3/uL; Basophil% 0.5 % (0-1); Eosinophil# 0.27 X10^3/uL; Eosinophils% 3.3 % (0-5); Hematocrit 41.2 % (37-47); Lymphocyte # 2.48 X10^3/ul (0.83-4.51); Lymphocyte % 30.3 % (19-41); Mean Corp Hgb Conc 31.6 g/dL (32-36); Mean Corpuscular Volume 91.8 fL (81-99); Mean Platelet Vol. 11.8 fl (6.2-12.0); Monocyte# 0.39 X10^3/uL; Monocyte% 4.8 % (0-10); NRBC Flagged by Analyzer 0 % (0-5); Neutrophil # 4.96 X10^3/uL (2.7-7.7); Neutrophil % 60.6 % (47-70); Platelet Count 196 K/mm3 (150-450); RBC Distribution Width CV 13.6 % (11.6-14.6); RBC Distribution Width SD 45.8 fl (35.1-43.9); Red Blood Count 4.49 M/mm3 (4.2-5.4); White Blood Count 8.2 K/mm3 (4.4-11.0)
== END | disposition home or self-care (01) ==
LOC: BIMLAB 09:19
PROVIDERS: PCP Internal Medicine; Visit Provider Internal Medicine
DX: I10 Essential (primary) hypertension (principal)
CPT/HCPCS: 36415; 80048; 85025

== ENCOUNTER → 2023-03-18 | Outpatient (CLI) | payer MEDICARE, MEDICAID, SELFPAY ==
--- OUTSIDE RECORDS SUMMARY | 2023-03-18 09:57 | XMS RPT_ITS | CCD ---
Demographics Address [address] [place] [address] Preferred Language Unknown Marital Status Church Affiliation Unknown Race White Ethnic Group Unknown Author Name Unknown Address [address] [place] [address] Organization [facility] Results Test Name Value Interpretation Reference Range Facil ity Summary Purpose Family History No Family History Records Found Advance Directives No Advanced Directives Records Found Additional Source Comments INFORMATION SOURCE (unrecogn ized section and content) FOR RECORDS PERTAINING TO PATIENTS WHO ARE OR HAVE BEEN ENROLLED IN A CHEMICAL DEPENDENCY/SUBSTANCEABUSE PROGRAM, SOME INFORMATION MAY BE OMITTED. This clinical summary was aggregated from multiple sources. Caution should be exercised in using it in the provision of clinical care. This summary normalizes information from multiple sources, and as a consequence, information in this document may materially change the coding, format and clinical context of patient data. In addition, data may be omitted in some cases. CLINICAL DECISIONS SHOULD BE BASED ON THE PRIMARY CLINICAL RECORDS. [email or web address] provides no warranty or guarantee of the accuracy or completeness of information in this document.
[2023-03-18 12:23] LABS: Hematocrit 40.7 % (37-47); Hemoglobin 12.9 g/dL (12.0-15.0); Mean Corp Hgb Conc 31.7 g/dL (32-36); Mean Corpuscular Hgb 28.5 pg (27.0-32.0); Mean Platelet Vol. 11.6 fl (6.2-12.0); Platelet Count 195 K/mm3 (150-450); RBC Distribution Width CV 14.4 % (11.6-14.6); RBC Distribution Width SD 47.7 fl (35.1-43.9); Red Blood Count 4.52 M/mm3 (4.2-5.4); White Blood Count 9.3 K/mm3 (4.4-11.0)
[2023-03-18 12:56] LABS: Vitamin B12 311 pg/mL (211-911)
[2023-03-18 13:04] LABS: Microalbumin:Creatinine Ratio 83.5 mg/g CRE (<30 mg/g CRE)
[2023-03-18 13:12] LABS: Hemoglobin A1c 7.4 % (3.8-5.6)
[2023-03-18 13:20] LABS: Valproic Acid (Depakene) Level 57 ug/mL (50-100)
[2023-03-18 14:44] LABS: ALB/GLOB Ratio 0.8 RATIO (0.9-2.4); AST(SGOT) 32 U/L (15-37); Alanine Aminotransfer ALT/SGPT 29 U/L (13-56); Albumin, Serum 3.4 g/dL (3.2-5.0); Alkaline Phosphatase 69 U/L (45-117); Anion Gap 4 (5-15); BUN 4 mg/dL (7-18); BUN/Creat Ratio 4.8 RATIO (10-20); Calcium,Total 9.5 mg/dL (8.5-10.1); Chloride 101 mmol/L (98-107); Cholesterol 105 mg/dL (200); Creatinine, Serum 0.83 mg/dL (0.55-1.02); EST Glomerular Filtration Rate 81 mL/min (>60); Est Glom Filt Rate - Afr Amer 98 mL/min (>60); Globulin 4.2 g/dL (2.2-4.2); Glucose 115 mg/dL (74-106); High Density Lipoprotein 27 mg/dL; Potassium 4.4 mmol/L (3.5-5.1); Protein, Total 7.6 g/dL (6.4-8.2); Sodium Level 136 mmol/L (136-145); Thyroid Stim Hormone (TSH) 1.57 uIU/mL (0.358-3.74); Triglycerides 98 mg/dL; Very Low Density Lipoprotein 20 mg/dL (5-40)
== END | disposition home or self-care (01) ==
LOC: BIMLAB 09:17
PROVIDERS: PCP Internal Medicine; Referring Provider Internal Medicine; Visit Provider Internal Medicine
DX: F19.10 Other psychoactive substance abuse, uncomplicated (principal); R53.83 Other fatigue; Z79.899 Other long term (current) drug therapy
CPT/HCPCS: 36415; 80053; 80061; 80164; 82043; 82140; 82570; 82607; 83036; 84146; 84443; 85027

== ENCOUNTER → 2023-04-09 | Outpatient (CLI) | payer MEDICARE, MEDICAID, SELFPAY ==
[2023-04-09 12:56] LABS: Erythrocyte Sedimentation Rate 25 mm/hr (0-30)
[2023-04-09 13:34] LABS: ALB/GLOB Ratio 0.8 RATIO (0.9-2.4); AST(SGOT) 31 U/L (15-37); Alanine Aminotransfer ALT/SGPT 21 U/L (13-56); Albumin, Serum 3.1 g/dL (3.2-5.0); Alkaline Phosphatase 85 U/L (45-117); Anion Gap 7 (5-15); BUN 6 mg/dL (7-18); BUN/Creat Ratio 7.1 RATIO (10-20); CRP < 2.90 mg/L (0.0-3.0); Calcium,Total 9.1 mg/dL (8.5-10.1); Chloride 105 mmol/L (98-107); Creatinine, Serum 0.84 mg/dL (0.55-1.02); EST Glomerular Filtration Rate 79 mL/min (>60); Est Glom Filt Rate - Afr Amer 96 mL/min (>60); Globulin 3.8 g/dL (2.2-4.2); Glucose 110 mg/dL (74-106); Lipase 73 U/L (13-75); Potassium 4.1 mmol/L (3.5-5.1); Protein, Total 6.9 g/dL (6.4-8.2); Sodium Level 138 mmol/L (136-145)
--- OUTSIDE RECORDS SUMMARY | 2023-04-09 20:58 | XMS RPT_ITS | CCD ---
Demographics Address [address] [place] [address] Preferred Language Unknown Marital Status Baptist Affiliation Unknown Race White Ethnic Group Unknown Author Name Unknown Address [address] [place] [address] Organization [facility] Results Test Name Value Interpretation [...] BE BASED ON THE PRIMARY CLINICAL RECORDS. [email or web address] provides no warranty or guarantee of the accuracy or completeness of information in this document.
[2023-04-11 17:07] LABS: Endomysial Antibody IgA Negative (Negative); Immunoglobulin A 234 mg/dL (87-352); t-Transglutaminase IgA <2 U/mL (0-3)
[2023-04-17 00:06] LABS: Calprotectin, Stool 140 ug/g (0-120)
== END | disposition home or self-care (01) ==
PROVIDERS: PCP Internal Medicine; Referring Provider Nurse Practitioner; Visit Provider Nurse Practitioner
DX: R19.7 Diarrhea, unspecified (principal); K58.9 Irritable bowel syndrome, unspecified
CPT/HCPCS: 36415; 80053; 82274; 82784; 83516; 83630; 83690; 83993; 85652; 86140; 86255; 87177; 87209; 87329; 87493; 87506

== ENCOUNTER 2023-06-28 09:43 | Outpatient (CLI) | payer MEDICARE, MEDICAID, SELFPAY ==
[2023-06-28 11:19] LABS: Vitamin B12 350 pg/mL (211-911)
[2023-06-28 11:43] LABS: CRP 3.32 mg/L (0.0-3.0); LDH 168 U/L (84-246)
[2023-06-28 14:58] LABS: Erythrocyte Sedimentation Rate 23 mm/hr (0-30)
[2023-07-02 11:16] LABS: Anti-Centromere B Ab <0.2 AI (0.0-0.9); Anti-Chromatin <0.2 AI (0.0-0.9); Anti-Jo <0.2 AI (0.0-0.9); Anti-Scleroderma-70 AB <0.2 AI (0.0-0.9); Anti-dsDNA Ab 5 IU/mL (0-9); Beef <0.10 kU/L (Class 0); Chocolate <0.10 kU/L (Class 0); Codfish <0.10 kU/L (Class 0); Corn <0.10 kU/L (Class 0); Egg, Whole 0.18 kU/L (Class 0/I); Milk (Cow) 0.31 kU/L (Class 0/I); Mussels <0.10 kU/L (Class 0); Peanut <0.10 kU/L (Class 0); Pork <0.10 kU/L (Class 0); RNP Ab 0.5 AI (0.0-0.9); SJOGREN'S Anti-SS-A test 0.2 AI (0.0-0.9); SJOGREN'S Anti-SS-B test < 0.2 AI (0.0-0.9); Salmon <0.10 kU/L (Class 0); Smith Ab <0.2 AI (0.0-0.9); Soybean <0.10 kU/L (Class 0); Tuna <0.10 kU/L (Class 0); Wheat 0.15 kU/L (Class 0/I)
[2023-07-03 14:09] LABS: ACCA 21 units (0-90); ALCA 39 units (0-60); AMCA 47 units (0-100); Albumin 3.7 g/dL (2.9-4.4); Alpha-1-Globulins 0.2 g/dL (0.0-0.4); Alpha-2-Globulins 0.7 g/dL (0.4-1.0); Cytoplasmic Ab (C-ANCA) <1:20 titer (Neg:<1:20); Endomysial Antibody IgA Negative (Negative); Gastrin, Serum 66 pg/mL (0-115); IgG, Quant 1111 mg/dL (586-1602); Immunoglobulin A 242 mg/dL (87-352); Immunoglobulin E 248 IU/mL (6-495); Immunoglobulin G, Subclass 1 549 mg/dL (248-810); Immunoglobulin G, Subclass 2 389 mg/dL (130-555); Immunoglobulin G, Subclass 3 46 mg/dL (15-102); Immunoglobulin G, Subclass 4 62 mg/dL (2-96); Immunoglobulin M 119 mg/dL (26-217); PROEL- TOTAL PROTEIN 6.9 g/dL (6.0-8.5); Perinuclear Ab (P-ANCA) <1:20 titer (Neg:<1:20); gASCA 43 units (0-50); t-Transglutaminase IgA <2 U/mL (0-3)
== END 2023-06-28 23:59 | disposition home or self-care (01) ==
LOC: LAB 09:44
PROVIDERS: PCP Internal Medicine; Referring Provider Internal Medicine Gastroenterology; Visit Provider Internal Medicine Gastroenterology
DX: R19.7 Diarrhea, unspecified (principal); R19.5 Other fecal abnormalities
CPT/HCPCS: 36415; 82607; 82784; 82785; 82787; 82941; 83516; 83615; 84165; 85652; 86003; 86005; 86036; 86140; 86225; 86235; 86255; 86256; 86334; 86480; 86671

== ENCOUNTER → 2023-07-03 | Outpatient (CLI) | payer MEDICARE, MEDICAID, SELFPAY ==
--- NOTE | 2023-07-03 10:50 | BI_ITS ---
MAMMOGRAPHY - BILATERAL SCREENING 3-D TOMOSYNTHESIS REASON FOR EXAM: Female, 42 years old. Screening for breast cancer PERTINENT HISTORY: No significant family history. TECHNIQUE: 2-D mammograms and 3-D Tomosynthesis of the breast (s) were performed. CAD was performed. COMPARISON: 03/26/2022 FINDINGS: The breast composition is composed of scattered fibroglandular density. Scattered benign calcifications are seen. No dense spiculated masses or suspicious microcalcifications are identified. No architectural distortion is identified. There is no skin thickening or retraction. There has been no significant change since the prior study. BI/SCRN MAMM (CAD)W/WILLIAM BILAT IMPRESSION: No mammographic signs of malignancy. Routine yearly mammograms recommended. ASSESSMENT CATEGORY: BIRADS Category 1: Negative. A letter regarding these results will be sent to the patient by the facility within 30 days. FOLLOW UP RECOMMENDATION: Yearly follow up mammogram recommended. (A) Approximately 10% of breast cancers are not detected by mammography. A normal mammogram should not delay biopsy of a clinically suspicious abnormality. Electronically Signed: Lucas Bain MD at 14:34 EDT ,
== END | disposition home or self-care (01) ==
LOC: OPBI 10:50
PROVIDERS: PCP Internal Medicine; Referring Provider Nurse Practitioner Women's Health; Visit Provider Nurse Practitioner Women's Health
DX: Z12.31 Encounter for screening mammogram for malignant neoplasm of breast (principal)
CPT/HCPCS: 77063; 77067

== ENCOUNTER → 2023-07-04 | Outpatient (CLI) | payer MEDICARE, MEDICAID, SELFPAY ==
[2023-07-10 14:10] LABS: Pancreatic Elastase, Fecal > 800 (>200)
== END | disposition home or self-care (01) ==
PROVIDERS: PCP Internal Medicine; Visit Provider Internal Medicine Gastroenterology
DX: R19.7 Diarrhea, unspecified (principal); R19.5 Other fecal abnormalities
CPT/HCPCS: 82653; 82705; 83630; 83993; 87177; 87209; 87329

== ENCOUNTER 2023-07-11 08:39 | Day surgery (SDC) | payer MEDICARE, MEDICAID, SELFPAY ==
[2023-07-11 08:58] VITALS: BP 120/85; PULSE 97; RESP 16; TEMP 36.3; O2SAT 97; BMI 40.6
[2023-07-11] MEDS: Lactated Ringers 1,000 ML 15 ML IV (09:07)
[2023-07-11 09:28] LABS: Bedside Glucose 145 mg/dL (74-106)
--- NOTE | 2023-07-11 10:00 | COLBX_PTH ---
PATIENT: LENIN SHELLEY LOC: EN U#:[id number] AGE/SX: 42/F ROOM: RE07/11/[address]: Dr. Vladimir Goncalves DO : 1980 BED: DIS: 07/11/2023 SPEC #: [id number] RECD: 07/11/23 12:35 STATUS: SAMUEL PRIETO #: [id number] MARÍA: 07/11/23 10:[address]: Vladimir Goncalves DEPT: SURGICAL PATHOLOGY RECD BY: Servando Sands ENTERED: 07/11/23 14:07 SP TYPE: COLON BX OTHR DR: Dr. Ashley Varela MD Tissues: A - Duodenum, NOS B - Pyloric sphincter C - Gastric mucous membrane D - Gastric mucous membrane E - COLON BIOPSY Procedures: Surgery Specimen Level IV HEADER OPERATION: Colonoscopy, EGD with biopsies PRE-OP DIAGNOSIS: Diarrhea, positive occult stool blood test TISSUE SUBMITTED: A- Duodenum biopsy, B- Pyloric sphincter biopsy, C- Gastric polyp biopsy, D- Gastric fundus polyp biopsy, E- Random colon biopsy MICROSCOPIC DIAGNOSIS A. Duodenum, biopsy: No pathologic change. B. Pyloric sphincter, biopsy: Gastric mucosa with mild chronic inflammation. C. Gastric polyp, biopsy: Gastric mucosa with focal hyperplastic change. D. Gastric fundus, biopsy: Fragments of gastric mucosa with minimal chronic inflammation. E. Colon, random biopsy: No pathologic change. AM/ 07/12/2023 COMMENT B. The results of immunohistochemistry for Helicobacter pylori will be reported separately ([id number]). MICROSCOPIC DESCRIPTION Slides are reviewed. GROSS DESCRIPTION A. Received in fixative is one container labeled with the patient's name and designated Duodenum biopsy. The specimen consists of two irregular fragments of light driver soft tissue that in aggregate measure 0.6 x 0.5 x 0.1 cm. The specimen is totally submitted in one cassette. B. Received in fixative is one container labeled with the patient's name and designated Pyloric sphincter biopsy. The specimen consists of one irregular fragment of light driver soft tissue that measures 0.6 x 0.5 x 0.1 cm. The specimen is totally submitted in one cassette. C. Received in fixative is one container labeled with the patient's name and designated Gastric body polyp. The specimen consists of one irregular fragment of light driver soft tissue that measures 0.6 x 0.6 x 0.1 cm. The specimen is totally submitted in one cassette. D. Received in fixative is one container labeled with the patient's name and designated Gastric fundus polyp. The specimen consists of one irregular fragment of light driver soft tissue that measures 0.5 x 0.5 x 0.1 cm. The specimen is totally submitted in one cassette. E. Received in fixative is one container labeled with the patient's name and designated Random colon biopsy. The specimen consists of multiple irregular fragments of light driver soft tissue that in aggregate measure 1.0 x 0.5 x 0.1 cm. The specimen is totally submitted in one cassette. AM/mr 07/11/23 TC:3 CPT:62031k4
--- NOTE | 2023-07-11 10:00 | IMM_PTH ---
PATIENT: LENIN SHELLEY LOC: [facility] U#:[id number] AGE/SX: 42/F ROOM: RE07/11/[address]: Dr. Vladmiir Goncalves DO : 1980 BED: DIS: 07/11/2023 SPEC #: [id number] RECD: 07/11/23 15:11 STATUS: SAMUEL REQ #: [id number] MARÍA: 07/11/23 10:[address]: Vladimir Goncalves DEPT: IMMUNOHISTOCHEMISTRY RECD BY: Rubén Etienne ENTERED: 07/11/23 15:12 SP TYPE: IMMUNO OTHR DR: Dr. Ashley Varela MD Tissues: B - Pyloric sphincter Procedures: H Pylori (initial) PHYSICIAN & INSTITUTION [place] [id number] SPECIMEN INFORMATION: Tissue Source: B- Pyloric sphincter biopsy Clinical Info: Diarrhea, positive occult stool blood test Specimen Number: [id number] CPT code: 67098 METHODOLOGY: Deparaffinized sections of prefer/formalin-fixed tissue or PAP/DQ stained slides are incubated with monoclonal/polyclonal antibodies/oligonucleotide probes. Localization is made via biotin free immunoperoxidase method. Appropriate controls are performed and reacted as expected. Results on target cell population are indicated in the following table: RESULTS: ANTIBODY / CLONE RESULT Block B H Pylori (polyclonal) negative These tests were developed and their performance characteristics determined by [facility]. They may not have been cleared or approved by the U.S. Food and Drug Administration. The FDA has determined that such clearance or approval is not necessary. The above immunohistochemical/dualISH markers are ordered and reviewed by the Pathologist. INTERPRETATION: B. Pyloric sphincter, biopsy: Negative for Helicobacter pylori organisms. SUDHAKAR/ 07/12/2023
--- NOTE | 2023-07-11 10:20 | PCM.HP.BLA ---
History and Physical Date of Admission: 07/11/23 Chief Complaint: Annual Details: LENIN SHELLEY, is a 42 F who presents to the office today for initial visit. She has been having chronic diarrhea for a long time with positive fecal incontinence. *BGI established 5.17.24 ROS Const Constitutional: Positive for fatigue; No fever(s) or weight change ENT ENT: No difficulty swallowing Cardio Cardiology: Positive for leg pain with exertion Gastro GI: Positive for abdominal pain, bloating, diarrhea, excessive flatus and Blood in stool; No belching, change in bowel habits, change in stool character, coffee ground emesis, constipation, cramping, heartburn, difficulty swallowing, feeling full early, incontinent of stools, Vomiting blood/hematemesis, loose stools, Black,tarry stools, nausea/dyspepsia, pain with swallowing, vomiting or other Musc Musculoskeletal: Positive for muscle cramps, stiffness, sciatica, leg pain at night and leg pain with exertion; No joint pain Skin Skin: No yellowing of the eye or itchy eyes Psych Psychiatric: Positive for anxiety and Positive for depression Endo Endocrine: Positive for fatigue; No weight change Aller/Imm Allergy/Immunologic: No itchy eyes Ken/Lymp Hematologic/Lymphatic: No easy bleeding or easy bruising Exam Const General: cooperative, comfortable and no acute distress Orientation: alert, awake and oriented x3 [facility] Head: normal to inspection, normocephalic and atraumatic Ears: hearing grossly normal bilaterally Neck Neck: normal visual inspection, full ROM, no lymphadenopathy and supple Resp Effort & Inspection: normal respiratory effort and able to speak in complete sentences Auscultation: Bilateral: Clear to Auscultation Cardio Rate: regular rate Rhythm: regular rhythm Heart Sounds: S1 normal and S2 normal GI Palpation: soft (Nontender, no palpable organomegaly) Neuro General: patient alert, patient awake, patient oriented x3, moves all extremities and CN's II-XI intact bilaterally Extrem General: no clubbing, cyanosis or edema Psych Appearance: grossly normal Mental Status: mental status grossly normal Mood: congruent mood Affect: normal affect Assessment and Plan Assessment and Plan (1) Diarrhea: Status: Chronic Qualifiers: Diarrhea type: unspecified type Qualified Code(s): R19.7 - Diarrhea, unspecified Plan: The differential diagnosis for diarrhea is osmotic versus secretory diarrhea. She does have fecal lactoferrin in her stool that is positive but she does not seem to be experiencing any symptoms consistent with inflammatory bowel disease. She does not smoke which can exacerbate inflammatory bowel disease in particular Crohn's disease graded ulcerative colitis. She will undergo colonoscopy and upper endoscopy to evaluate upper and lower GI tract for IgG associated diseases, IgE associated disease and IgA associated diseases. She is okay with plan. (2) Positive occult stool blood test: Status: Acute Orders: Orders WAQAS + Protein Elect, Serum Today R19.5 - Other fecal abnormalities, R19.7 - Diarrhea, unspecified Celiac Disease Profile Today R19.5 - Other fecal abnormalities, R19.7 - Diarrhea, unspecified LDH Today R19.5 - Other fecal abnormalities, R19.7 - Diarrhea, unspecified Allergen, Food Profile 14 Today R19.5 - Other fecal abnormalities, R19.7 - Diarrhea, unspecified XAVIER Comprehensive Panel Today R19.5 - Other fecal abnormalities, R19.7 - Diarrhea, unspecified ANCA Today R19.5 - Other fecal abnormalities, R19.7 - Diarrhea, unspecified Calprotectin, Stool Today R19.5 - Other fecal abnormalities, R19.7 - Diarrhea, unspecified Giardia Lamblia, Stool EIA Today R19.5 - Other fecal abnormalities, R19.7 - Diarrhea, unspecified IBD Expanded Profile Today R19.5 - Other fecal abnormalities, R19.7 - Diarrhea, unspecified Erythrocyte Sed Rate Today R19.5 - Other fecal abnormalities, R19.7 - Diarrhea, unspecified CRP Today R19.5 - Other fecal abnormalities, R19.7 - Diarrhea, unspecified Ova and Parasites [id number] Today K58.9 - Irritable bowel syndrome without diarrhea, R19.5 - Other fecal abnormalities, R19.7 - Diarrhea, unspecified Pancreatic Elastase, Fecal Today R19.5 - Other fecal abnormalities, R19.7 - Diarrhea, unspecified Stool Lactoferrin/WBC Today K58.9 - Irritable bowel syndrome without diarrhea, R19.5 - Other fecal abnormalities, R19.7 - Diarrhea, unspecified Vitamin B12 Today R19.5 - Other fecal abnormalities, R19.7 - Diarrhea, unspecified Gastrin, Serum Today R19.5 - Other fecal abnormalities, R19.7 - Diarrhea, unspecified Quantiferon TB-Gold+ Today R19.5 - Other fecal abnormalities, R19.7 - Diarrhea, unspecified Fecal Fat, Qualitative Today R19.5 - Other fecal abnormalities, R19.7 - Diarrhea, unspecified OVA+PARA w/Giardia EIA [id number] Today R19.5 - Other fecal abnormalities, R19.7 - Diarrhea, unspecified Immunoglobulins G/A/M/E Today R19.5 - Other fecal abnormalities, R19.7 - Diarrhea, unspecified IgG Subclasses Today R19.5 - Other fecal abnormalities, R19.7 - Diarrhea, unspecified I have examined the patient and the H&P has been reviewed. There are no clinical changes since date of exam.
--- NOTE | 2023-07-11 10:59 | OP.CCLET_ITS ---
07/11/2023 Ashley Varela MD [address] [place] [address] [place] [address] Re : Upper GI endoscopy procedure for Josephine De La Cruz Dear Dr. Varela This procedure was performed on June. My impressions and recommendations are as follows: Impressions : - Normal esophagus. - Erythematous mucosa in the gastric fundus, gastric body and pylorus. Biopsied. - No gross lesions in the second portion of the duodenum. Biopsied. Recommendations : - Discharge patient to home. - Resume previous diet. - Continue present medications. - Await pathology results. My findings are described in the full procedure note, which is enclosed. If I can be of further assistance, please feel free to contact me at . Sincerely, Vladimir Goncalves, 07/11/2023 10:58:45 AM This report has been signed electronically.
--- NOTE | 2023-07-11 10:59 | OP.EGD_ITS ---
Patient Name: Josephine De La Cruz Procedure Date: 07/11/2023 10:18 AM Date of : 1980 Age: 42 Procedure: Upper GI endoscopy Indications: Epigastric abdominal pain, Functional Dyspepsia Providers: Vladimir Goncalves DO Referring MD: Ashley Varela MD Medicines: Monitored Anesthesia Care Patient Profile: This is a 42 year old female. Refer to note in patient chart for documentation of history and physical. Patient has symptoms of chronic abdominal cramping and chronic epigastric abdominal pain. Complications: No immediate complications. Procedure: Pre-Anesthesia Assessment: - Prior to the procedure, a History and Physical was performed, and patient medications and allergies were reviewed. The patient is competent. The risks and benefits of the procedure and the sedation options and risks were discussed with the patient. All questions were answered and informed consent was obtained. Patient identification and proposed procedure were verified by the physician in the pre-procedure area. Mental Status Examination: alert and oriented. Airway Examination: normal oropharyngeal airway and neck mobility. Respiratory Examination: clear to auscultation. CV Examination: normal. Prophylactic Antibiotics: The patient does not require prophylactic antibiotics. Prior Anticoagulants: The patient has taken no anticoagulant or antiplatelet agents. ASA Grade Assessment: II - A patient with mild systemic disease. After reviewing the risks and benefits, the patient was deemed in satisfactory condition to undergo the procedure. The anesthesia plan was to use monitored anesthesia care (MAC). Immediately prior to administration of medications, the patient was re-assessed for adequacy to receive sedatives. The heart rate, respiratory rate, oxygen saturations, blood pressure, adequacy of pulmonary ventilation, and response to care were monitored throughout the procedure. The physical status of the patient was re-assessed after the procedure. After obtaining informed consent, the endoscope was passed under direct vision. Throughout the procedure, the patient's blood pressure, pulse, and oxygen saturations were monitored continuously. The Colonoscope was introduced through the mouth, and advanced to the second part of duodenum. The upper GI endoscopy was accomplished without difficulty. The patient tolerated the procedure well. Scope In: 10:28:49 AM Scope Out: 10:32:29 AM Total Procedure Duration Time 0 hours 3 minutes 40 seconds Findings: The examined esophagus was normal. Patchy mildly erythematous mucosa without bleeding was found in the gastric fundus, in the gastric body and at the pylorus. Biopsies were taken with a cold forceps for histology. Verification of patient identification for the specimen was done. Biopsies were taken with a cold forceps for Helicobacter pylori testing. Verification of patient identification for the specimen was done. Estimated blood loss was minimal. No gross lesions were noted in the second portion of the duodenum. Biopsies were taken with a cold forceps for histology. Verification of patient identification for the specimen was done. Estimated blood loss was minimal. Impression: - Normal esophagus. - Erythematous mucosa in the gastric fundus, gastric body and pylorus. Biopsied. - No gross lesions in the second portion of the duodenum. Biopsied. Recommendation: - Discharge patient to home. - Resume previous diet. - Continue present medications. - Await pathology results. Procedure Code(s): --- Professional --- 56455, Esophagogastroduodenoscopy, flexible, transoral; with biopsy, single or multiple CPT copyright 2021 [employer]. All rights reserved. The codes documented in this report are preliminary and upon costume director review may be revised to meet current compliance requirements. Vladimir Goncalves DO 07/11/2023 10:58:45 AM This report has been signed electronically. Number of Addenda: 0 Note Initiated On: 07/11/2023 10:18 AM
[2023-07-11 11:00] VITALS: BP 120/85; BP 123/68; PULSE 89; RESP 18; TEMP 37.1; O2SAT 95
--- NOTE | 2023-07-11 11:02 | OP.CCLET_ITS ---
07/11/2023 Ashley Varela MD [address] [place] [address] [place] [address] Re : Colonoscopy procedure for Josephine De La Cruz Dear Dr. Varela This procedure was performed on June. My impressions and recommendations are as follows: Impressions : - Congested mucosa in the recto-sigmoid colon, in the sigmoid colon, in the descending colon and in the ascending colon. Biopsied. - Diverticulosis in the recto-sigmoid colon and in the sigmoid colon. - The examined portion of the ileum was normal. Recommendations : - Discharge patient to home. - Resume previous diet. - Continue present medications. - Await pathology results. - Repeat colonoscopy in 5 years for surveillance based on pathology results. My findings are described in the full procedure note, which is enclosed. If I can be of further assistance, please feel free to contact me at . Sincerely, Vladimir Goncalves, 07/11/2023 11:02:08 AM This report has been signed electronically.
--- NOTE | 2023-07-11 11:02 | OP.COLON_ITS ---
Patient Name: Josephine De La Cruz Procedure Date: 07/11/2023 10:33 AM Date of : 1980 Age: 42 Procedure: Colonoscopy Indications: Clinically significant diarrhea of unexplained origin Providers: Vladimir Goncalves DO Referring MD: Ashley Varela MD Patient Profile: This is a 42 year old female. Refer to note in patient chart for documentation of history and physical. Patient has symptoms of chronic abdominal cramping and chronic epigastric abdominal pain. Last Colonoscopy: none. The patient's first colonoscopy is today. Complications: No immediate complications. Procedure: Pre-Anesthesia Assessment: - Prior to the procedure, a History and Physical was performed, and patient medications and allergies were reviewed. The patient is competent. The risks and benefits of the procedure and the sedation options and risks were discussed with the patient. All questions were answered and informed consent was obtained. Patient identification and proposed procedure were verified by the physician in the pre-procedure area. Mental Status Examination: alert and oriented. Airway Examination: normal oropharyngeal airway and neck mobility. Respiratory Examination: clear to auscultation. CV Examination: normal. Prophylactic Antibiotics: The patient does not require prophylactic antibiotics. Prior Anticoagulants: The patient has taken no anticoagulant or antiplatelet agents. ASA Grade Assessment: II - A patient with mild systemic disease. After reviewing the risks and benefits, the patient was deemed in satisfactory condition to undergo the procedure. The anesthesia plan was to use monitored anesthesia care (MAC). Immediately prior to administration of medications, the patient was re-assessed for adequacy to receive sedatives. The heart rate, respiratory rate, oxygen saturations, blood pressure, adequacy of pulmonary ventilation, and response to care were monitored throughout the procedure. The physical status of the patient was re-assessed after the procedure. After I obtained informed consent, the scope was passed under direct vision. Throughout the procedure, the patient's blood pressure, pulse, and oxygen saturations were monitored continuously. The Colonoscope was introduced through the anus and advanced to the terminal ileum. The colonoscopy was performed without difficulty. The patient tolerated the procedure well. The quality of the bowel preparation was adequate. The terminal ileum, ileocecal valve, appendiceal orifice, and rectum were photographed. Scope In: 10:33:53 AM Scope Withdrawal Time 0 hours 14 minutes 6 seconds Scope Out: 10:52:10 AM Total Procedure Duration Time 0 hours 18 minutes 17 seconds Findings: The perianal and digital rectal examinations were normal. An area of mildly congested mucosa was found in the recto-sigmoid colon, in the sigmoid colon, in the descending colon and in the ascending colon. Biopsies were taken with a cold forceps for histology. Verification of patient identification for the specimen was done. Estimated blood loss was minimal. A few small-mouthed diverticula were found in the recto-sigmoid colon and sigmoid colon. The terminal ileum appeared normal. Impression: - Congested mucosa in the recto-sigmoid colon, in the sigmoid colon, in the descending colon and in the ascending colon. Biopsied. - Diverticulosis in the recto-sigmoid colon and in the sigmoid colon. - The examined portion of the ileum was normal. Recommendation: - Discharge patient to home. - Resume previous diet. - Continue present medications. - Await pathology results. - Repeat colonoscopy in 5 years for surveillance based on pathology results. Procedure Code(s): --- Professional --- 12919, Colonoscopy, flexible; with biopsy, single or multiple CPT copyright 2021 [employer]. All rights reserved. The codes documented in this report are preliminary and upon stone gluer review may be revised to meet current compliance requirements. Vladimir Goncalves DO 07/11/2023 11:02:08 AM This report has been signed electronically. Number of Addenda: 0 Note Initiated On: 07/11/2023 10:33 AM
[2023-07-11 11:05] VITALS: BP 120/85; BP 122/71; PULSE 93; RESP 16; O2SAT 94
[2023-07-11 11:10] VITALS: BP 111/69; BP 120/85; PULSE 92; RESP 16; O2SAT 93
[2023-07-11 11:15] VITALS: BP 112/71; BP 120/85; PULSE 90; RESP 16; TEMP 36; O2SAT 95
[2023-07-11 11:44] VITALS: BP 120/85
== END 2023-07-11 11:50 | disposition home or self-care (01) ==
LOC: EN 08:40 → AC 09:27
PROVIDERS: PCP Internal Medicine; Referring Provider Internal Medicine; Visit Provider Internal Medicine Gastroenterology
PROC: 0DJD8ZZ Inspection of Lower Intestinal Tract, Via Natural or Artificial Opening Endoscopic (ICD-10-PCS; CPT 45378; principal; 2023-07-11 09:55)
DX: R19.7 Diarrhea, unspecified (principal); K57.30 Diverticulosis of large intestine without perforation or abscess without bleeding; R19.5 Other fecal abnormalities; K63.89 Other specified diseases of intestine; K31.89 Other diseases of stomach and duodenum
CPT/HCPCS: 45380; 43239; 82962; 88305; 88342; J7120; J2405

== ENCOUNTER 2023-08-13 12:43 | Outpatient (RCR) | payer MEDICARE, MEDICAID, SELFPAY | END 2023-09-11 23:59 | LOC: NS 12:43 | PROVIDERS: PCP Internal Medicine; Referring Provider Internal Medicine Gastroenterology; Visit Provider Internal Medicine Gastroenterology | DX: Z71.3 Dietary counseling and surveillance (principal); E11.9 Type 2 diabetes mellitus without complications; Z91.018 Allergy to other foods | CPT/HCPCS: 97802 ==

== ENCOUNTER → 2023-09-18 | Outpatient (CLI) | payer MEDICARE, MEDICAID, SELFPAY ==
[2023-09-18 12:50] LABS: Anion Gap 6 (5-15); BUN 14 mg/dL (7-18); Calcium,Total 9.7 mg/dL (8.5-10.1); Chloride 101 mmol/L (98-107); Creatinine, Serum 0.94 mg/dL (0.55-1.02); EST Glomerular Filtration Rate 70 mL/min (>60); Est Glom Filt Rate - Afr Amer 85 mL/min (>60); Glucose 136 mg/dL (74-106); Potassium 4.1 mmol/L (3.5-5.1); Sodium Level 136 mmol/L (136-145)
== END | disposition home or self-care (01) ==
LOC: BIMLAB 10:44
PROVIDERS: PCP Internal Medicine; Referring Provider Internal Medicine; Visit Provider Internal Medicine
DX: I10 Essential (primary) hypertension (principal)
CPT/HCPCS: 36415; 80048

== ENCOUNTER 2023-10-01 12:37 | Outpatient (RCR) | payer MEDICARE, MEDICAID, SELFPAY | END 2023-10-12 23:59 | LOC: NS 12:37 | PROVIDERS: PCP Internal Medicine; Referring Provider Internal Medicine Gastroenterology; Visit Provider Internal Medicine Gastroenterology | DX: Z71.3 Dietary counseling and surveillance (principal); E11.9 Type 2 diabetes mellitus without complications; Z91.018 Allergy to other foods | CPT/HCPCS: 97803 ==

== ENCOUNTER 2023-10-29 12:46 | Outpatient (RCR) | payer MEDICARE, MEDICAID, SELFPAY | END 2023-11-11 23:59 | LOC: NS 12:46 | PROVIDERS: PCP Internal Medicine; Referring Provider Internal Medicine Gastroenterology; Visit Provider Internal Medicine Gastroenterology | DX: Z71.3 Dietary counseling and surveillance (principal); E11.9 Type 2 diabetes mellitus without complications; Z91.018 Allergy to other foods | CPT/HCPCS: 97803 ==

== ENCOUNTER 2023-12-24 12:43 | Outpatient (RCR) | payer MEDICARE, MEDICAID, SELFPAY | END 2024-01-11 23:59 | LOC: NS 12:43 | PROVIDERS: PCP Internal Medicine; Referring Provider Internal Medicine Gastroenterology; Visit Provider Internal Medicine Gastroenterology | DX: Z71.3 Dietary counseling and surveillance (principal); E11.9 Type 2 diabetes mellitus without complications; Z91.018 Allergy to other foods | CPT/HCPCS: 97803 ==

== ENCOUNTER → 2024-01-27 | Outpatient (CLI) | payer MEDICARE, MEDICAID, SELFPAY ==
[2024-01-27 07:28] LABS: Hematocrit 37.9 % (37-47); Hemoglobin 12.1 g/dL (12.0-15.0); Mean Corp Hgb Conc 31.9 g/dL (32-36); Mean Corpuscular Hgb 28.4 pg (27.0-32.0); Mean Platelet Vol. 10.4 fl (6.2-12.0); Platelet Count 185 K/mm3 (150-450); RBC Distribution Width CV 14.3 % (11.6-14.6); Red Blood Count 4.26 M/mm3 (4.2-5.4); White Blood Count 9.9 K/mm3 (4.4-11.0)
[2024-01-27 08:04] LABS: ALB/GLOB Ratio 0.8 RATIO (0.9-2.4); AST(SGOT) 33 U/L (15-37); Alanine Aminotransfer ALT/SGPT 36 U/L (13-56); Albumin, Serum 3.3 g/dL (3.2-5.0); Alkaline Phosphatase 61 U/L (45-117); Anion Gap 5 (5-15); BUN 7 mg/dL (7-18); BUN/Creat Ratio 8.3 RATIO (10-20); Chloride 104 mmol/L (98-107); Cholesterol 104 mg/dL (200); Creatinine, Serum 0.84 mg/dL (0.55-1.02); EST Glomerular Filtration Rate 79 mL/min (>60); Est Glom Filt Rate - Afr Amer 96 mL/min (>60); Globulin 3.9 g/dL (2.2-4.2); Glucose 127 mg/dL (74-106); High Density Lipoprotein 35 mg/dL; Potassium 3.7 mmol/L (3.5-5.1); Protein, Total 7.2 g/dL (6.4-8.2); Sodium Level 138 mmol/L (136-145); Triglycerides 140 mg/dL; Very Low Density Lipoprotein 28 mg/dL (5-40)
[2024-01-27 17:25] LABS: Vitamin B12 182 pg/mL (211-911); Vitamin D,25 Hydroxy 9.2 ng/mL
== END | disposition home or self-care (01) ==
LOC: LAB 07:04
PROVIDERS: PCP Internal Medicine; Referring Provider Psychiatry & Neurology Psychiatry; Visit Provider Psychiatry & Neurology Psychiatry
DX: R53.83 Other fatigue (principal); Z79.899 Other long term (current) drug therapy
CPT/HCPCS: 36415; 80053; 80061; 82306; 82607; 84443; 85027

== ENCOUNTER 2024-03-18 12:55 | Outpatient (RCR) | payer MEDICARE, MEDICAID, SELFPAY | END 2024-04-10 23:59 | LOC: NS 12:55 | PROVIDERS: PCP Internal Medicine; Referring Provider Internal Medicine Gastroenterology; Visit Provider Internal Medicine Gastroenterology | DX: Z71.3 Dietary counseling and surveillance (principal); E11.9 Type 2 diabetes mellitus without complications; Z91.018 Allergy to other foods | CPT/HCPCS: 97803 ==

== ENCOUNTER → 2024-07-07 | Outpatient (CLI) | payer MEDICARE, MEDICAID, SELFPAY ==
--- NOTE | 2024-07-07 11:00 | BI_ITS ---
EXAM: SCRN MAMM (CAD)W/WILLIAM BILAT DATE: 07/07/2024 CLINICAL HISTORY: F, Age 43 y/o , SCREENING MAMMOGRAM FOR BREAST CANCER No family history. BREAST CANCER RISK ASSESSMENT: Not assessed. TECHNIQUE: Bilateral screening digital breast tomosynthesis with 2D and 3D images. Computer aided detection. COMPARISON: Prior exam(s) dated July 03, 2023.. FINDINGS: TISSUE DENSITY: The breast tissue is almost entirely fatty. Bilateral Breast Mammographic Findings: No significant masses, calcifications or other abnormalities are identified. No suspicious masses, areas of developing architectural distortion, or suspicious calcifications. There has been no significant interval change. BI/SCRN MAMM (CAD)W/WILLIAM BILAT IMPRESSION: OVERALL FINAL ASSESSMENT: BIRADS 1 NEGATIVE RECOMMENDATION: Routine annual follow-up in 1 Year A letter with findings and recommendations will be mailed to the patient. Reading Location: [place] [address]
== END | disposition home or self-care (01) ==
LOC: OPBI 10:55
PROVIDERS: PCP Internal Medicine; Referring Provider Nurse Practitioner Women's Health; Visit Provider Nurse Practitioner Women's Health
DX: Z12.31 Encounter for screening mammogram for malignant neoplasm of breast (principal)
CPT/HCPCS: 77063; 77067

== ENCOUNTER → 2024-07-08 | Outpatient (CLI) | payer MEDICARE, MEDICAID, SELFPAY ==
[2024-07-08 12:31] LABS: Absolute Lymphocyte Count 2.25 X10^3/uL (0.83-4.51); Absolute Neutrophil Count 5.3 X10^3/uL (2.0-7.7); Basophil# 0.04 X10^3/uL; Basophil% 0.5 % (0-1); Eosinophil# 0.33 X10^3/uL; Eosinophils% 3.9 % (0-5); Hematocrit 37.6 % (37-47); Lymphocyte # 2.25 X10^3/ul (0.83-4.51); Lymphocyte % 26.6 % (19-41); Mean Corp Hgb Conc 31.9 g/dL (32-36); Mean Corpuscular Hgb 28.8 pg (27.0-32.0); Mean Corpuscular Volume 90.2 fL (81-99); Monocyte% 5.9 % (0-10); NRBC Flagged by Analyzer 0 % (0-5); Neutrophil # 5.32 X10^3/uL (2.7-7.7); Neutrophil % 62.7 % (47-70); Platelet Count 194 K/mm3 (150-450); RBC Distribution Width CV 14.6 % (11.6-14.6); RBC Distribution Width SD 48.1 fl (35.1-43.9); Red Blood Count 4.17 M/mm3 (4.2-5.4); White Blood Count 8.5 K/mm3 (4.4-11.0)
[2024-07-08 13:18] LABS: ALB/GLOB Ratio 1.3 RATIO (0.9-2.4); AST(SGOT) 41 U/L (<=31); Alanine Aminotransfer ALT/SGPT 32 U/L (<=34); Albumin, Serum 4.1 g/dL (3.5-5.0); Alkaline Phosphatase 71 U/L (35-104); Anion Gap 12 (5-15); BUN 6 mg/dL (4-19); BUN/Creat Ratio 7.6 RATIO (10-20); Calcium,Total 9.8 mg/dL (7.6-11.0); Carbon Dioxide 24.7 mmol/L (21.0-32.0); Chloride 102 mmol/L (98-108); Creatinine, Serum 0.83 mg/dL (0.70-1.20); EST Glomerular Filtration Rate 91 (>60); Globulin 3.1 g/dL (2.2-4.2); Glucose 102 mg/dL (70-99); Potassium 4.2 mmol/L (3.3-5.1); Protein, Total 7.2 g/dL (5.9-8.4); Sodium Level 139 mmol/L (133-145); Total Bilirubin 0.37 mg/dL (0.00-1.30); Vitamin B12 1372 pg/mL (180-914); Vitamin D,25 Hydroxy 42.7 ng/mL (30-100)
== END | disposition home or self-care (01) ==
LOC: BIMLAB 08:56
PROVIDERS: PCP Internal Medicine; Referring Provider Internal Medicine; Visit Provider Internal Medicine
DX: E11.69 Type 2 diabetes mellitus with other specified complication (principal); E55.9 Vitamin D deficiency, unspecified
CPT/HCPCS: 36415; 80053; 82306; 82607; 83036; 85025